=== PATIENT | female | born 1995 | race Caucasian/White ===

== ENCOUNTER → 2022-05-18 | Outpatient (CLI) | payer BC, SELFPAY ==
[2022-05-18 17:20] LABS: Absolute Lymphocyte Count 2.97 X10^3/uL (0.83-4.51); Absolute Neutrophil Count 3.2 X10^3/uL (2.0-7.7); Basophil# 0.07 X10^3/uL; Eosinophil# 0.22 X10^3/uL; Hematocrit 37.9 % (37-47); Hemoglobin 12.9 g/dL (12.0-15.0); Lymphocyte # 2.97 X10^3/ul (0.83-4.51); Lymphocyte % 40.8 % (19-41); Mean Corpuscular Hgb 29.3 pg (27.0-32.0); Mean Corpuscular Volume 85.9 fL (81-99); Mean Platelet Vol. 9.9 fl (6.2-12.0); Monocyte# 0.78 X10^3/uL; Monocyte% 10.7 % (0-10); NRBC Flagged by Analyzer 0 % (0-5); Neutrophil # 3.23 X10^3/uL (2.7-7.7); Neutrophil % 44.4 % (47-70); Platelet Count 235 K/mm3 (150-450); RBC Distribution Width CV 12.5 % (11.6-14.6); RBC Distribution Width SD 39.5 fl (35.1-43.9); Red Blood Count 4.41 M/mm3 (4.2-5.4); White Blood Count 7.3 K/mm3 (4.4-11.0)
[2022-05-18 17:43] LABS: Erythrocyte Sedimentation Rate 12 mm/hr (0-30)
[2022-05-18 18:18] LABS: ALB/GLOB Ratio 0.9 RATIO (0.9-2.4); AST(SGOT) 18 U/L (15-37); Alanine Aminotransfer ALT/SGPT 29 U/L (13-56); Albumin, Serum 3.7 g/dL (3.2-5.0); Alkaline Phosphatase 84 U/L (45-117); Anion Gap 7 (5-15); BUN 9 mg/dL (7-18); BUN/Creat Ratio 13.7 RATIO (10-20); CRP < 2.90 mg/L (0.0-3.0); Calcium,Total 8.9 mg/dL (8.5-10.1); Chloride 106 mmol/L (98-107); Creatinine, Serum 0.66 mg/dL (0.55-1.02); EST Glomerular Filtration Rate 117 mL/min (>60); Est Glom Filt Rate - Afr Amer 141 mL/min (>60); Free T3 2.9 pg/mL (2.18-3.98); Glucose 92 mg/dL (74-106); LDH 203 U/L (84-246); Potassium 3.6 mmol/L (3.5-5.1); Protein, Total 7.7 g/dL (6.4-8.2); Sodium Level 140 mmol/L (136-145); T4 Free Direct 1.03 ng/dL (0.76-1.46); Thyroid Stim Hormone (TSH) 0.93 uIU/mL (0.358-3.74)
[2022-05-22 13:07] LABS: Anti-Centromere B Ab <0.2 AI (0.0-0.9); Anti-Chromatin <0.2 AI (0.0-0.9); Anti-Jo <0.2 AI (0.0-0.9); Anti-Scleroderma-70 AB <0.2 AI (0.0-0.9); RNP Ab 0.2 AI (0.0-0.9); SJOGREN'S Anti-SS-A test < 0.2 AI (0.0-0.9); SJOGREN'S Anti-SS-B test 1.3 AI (0.0-0.9); Smith Ab <0.2 AI (0.0-0.9)
[2022-05-22 14:08] LABS: Endomysial Antibody IgA Negative (Negative)
[2022-05-22 15:07] LABS: Albumin 3.9 g/dL (2.9-4.4); Alpha-1-Globulins 0.3 g/dL (0.0-0.4); Alpha-2-Globulins 0.8 g/dL (0.4-1.0); Gamma Globulin 1.3 g/dL (0.4-1.8); Immunoglobulin A 156 mg/dL (87-352); Immunoglobulin E < 2 IU/mL (6-495); Immunoglobulin G 1185 mg/dL (586-1602); Immunoglobulin M 179 mg/dL (26-217); PROEL- TOTAL PROTEIN 7.4 g/dL (6.0-8.5)
[2022-05-22 16:07] LABS: Cytoplasmic Ab (C-ANCA) <1:20 titer (Neg:<1:20); Perinuclear Ab (P-ANCA) <1:20 titer (Neg:<1:20)
[2022-05-22 16:17] LABS: Immunoglobulin A 159 mg/dL (87-352); t-Transglutaminase IgA <2 U/mL (0-3)
[2022-05-22 16:24] LABS: Anti-dsDNA Ab <1 IU/mL (0-9)
== END | disposition home or self-care (01) ==
LOC: LAB 16:30
PROVIDERS: Referring Provider Internal Medicine Gastroenterology; Visit Provider Internal Medicine Gastroenterology
DX: R19.7 Diarrhea, unspecified (principal)
CPT/HCPCS: 36415; 80053; 82533; 82784; 82785; 83516; 83615; 84165; 84439; 84443; 84481; 85025; 85652; 86140; 86225; 86235; 86255; 86256; 86334

== ENCOUNTER → 2022-06-03 | Outpatient (CLI) | payer BC, SELFPAY ==
[2022-06-08 18:52] LABS: Pancreatic Elastase, Fecal 485 (>200)
[2022-06-08 18:54] LABS: Calprotectin, Stool <16 ug/g (0-120)
== END | disposition home or self-care (01) ==
LOC: LAB 09:00
PROVIDERS: Referring Provider Internal Medicine Gastroenterology; Visit Provider Internal Medicine Gastroenterology
DX: R19.7 Diarrhea, unspecified (principal)
CPT/HCPCS: 82653; 83630; 83993

== ENCOUNTER → 2022-08-09 | Outpatient (CLI) | payer BC, SELFPAY ==
[2022-08-14 17:07] LABS: Beef <0.10 kU/L (Class 0); Clam <0.10 kU/L (Class 0); Codfish <0.10 kU/L (Class 0); Corn <0.10 kU/L (Class 0); Egg, White <0.10 kU/L (Class 0); Egg, Whole <0.10 kU/L (Class 0); Milk (Cow) <0.10 kU/L (Class 0); Peanut <0.10 kU/L (Class 0); Pork <0.10 kU/L (Class 0); SCALLOP <0.10 kU/L (Class 0); SESAME SEED <0.10 kU/L (Class 0); Shrimp <0.10 kU/L (Class 0); Soybean <0.10 kU/L (Class 0); Walnut, (Food) <0.10 kU/L (Class 0); Wheat <0.10 kU/L (Class 0)
[2022-08-15 11:10] LABS: Chocolate <0.10 kU/L (Class 0)
== END | disposition home or self-care (01) ==
LOC: LAB 16:18
PROVIDERS: Referring Provider Internal Medicine Gastroenterology; Visit Provider Internal Medicine Gastroenterology
DX: D80.8 Other immunodeficiencies with predominantly antibody defects (principal); K21.9 Gastro-esophageal reflux disease without esophagitis; R19.7 Diarrhea, unspecified
CPT/HCPCS: 36415; 86003; 86005

== ENCOUNTER 2023-06-09 00:27 | Inpatient (IN) | payer BC, SELFPAY ==
[2023-06-09] VITALS (29 sets, daily range): BP systolic 97–132; BP diastolic 49–85; PULSE 68–153; RESP 16; TEMP 36.5–37.1; O2SAT 93–100; BMI 29.1
[2023-06-09] MEDS: LACTATED RINGERS 500 ML 999 ML IV (00:30)
--- NOTE | 2023-06-09 00:30 | PCM.HP.OB ---
HPI - General HPI Narrative TOMER SANTOS, is a 27 F who presents at 40w2d in active labor. SROM around 2330 on 06/08/23. Maternal Data Information JESSICA Calculator Estimated Delivery Date Method Current WG Current Estimate 06/07/23 Manual 40w 2d PFSH PFSH Allergy/AdvReac Type Severity Reaction Status Date / Time morphine Allergy Other Verified 06/09/23 00:29 NST FHR Rate Baby A Baseline: 125 Variability:: Moderate Accelerations:: 15 x 15 FHR Category:: Category I Uterine Activity:: every 1.5-2 minutes strong ROS Constitutional Constitutional: Reports systems reviewed and no addt'l complaints, except as documented; Denies headache(s) Eyes Eyes: Denies acute decrease in peripheral vision, blurry vision or change in vision ENT HEENT: Reports systems reviewed and no addt'l complaints, except as documented Cardiovascular Cardiovascular: Denies chest pain or dizziness Respiratory/Chest Respiratory/Chest: Denies cough, dyspnea, dyspnea on exertion, shortness of breath at rest or shortness of breath with exertion Gastrointestinal Gastrointestinal: Denies abdominal pain, diarrhea, nausea or vomiting Musculoskeletal Musculoskeletal: Denies limited range of motion Integumentary Integumentary: Reports systems reviewed and no addt'l complaints, except as documented Neurologic Neurologic: Reports systems reviewed and no addt'l complaints, except as documented Psychiatric Psychiatric: Reports systems reviewed and no addt'l complaints, except as documented Endocrine Endocrinology: Reports systems reviewed and no addt'l complaints, except as documented Hematologic/Lymphatic Hematologic/Lymphatic: Reports systems reviewed and no addt'l complaints, except as documented Allergic/Immunologic Allergic/Immunologic: Reports systems reviewed and no addt'l complaints, except as documented Vital Signs Vital Signs Vital Signs: 06/09/23 00:30 06/09/23 00:30 Pulse Rate 72 Blood Pressure 124/80 H BP Systolic 124 BP Diastolic 80 Weight Weight: 186 lb Body Mass Index (BMI) 29.1 Physical Exam Const alert and oriented x3 General Appearance: cooperative Orientation / Consciousness: awake, oriented to person, oriented to place and oriented to time Exam Limitations: no limitations HEENT normocephalic Head and Scalp: normal to inspection, normocephalic and atraumatic Face and Sinus: normal facial exam Eyes General Eye: normal appearance of both eyes Neck full ROM Chest Chest: symmetrical chest wall rise Resp normal respiratory effort and normal air movement Auscultation: clear to auscultation bilaterally Cardio regular rate, regular rhythm, S1 normal heart sound, S2 normal heart sound, no murmurs, no rub, no gallops and no clicks GI normal to inspection, nondistended, normoactive bowel sounds and non-tender appearance of the vagina normal Bladder / Kidney Exam: no CVA tenderness Manual OB Exam: estimated gestational size appropriate, presentation cephalic, dilated 6.5cm, effaced 80% and station 0 Amniotic Fluid: clear amniotic fluid Back/Spine normal ROM Extremity normal to inspection and full ROM Skin no rashes or lesions noted Neuro oriented x3, CN's II-XII intact bilaterally and moves all extremities Sensorium / Orientation: awake, alert and oriented to person Motor Exam: clonus absent Deep Tendon Reflexes: Rt Patellar (L4): 2+ and Lt Patellar (L4): 2+ Labs Labs Labs: Hct 37.9 % (37-47) Hgb 12.9 g/dL (12.0-15.0) Miscellaneous Test GBS negative RPR NR Rubella Immune HBsAG negative HepC negative HIV negative O positive GC/CT negative Assessment & Plan (1) Anemia affecting : (2) 40 weeks gestation of : (3) Active labor at term: (4) SROM (spontaneous rupture of membranes): (5) History of anorexia nervosa: PLAN: Plan 1) Admit to labor and delivery 2) Routine labs 3) Continuous EFM 4) Epidural for pain management upon request 5) Positonal changes 6) collaborative physician, notified of patient admission, status, above assessment and plan
--- OUTSIDE RECORDS SUMMARY | 2023-06-09 00:33 | XMS RPT_ITS | CCD ---
Author Name Unknown Address [id number] [place] [address] Organization [facility] Care Team Providers Care Land Leases And Rentals Manager Name Role Phone TEODORO MYERS Attending Unavailable Unavailable Primary Care Provider Unavailabl e NELI CADET Attending Unavailable NELI CADET Attending Unavailable KRISTAN JACKSON Attending Unavailable KRISTAN JACKSON Referring Unavailable STEVEN CABRERA Attending Unavail able TEODORO ALEJANDRO Attending Unavailable NELI CADET Attending Unavailable STEVEN CABRERA Attending Unavail able KRISTAN JACKSON Attending Unavailable KAYLA DURAN Referring Unavailable WISWELLKRISTAN Attending Unavailable TEODORO ALEJANDRO Attending Unavailable KAYLA DURAN Attending Unavailable DONNA, KRISTAN Attending Unavailable CHELLY, BEBA Attending Unavailable TEODORO ALEJANDRO Referring Unavailable AUNDREA CASTELAN Attending Unavailable NELI CADET Referring Unavailable CHELLY, BEBA Referring Unavailable CHELLY, BEBA Referring Unavailable NELI CADET Attending Unavailable KAYLA DURAN Attending Unavailable Allergies Allergy Classification Reported Allergen(s) Allergy Type Date of Onset Reaction(s) Facility (20 sources) Morphine; Translations: [MORPHINE] Drug Allergy 06-23-2022 Itching, Rash, Swelling [facility] Medications Completed/Discontinued Medications Medication Drug Class(es) Dates Sig (Normalized) Sig (Original) amoxicillin 875 mg oral tablet (3 sources) Penicillin-class Antibacterial Start: 04-11-2023 take 1 tablet by mouth every twelve hours amoxicillin (AMOXIL) 875 mg tablet Take 1 tablet by mouth every 12 hours. 0 04/11/2023 Active Problems Active Problems Problem Classification Problem Date Documented Date Episodic/Chronic Deficiency and other anemia (7 sources) Anemia; Translations: [Other specified anemias] Onset: 03-20-2023 03-20-2023 Episodic Immunizations and screening for infectious disease (5 sources) Patient encounter status; Translations: [Encounter for screening for human papillomavirus (HPV)] Episodic Other complications of (1 source) Anemia of ; Translations: [Anemia complicating , third trimester] 04-16-2023 Chronic Other complications of (1 source) Anemia complicating , third trimester; Translations: [Anemia during in third trimester] Onset: 04-16-2023 Chronic Other complications of (2 sources) Nausea and vomiting; Translations: [Vomiting of , unspecified] Episodic Other female genital disorders (2 sources) Abnormal uterine bleeding; Translations: [Abnormal uterine and vaginal bleeding, unspecified] Chronic Other female genital disorders (1 source) Abnormal uterine and vaginal bleeding, unspecified; Translations: [Abnormal uterine bleeding (AUB)] Onset: 09-11-2022 Chronic Other and delivery including normal (15 sources) Normal ; Translations: [Encounter for supervision of normal first , unspecified trimester] Onset: 10-26-2022 Episodic Other screening for suspected conditions (not mental disorders or infectious disease) (1 source) Cancer cervix screening status; Translations: [Encounter for screening for malignant neoplasm of cervix] Episodic Other skin disorders (1 source) Skin lesion; Translations: [Disorder of the skin and subcutaneous tissue, unspecified] Episodic Residual codes; unclassified (1 source) Gestation period, 12 weeks; Translations: [12 weeks gestation of ] 11-23-2022 Episodic Residual codes; unclassified (1 source) Gestation period, 16 weeks; Translations: [16 weeks gestation of ] 12-21-2022 Episodic Residual codes; unclassified (1 source) Gestation period, 19 weeks; Translations: [19 weeks gestation of ] 01-16-2023 Episodic Residual codes; unclassified (1 source) Gestation period, 20 weeks; Translations: [20 weeks gestation of ] 01-23-2023 Episodic Residual codes; unclassified (1 source) Gestation period, 21 weeks; Translations: [21 weeks gestation of ] 01-30-2023 Episodic Residual codes; unclassified (1 source) Gestation period, 24 weeks; Translations: [24 weeks gestation of ] 02-20-2023 Episodic Residual codes; unclassified (1 source) Gestation period, 28 weeks; Translations: [28 weeks gestation of ] 03-19-2023 Episodic Residual codes; unclassified (1 source) Gestation period, 30 weeks; Translations: [30 weeks gestation of ] 04-02-2023 Episodic Residual codes; unclassified (1 source) Gestation period, 32 weeks; Translations: [32 weeks gestation of ] 04-16-2023 Episodic Residual codes; unclassified (1 source) Gestation period, 34 weeks; Translations: [34 weeks gestation of ] 05-02-2023 Episodic Residual codes; unclassified (1 source) 38 weeks gestation of ; Translations: [38 weeks gestation of ] Onset: 05-30-2023 Episodic Residual codes; unclassified (1 source) 37 weeks gestation of ; Translations: [37 weeks gestation of ] Onset: 05-22-2023 Episodic Residual codes; unclassified (1 source) 24 weeks gestation of ; Translations: [24 weeks gestation of ] Onset: 03-19-2023 Episodic Past or Other Problems Problem Classification Problem Date Documented Da te Episodic/Chronic Abdominal pain (5 sources) Generalized abdominal pain; Translations: [Generalized abdominal pain] Onset: 09-11-2022 Episodic Other complications of (1 source) Vomiting of , unspecified; Translations: [Nausea and vomiting during ] Onset: 10-26-2022 Episodic Residual codes; unclassified (20 sources) FH: Congenital heart disease; Translations: [Family history of other congenital malformations, deformations and chromosomal abnormalities] Onset: 10-12-2022 Episodic Residual codes; unclassified (1 source) 21 weeks gestation of ; Translations: [21 weeks gestation of ] Onset: 01-30-2023 Episodic Residual codes; unclassified (1 source) 16 weeks gestation of ; Translations: [16 weeks gestation of ] Onset: 01-16-2023 Episodic Screening and history of mental health and substance abuse codes (20 sources) H/O: anorexia nervosa; Translations: [Personal history of other mental and behavioral disorders] Onset: 10-12-2022 Episodic Results Test Name Value Interpretation Reference Range Facil ity Vital Signs Date Time Vital Sign Value Performing Clinician Amina hart 05-02-2023 16:34-0500 Body weight 80.65 kg Kayla Plotila BARKER Work Phone: [facility] 05-02-2023 16:34-0500 Diastolic blood pressure 78 mm[Hg] Kayla Duran INDUSTRIAL ROOFER HELPER.CNM Work Phone: [facility] 05-02-2023 16:34-0500 Systolic blood pressure 120 mm[Hg] Kayla Duran INDUSTRIAL ROOFER HELPER.CNM Work Phone: [facility] 04-16-2023 16:30-0500 Body weight 79.83 kg Teodoro Alejandro INDUSTRIAL ROOFER HELPER.CNM Work Phone: [facility] 04-16-2023 16:30-0500 Diastolic blood pressure 60 mm[Hg] Teodoro Alejandro INDUSTRIAL ROOFER HELPER.CNM Work Phone: [facility] 04-16-2023 16:30-0500 Systolic blood pressure 108 mm[Hg] Teodoro Alejandro INDUSTRIAL ROOFER HELPER.CNM Work Phone: [facility] 04-02-2023 16:09-0500 Body weight 78.47 kg Kristan Jackson MD Work Phone: [facility] 04-02-2023 16:09-0500 Diastolic blood pressure 60 mm[Hg] Kristan Jackson MD Work Phone: [facility] 04-02-2023 16:09-0500 Systolic blood pressure 102 mm[Hg] Kristan Jackson MD Work Phone: [facility] 03-19-2023 15:06-0500 Body weight 77.11 kg Aundrea Castelan MD Work Phone: [facility] 03-19-2023 15:06-0500 Diastolic blood pressure 62 mm[Hg] Aundrea Castelan MD Work Phone: [facility] 03-19-2023 15:06-0500 Systolic blood pressure 102 mm[Hg] Aundrea Castelan MD Work Phone: [facility] 02-20-2023 16:10-0400 Body weight 77.11 kg Neli Cadet MD Work Phone: [facility] 02-20-2023 16:10-0400 Diastolic blood pressure 62 mm[Hg] Neli Cadet MD Work Phone: [facility] 02-20-2023 16:10-0400 Systolic blood pressure 102 mm[Hg] Neli Cadet MD Work Phone: [facility] 01-30-2023 14:29-0400 Body temperature 99.19 [degF] Neli Cadet MD Work Phone: [facility] 01-30-2023 14:29-0400 Body weight 74.75 kg Neli Cadet MD Work Phone: [facility] 01-30-2023 14:29-0400 Diastolic blood pressure 62 mm[Hg] Neli Cadet MD Work Phone: [facility] 01-30-2023 14:29-0400 Systolic blood pressure 108 mm[Hg] Neli Cadet MD Work Phone: [facility] 01-23-2023 15:46-0400 Body weight 75.3 kg Neli Cadet MD Work Phone: [facility] 01-23-2023 15:46-0400 Diastolic blood pressure 56 mm[Hg] Neli Cadet MD Work Phone: [facility] 01-23-2023 15:46-0400 Systolic blood pressure 94 mm[Hg] Neli Cadet MD Work Phone: [facility] 12-21-2022 15:21-0400 Body weight 72.94 kg Kayla Duran INDUSTRIAL ROOFER HELPER.CNM Work Phone: [facility] 12-21-2022 15:21-0400 Diastolic blood pressure 56 mm[Hg] Kayla Warnerts INDUSTRIAL ROOFER HELPER.CNM Work Phone: [facility] 12-21-2022 15:21-0400 Systolic blood pressure 90 mm[Hg] Kayla Plotts INDUSTRIAL ROOFER HELPER.CNM Work Phone: [facility] 11-23-2022 15:48-0400 Body weight 72.58 kg Elina Stinson APRN.SCREEN AND CYCLONE REPAIRER Work Phone: [facility] 11-23-2022 15:48-0400 Diastolic blood pressure 70 mm[Hg] Elina Stinson INDUSTRIAL ROOFER HELPER.SCREEN AND CYCLONE REPAIRER Work Phone: [facility] 11-23-2022 15:48-0400 Systolic blood pressure 110 mm[Hg] Elina Stinson INDUSTRIAL ROOFER HELPER.SCREEN AND CYCLONE REPAIRER Work Phone: [facility] 10-26-2022 14:54-0400 Body height 170.2 cm Kristan Jackson MD Work Phone: [facility] 10-26-2022 14:54-0400 Body weight 75.75 kg Kristan Jackson MD Work Phone: [facility] 10-26-2022 14:54-0400 Diastolic blood pressure 70 mm[Hg] Kristan Jackson MD Work Phone: [facility] 10-26-2022 14:54-0400 Systolic blood pressure 110 mm[Hg] Kristan Jackson MD Work Phone: [facility] 09-11-2022 15:47-0400 Diastolic blood pressure 60 mm[Hg] Beba Chelly INDUSTRIAL ROOFER HELPER.SCREEN AND CYCLONE REPAIRER Work Phone: [facility] 09-11-2022 15:47-0400 Systolic blood pressure 100 mm[Hg] Beba Alburgh INDUSTRIAL ROOFER HELPER.SCREEN AND CYCLONE REPAIRER Work Phone: [facility] 06-23-2022 15:00-0500 Body height 172.7 cm Kristan Jackson MD Work Phone: [facility] 06-23-2022 15:00-0500 Body weight 76.66 kg Kristan Jackson MD Work Phone: [facility] 06-23-2022 15:00-0500 Diastolic blood pressure 68 mm[Hg] Kristan Jackson MD Work Phone: [facility] 06-23-2022 15:00-0500 Systolic blood pressure 110 mm[Hg] Kristan Jackson MD Work Phone: [facility] Encounters Encounter Date Encounter Type Care Provider Facility Start: 06-06-2023 End: 06-06-2023 ambulatory STEVEN ALMANZA Facility:[facility] Start: 05-30-2023 End: 05-31-2023 ambulatory TEODORO ALEJANDRO Facility:[facility] Start: 05-22-2023 End: 05-23-2023 ambulatory STEVEN ALMANZA Facility:[facility] Start: 05-17-2023 End: 05-17-2023 ambulatory NELI CADET Facility:[facility] Start: 05-02-2023 End: 05-02-2023 ambulatory KAYLA DURAN Facility:[facility] Start: 05-02-2023 End: 05-02-2023 Patient encounter procedure Kayla Duran INDUSTRIAL ROOFER HELPER.CNM Work Phone: OB/Gynecology Procedures Date Procedure Procedure Detail Performing Clinician Start: 05-02-2023 RSV VACCINE, BIVALEN T (ABRYSVO) Kayla Duran INDUSTRIAL ROOFER HELPER.CNM Work Phone: Start: 05-02-2023 URINE OB DIP B/O Amanda Duran INDUSTRIAL ROOFER HELPER.CNM Work Phone: Start: 04-16-2023 URINE OB DIP B/O Shahzad Alejandro INDUSTRIAL ROOFER HELPER.CNM Work Phone: Start: 04-02-2023 INFLUENZA VACCINE, A GE 6 MO - 64 YR, QUADRIVALENT (AFLURIA, FLULAVAL, FLUZONE) Kristan Jackson MD Work Phone: Start: 04-02-2023 URINE OB DIP B/O Kristan davis MD Work Phone: Start: 03-19-2023 URINE OB DIP B/O Svitlana Castelan MD Work Phone: Start: 02-20-2023 URINE OB DIP B/O Neli Cadet MD Work Phone: Start: 01-30-2023 Urnls dip stick/tabl et rgnt auto w/o microscopy Neli Cadet MD Work Phone: Start: 01-23-2023 URINE OB DIP B/O Neli Cadet MD Work Phone: Start: 01-16-2023 Us preg uterus after 1st trimest 05/14 gestation Kayla Duran INDUSTRIAL ROOFER HELPER.CNM Work Phone: Start: 12-21-2022 URINE OB DIP B/O Amanda Duran APRN.[employer] Work Phone: Start: 10-26-2022 Antibody screen Kristan buckner MD Work Phone: Start: 10-26-2022 Antibody screen NELI CADET Plan of Treatment Date Care Activity Detail Author Start: 03-19-2033 Urine microalbumin profile [facility] Start: 06-23-2025 PAP TESTING PAP TESTING [facility] Start: 06-23-2025 Screening for malign ant neoplasm of cervix Pap Testing [facility] Start: 04-12-2023 RSV Vaccine (1 - Ris k 1-dose series) RSV Vaccine (1 - Risk 1-dose series) [facility] Start: 02-20-2023 End: 04-22-2023 CBC W Auto Differential panel - Blood CBC + DIFF Lab Routine 24 weeks gestation of Expected: 02/20/2023, Expires: 04/22/2023 [facility] Work Phone: Immunizations Immunization Date Immunization Notes Care Provider Fa [facility] 05-02-2023 respiratory syncytia l virus (RSV) vaccine, bivalent (ABRYSVO) Kayla Duran APRN.[employer] Work Phone: [facility] 04-02-2023 influenza, injectabl e, quadrivalent, contains preservative Kristan Jackson MD Work Phone: [facility] 03-19-2023 tetanus toxoid, redu jadyn diphtheria toxoid, and acellular pertussis vaccine, adsorbed Aundrea Castelan MD Work Phone: [facility] 03-10-2022 influenza virus vacc ine, unspecified formulation Neli Cadet MD Work Phone: [facility] Payers Date Payer Category Payer Unknown [employer] BLUE CARD PPO OOS [id number] 2022-Present [phone] [id number] [place] [address] PPO [id number] 2022 Unknown [id number] 2021 Unknown [id number] 1995 Unknown [id number] Social History Date Type Detail Facility Tobacco smoking stat [facility] Tobacco smoking consumption unknown [facility] Start: 1995 Sex Assigned At Not on file [facility] Start: 06-23-2022 Tobacco smoking stat [facility] Never smoked tobacco [facility] Start: 06-23-2022 Tobacco use and exposure Smokeless t obacco non-user [facility] Start: 06-23-2022 End: 09-11-2022 Alcohol intake Current drinker of alcohol (finding) [facility] Start: 10-12-2022 End: 05-02-2023 Alcohol intake Ex-drinker (finding) [facility] Start: 10-12-2022 Education 17 [facility] Start: 09-14-2022 [facility] Start: 09-18-2022 End: 10-26-2022 History of Social function [facility] Start: 09-18-2022 End: 10-26-2022 Tobacco use panel [facility] National Score (1-10 0), lower number is lower risk 92 [facility] Goals Date Patient Goal Desired Activity /State Personal health goal Clinical Notes 05-26-2022 to 05-31-2023 Quick Notes - Kayla Duran APRN.CNM - 05/02/2023 4:43 PM ESTPatient InstructionsTelephone Encounter - Delia Mcdaniel RN - 04/26/2023 12:56 PM ESTPatient Instructions Note Date & Type Note Facility 05-31-2023 Note HNO ID: [id number] Author: ?, ?, ? Service: ? Author Type: ? Type: Progress Notes Filed: 05/31/2023 09:12 Note Text: POPULATION HEALTH NAVIGATION OUTREACH Action/ 3rd attempt- Called patient as requested by patient. Left a voicemail and asked that she call me back. OB/PEDS Patient Identified by Name and : NO Outreach Outcome/Action Unable to reach patient: Left message Did you use a PCP flex slot to schedule this appointment? N/A Navigation Signature: Mathieu Stallings May 31, 2023 9:10 AM [facility] 05-24-2023 Note Patient Outreach (FREDIS TNAV) TOMER SANTOS ([id number]) 1995 F Date Time Provider Department 05/24/23 MATHIEU LING (IDANIA) NETNAV During your visit today, we recorded the following information about you: Mathieu Castorena 05/24/2023 10:26 AM Signed POPULATION HEALTH NAVIGATION OUTREACH Action/FYI Called and spoke to patient and she doesn't have a pediatrican selected. she said to send her the link via [employer] and I can call her next week. [employer] message sent per patient request. OB/PEDS Patient Identified by Name and : YES, via phone Outreach Outcome/Action Spoke to patient / parent / legal guardian: Patient will return the call or ask for return call [employer] message sent Did you use a PCP flex slot to schedule this appointment? N/A Reason for Outreach [place] Payer: Payor: AMIRA / Plan: BLUE CARD PPO OOS / Product Type: PPO / Care Gap Reviewed:: N/A Reminder: Reminder note to check Health Maintenance for items below Health Maintenance items due: HPV Vaccine(1 - 2-dose series) due on 2005 Covid-19 Vaccine(2022- season) due on 01/12/2023 Depression Assessment Never done Navigation Signature: Mathieu tSallings May 24, 2023 10:21 AM Mathieu Castorena 05/31/2023 9:12 AM Signed POPULATION HEALTH NAVIGATION OUTREACH Action/I 3rd attempt- Called patient as requested by patient. Left a voicemail and asked that she call me back. OB/PEDS Patient Identified by Name and : NO Outreach Outcome/Action Unable to reach patient: Left message Did you use a PCP flex slot to schedule this appointment? N/A Navigation Signature: Mathieu Stallings May 31, 2023 9:10 AM Allergies As of Date: 05/24/2023 Noted Allergy Reaction MORPHINE 06/23/2022 9 - Itching 2 - Rash 7 - Swelling Date Reviewed: 05/22/2023 Reviewed by: Mathieu Mosqueda MA - Fully Assessed Reason for Visit: Population Health Navigation Outreach [3910] Cmt: OB/PEDS Prescriptions as of 05/31/2023 - ferrous sulfate (IRON ORAL) Take by mouth. - prental multivitamin 27 mg iron- 800 mcg tablet Take 1 tablet by mouth once daily. Problem List As Of Date 05/24/2023 Noted Resolved History of anorexia nervosa [Z86.59] 10/12/2022 Family history of congenital heart defect [Z82.*10/12/2022 Patient request for diagnostic testing [Z01.89] 10/12/2022 Other specified anemias [D64.89] 03/20/2023 Encounter Status:Closed by MATHIEU CASTORENA on 05/24/23 [facility] 05-24-2023 Note HNO ID: [id number] Author: ?, ?, ? Service: ? Author Type: ? Type: Progress Notes Filed: 05/24/2023 10:26 Note Text: POPULATION HEALTH NAVIGATION OUTREACH Action/KWAMEI Called and spoke to patient and she doesn't have a pediatrican selected. she said to send her the link via [employer] and I can call her next week. [employer] message sent per patient request. OB/PEDS Patient Identified by Name and : YES, via phone Outreach Outcome/Action Spoke to patient / parent / legal guardian: Patient will return the call or ask for return call [employer] message sent Did you use a PCP flex slot to schedule this appointment? N/A Reason for Outreach [place] Payer: Payor: NABEELEM / Plan: BLUE CARD PPO OOS / Product Type: PPO / Care Gap Reviewed:: N/A Reminder: Reminder note to check Health Maintenance for items below Health Maintenance items due: HPV Vaccine(1 - 2-dose series) due on 2005 Covid-19 Vaccine( season) due on 01/12/2023 Depression Assessment Never done Navigation Signature: Mathieu Stallings May 24, 2023 10:21 AM [facility] 05-02-2023 Miscellaneous Notes Formattin g of this note might be different from the original. Tomer Santos is a 27 year old female who presents at 34w6d Estimated Date of Delivery: 06/07/23 for a routine visit. Good movement. Denies headache, visual changes, chest pain, shortness of breath, vaginal bleeding, leakage of fluid, or dysuria. Feeling well, no complaints. Desires RSV vaccine today. Size equal to dates. PTL precautions and timing of contractions reviewed. RTC in 2 weeks for JOVANNY with GBS. Kayla Duran APRN.CNM documented in this encounter [facility] 05-02-2023 Instructions Mathieu Mosqueda MA - 05/02/2023 4:29 PM EST SEQUENTIAL SCREENINGS The [facility] offers sequential screenings for women who are interested in screenings for chromosomal abnormalities and certain defects during a . The sequential screen combines ultrasound and blood tests to determine the risk of chromosomal abnormalities, including Down's Syndrome (Trisomy 21) and Trisomy 18, as well as open neural tube defects including spina bifida. Ultrasound examination is performed between 11 weeks and 13 weeks gestational age. Blood tests are drawn after the ultrasound and again later in the between 15 and 21 weeks gestational age. Please let your physician know if you are interested in this testing. It will require an appointment with our tap and die maker technician. This is not an ultrasound performed by a physician in our office during a routine visit. SIGNS AND SYMPTOMS OF LABOR 1. Contractions every 10 minutes or more often 2. Clear, pink, or brownish fluid (water) leaking from vagina 3. Feeling that baby is pushing down, pressure 4. Low, dull backache 5. Cramps that feel like a period 6. Cramps with or without diarrhea If you notice any of the above symptoms, contact our office at [phone] and ask to speak with a nurse. After hours, you can call doctors registry at [phone] OR call [facility] at [phone] and ask to have the doctor production sound mixer paged. If you consider this an emergency, dial or go to your nearest emergency department. NEED HELP? Are you dealing with a violent or abusive relationship? Are you a victim of rape or sexual assult? Call [facility] ([place]) 24 hour Crisis Hotline: 403.290.5836 or 931-722-6787. MANUAL Your Guide to a Healthy manual is now on-line. Visit the [email or web address] [email or web address] to download your free copy documented in this encounter [facility] 04-26-2023 Miscellaneous Notes Formattin g of this note might be different from the original. Patient notified. Delia Mcdaniel RN This is likely normal as long as no signs vaginitis or STD concerns. Neli Cadet MD documented in this encounter [facility] 04-16-2023 Miscellaneous Notes Formattin g of this note might be different from the original. JUDIT-S: Tomer Santos is a 27 year old female who presents at 32w4d with JESSICA:06/07/2023, by Last Menstrual Period for a routine visit.Good FM. Denies headache, visual changes, chest pain, shortness of breath, vaginal bleeding, leakage of fluid, or dysuria. Feeling well, no complaints. O: See flow sheet Gen: No apparent distress Abd: Gravid, nontender A:ASSESSMENT/PLAN: 1. Anemia during in third trimester 2. Encounter for supervision of normal first in third trimester 3. 32 weeks gestation of P: 1) PTL precautions reviewed and when to call 2) RTO in 2 weeks 3) Repeat CBC today, continue iron supplement for anemia 4) RSV vaccine reviewed Teodoro Alejandro APRN.CNM documented in this encounter [facility] 04-16-2023 Tano Darby Cma - 04/16/2023 4:23 PM EST SEQUENTIAL SCREENINGS The [facility] offers sequential screenings for women who are interested in screenings for chromosomal abnormalities and certain defects during a . The sequential screen combines ultrasound and blood tests to determine the risk of chromosomal abnormalities, including Down's Syndrome (Trisomy 21) and Trisomy 18, as well as open neural tube defects including spina bifida. Ultrasound examination is performed between 11 weeks and 13 weeks gestational age. Blood tests are drawn after the ultrasound and again later in the between 15 and 21 weeks gestational age. Please let your physician know if you are interested in this testing. It will require an appointment with our tap and die maker technician. This is not an ultrasound performed by a physician in our office during a routine visit. SIGNS AND SYMPTOMS OF LABOR 1. Contractions every 10 minutes or more often 2. Clear, pink, or brownish fluid (water) leaking from vagina 3. Feeling that baby is pushing down, pressure 4. Low, dull backache 5. Cramps that feel like a period 6. Cramps with or without diarrhea If you notice any of the above symptoms, contact our office at [phone] and ask to speak with a nurse. After hours, you can call doctors registry at [phone] OR call [facility] at [phone] and ask to have the doctor production sound mixer paged. If you consider this an emergency, dial 91-0 or go to your nearest emergency department. NEED HELP? Are you dealing with a violent or abusive relationship? Are you a victim of rape or sexual assult? Call [facility] ([place]) 24 hour Crisis Hotline: 324.847.4160 or 149-137-1689. MANUAL Your Guide to a Healthy manual is now on-line. Visit [email or web address]/HealthyPre gnancyGuide to download your free copy documented in this encounter [facility] 04-11-2023 Miscellaneous Notes Formattin g of this note might be different from the original. Patient notified. Voiced understanding. They prescribed her Amoxicillin for the ear infection. Delia Mcdaniel RN Agree with plan of care. She can add in Zinc 30 mg, Vitamin C 500 mg, and Vitamin D 1000 international unit(s) to help with immune system. Did they start her on antibiotics for ear infection? Kayla Duran APRN.CNM 31w6d Patient calling to let provider know she tested positive for covid today at [facility]. Symptoms started on 04/09/23. Next visit with JUDIT on 04/16/23. C/o fever, sore throat, cough, congestion and was diagnosed with double ear infection too. She has been taking tylenol for fever-- highest so far was 101.5. She has been pushing fluids and resting. She just got some Gatorade to get electrolytes too. Advised to continue pushing fluids/resting and to call PCP with worsening symptoms or go to ER with shortness of breath or chest pain. Please advise. Dottie Hernandez RN documented in this encounter [facility] 04-09-2023 Miscellaneous Notes Formattin g of this note might be different from the original. Patient had called in stating that she had some light bleeding after intercourse and called in last night and spoke with Dr Almanza. She is 31w4d. Calling with update as requested by Dr Almanza. Bleeding stopped 2 hours after she spoke with her. Baby has continued to be active. RENAE documented in this encounter [facility] 04-02-2023 Miscellaneous Notes Formattin g of this note might be different from the original. SW- No ctx, vb, lof. Good FM PE: Gen- NAD, well appearing Abd- Soft, gravid, NT See flowsheet A/p 31 wk gestation - Anemia: Cont iron. Repeat CBC next visit - Flu shot given today - Information given on in person and online childbirth classes - RTO 2 wks Kristan Jackson DO documented in this encounter [facility] 04-02-2023 Instructions Kristan Jackson MD - 04/02/2023 4:04 PM EST SEQUENTIAL SCREENINGS The [facility] offers sequential screenings for women who are interested in screenings for chromosomal abnormalities and certain defects during a . The sequential screen combines ultrasound and blood tests to determine the risk of chromosomal abnormalities, including Down's Syndrome (Trisomy 21) and Trisomy 18, as well as open neural tube defects including spina bifida. Ultrasound examination is performed between 11 weeks and 13 weeks gestational age. Blood tests are drawn after the ultrasound and again later in the between 15 and 21 weeks gestational age. Please let your physician know if you are interested in this testing. It will require an appointment with our tap and die maker technician. This is not an ultrasound performed by a physician in our office during a routine visit. SIGNS AND SYMPTOMS OF LABOR 1. Contractions every 10 minutes or more often 2. Clear, pink, or brownish fluid (water) leaking from vagina 3. Feeling that baby is pushing down, pressure 4. Low, dull backache 5. Cramps that feel like a period 6. Cramps with or without diarrhea If you notice any of the above symptoms, contact our office at [phone] and ask to speak with a nurse. After hours, you can call doctors registry at [phone] OR call [facility] at [phone] and ask to have the doctor production sound mixer paged. If you consider this an emergency, dial 9-1-0 or go to your nearest emergency department. NEED HELP? Are you dealing with a violent or abusive relationship? Are you a victim of rape or sexual assult? Call [facility] ([place]) 24 hour Crisis Hotline: 899.528.5028 or 393-092-6697. MANUAL Your Guide to a Healthy manual is now on-line. Visit [email or web address]/HealthyPre gnancyGuide to download your free copy In person and online childbirth options: 1) [facility] Online Virtual Childbirth and Class. -Please call to register and for more information: [phone] and register for our online classes they are $40 for both or $20 for just the class ?? 2) [facility] Online Childbirth Education, , and [place] classes: [email or web address]://events.[facility] .[email or web address] 3) Here is a list of online childbirth education and resources. [facility] has online childbirth, , and parenting classes. https://events.[facility] .org, type in childbirth https://evidencebaseGeoGraffiti.com /childbirth-class/ https://blissful[employer].in3Dgallery/p/empoweredmamasguide https://mamanaturalbirth.com/ documented in this encounter [facility] 03-20-2023 Miscellaneous Notes Formattin g of this note might be different from the original. Patient notified. Reviewed instructions and also sent a detailed message via [employer] per patient request. Delia Mcdaniel RN Left message for patient to call office. Dottie Hernandez RN ----- Message from Neli Cadet MD sent at 03/20/2023 3:12 PM EST ----- Needs iron for anemia Neli Cadet MD documented in this encounter [facility] 03-19-2023 Note HNO ID: [id number] Author: Ally Solano Ma Service: ? Author Type: ? Type: Progress Notes Filed: 03/19/2023 3:49 PM Note Text: Patient identified by name and date of . Tomer Santos presents today for a vaccination of Tdap. Patient denies an allergy to latex: yes Patient denies a severe (life-threatening) allergy to a previous dose of Tdap, DTP, DTaP, DT or Td vaccine. Yes Patient denies history of epilepsy or neurological problems: Yes Patient is afebrile and denies being moderately or severely ill: Yes Patient denies history of Guillain-[place] Syndrome (a severe paralytic illness): Yes Tdap Adacel injection was given without incident. See immunizations for details of immunizations administered today. VIS sheet provided: Yes Provider Dr Castelan was present in office at time of injection. Ally Solano Ma [facility] 03-19-2023 Miscellaneous Notes Formattin g of this note might be different from the original. RR- VB No. LOF No. CTXS No. Movement: present. Other c/o: No. Medication list reviewed. Physical Exam See Flow Sheet Abd: soft, nontender, gravid Ext: edema: Trace A/P 28w4d Estimated Date of Delivery: 06/07/23 Labs: 28 week labs tdap reviewed, desires this today d/w her birthing classes plans D/w her LARC- likely will choose [facility] Aundrea Castelan M.D. documented in this encounter [facility] 03-19-2023 History of Presen t illness Narrative Patient identified by name and date of . Tomer Santos presents today for a vaccination of Tdap. Patient denies an allergy to latex: yes Patient denies a severe (life-threatening) allergy to a previous dose of Tdap, DTP, DTaP, DT or Td vaccine. Yes Patient denies history of epilepsy or neurological problems: Yes Patient is afebrile and denies being moderately or severely ill: Yes Patient denies history of Guillain-[place] Syndrome (a severe paralytic illness): Yes Tdap Adacel injection was given without incident. See immunizations for details of immunizations administered today. VIS sheet provided: Yes Provider Dr Castelan was present in office at time of injection. Ally Solano Ma documented in this encounter [facility] 03-19-2023 Instructions Ally Solano Ma - 03/19/2023 3:09 PM EST SEQUENTIAL SCREENINGS The [facility] offers sequential screenings for women who are interested in screenings for chromosomal abnormalities and certain defects during a . The sequential screen combines ultrasound and blood tests to determine the risk of chromosomal abnormalities, including Down's Syndrome (Trisomy 21) and Trisomy 18, as well as open neural tube defects including spina bifida. Ultrasound examination is performed between 11 weeks and 13 weeks gestational age. Blood tests are drawn after the ultrasound and again later in the between 15 and 21 weeks gestational age. Please let your physician know if you are interested in this testing. It will require an appointment with our tap and die maker technician. This is not an ultrasound performed by a physician in our office during a routine visit. SIGNS AND SYMPTOMS OF LABOR 1. Contractions every 10 minutes or more often 2. Clear, pink, or brownish fluid (water) leaking from vagina 3. Feeling that baby is pushing down, pressure 4. Low, dull backache 5. Cramps that feel like a period 6. Cramps with or without diarrhea If you notice any of the above symptoms, contact our office at [phone] and ask to speak with a nurse. After hours, you can call doctors registry at [phone] OR call [facility] at [phone] and ask to have the doctor production sound mixer paged. If you consider this an emergency, dial 91-0 or go to your nearest emergency department. NEED HELP? Are you dealing with a violent or abusive relationship? Are you a victim of rape or sexual assult? Call [facility] ([place]) 24 hour Crisis Hotline: 710.214.7256 or 620-827-8187. MANUAL Your Guide to a Healthy manual is now on-line. Visit [facility][email or web address]/HealthyPre gnancyGuide to download your free copy documented in this encounter [facility] 02-20-2023 Miscellaneous Notes Formattin g of this note might be different from the original. KJ - No VB/LOF/ctxs. Reports good FM. Also reports heartburn. A&P: 28wk labs ordered GERD - advised on diet, tums & pepcid Reviewed PTL & FM precautions Neli Cadet MD documented in this encounter [facility] 02-20-2023 Instructions Cheryl Merlos Ma - 02/20/2023 4:05 PM EDT SEQUENTIAL SCREENINGS The [facility] offers sequential screenings for women who are interested in screenings for chromosomal abnormalities and certain defects during a . The sequential screen combines ultrasound and blood tests to determine the risk of chromosomal abnormalities, including Down's Syndrome (Trisomy 21) and Trisomy 18, as well as open neural tube defects including spina bifida. Ultrasound examination is performed between 11 weeks and 13 weeks gestational age. Blood tests are drawn after the ultrasound and again later in the between 15 and 21 weeks gestational age. Please let your physician know if you are interested in this testing. It will require an appointment with our tap and die maker technician. This is not an ultrasound performed by a physician in our office during a routine visit. SIGNS AND SYMPTOMS OF LABOR 1. Contractions every 10 minutes or more often 2. Clear, pink, or brownish fluid (water) leaking from vagina 3. Feeling that baby is pushing down, pressure 4. Low, dull backache 5. Cramps that feel like a period 6. Cramps with or without diarrhea If you notice any of the above symptoms, contact our office at [phone] and ask to speak with a nurse. After hours, you can call doctors registry at [phone] OR call [facility] at [phone] and ask to have the doctor production sound mixer paged. If you consider this an emergency, dial 9-1-1 or go to your nearest emergency department. NEED HELP? Are you dealing with a violent or abusive relationship? Are you a victim of rape or sexual assult? Call [facility] ([place]) 24 hour Crisis Hotline: 157.124.2233 or 196-871-3409. MANUAL Your Guide to a Healthy manual is now on-line. Visit [email or web address]/HealthyPre gnancyGuide to download your free copy documented in this encounter [facility] 02-09-2023 Note HNO ID: [id number] Author: Dottie Hernandez RN Service: ? Author Type: ? Type: Progress Notes Filed: 02/09/2023 9:32 AM Note Text: Order signed and faxed. Dottie Hernandez RN [facility] 02-08-2023 Note HNO ID: [id number] Author: Delia Mcdaniel RN Service: ? Author Type: ? Type: Progress Notes Filed: 02/08/2023 2:31 PM Note Text: Received breast pump order from [employer]. To FRANCISCA to sign. Delia Mcdaniel RN [facility] 02-08-2023 History of Presen t illness Narrative Received breast pump order from [employer]. To KJ to sign. Delia Mcdaniel RN documented in this encounter [facility] 01-30-2023 Miscellaneous Notes Formattin g of this note might be different from the original. KJ - Patient seen urgently for intermittent RLQ pain that is currently very dull. Also some LBP. Had some nausea (resolved) but no emesis. Tolerating PO well. Denies dysuria or fevers/chills. No VB/LOF/ctxs. Reports good FM. Abd - gravid, soft, NT A&P: RLQ & back pain in - suspect musculoskeletal. Patient advised on conservative measurs. Check UA & urine culture. Patient to call with worsened or increased pain. Neli Cadet MD documented in this encounter [facility] 01-30-2023 Instructions Cheryl Merlos Ma - 01/30/2023 2:20 PM EDT SEQUENTIAL SCREENINGS The [facility] offers sequential screenings for women who are interested in screenings for chromosomal abnormalities and certain defects during a . The sequential screen combines ultrasound and blood tests to determine the risk of chromosomal abnormalities, including Down's Syndrome (Trisomy 21) and Trisomy 18, as well as open neural tube defects including spina bifida. Ultrasound examination is performed between 11 weeks and 13 weeks gestational age. Blood tests are drawn after the ultrasound and again later in the between 15 and 21 weeks gestational age. Please let your physician know if you are interested in this testing. It will require an appointment with our tap and die maker technician. This is not an ultrasound performed by a physician in our office during a routine visit. SIGNS AND SYMPTOMS OF LABOR 1. Contractions every 10 minutes or more often 2. Clear, pink, or brownish fluid (water) leaking from vagina 3. Feeling that baby is pushing down, pressure 4. Low, dull backache 5. Cramps that feel like a period 6. Cramps with or without diarrhea If you notice any of the above symptoms, contact our office at [phone] and ask to speak with a nurse. After hours, you can call doctors registry at [phone] OR call [facility] at [phone] and ask to have the doctor production sound mixer paged. If you consider this an emergency, dial 9-7 or go to your nearest emergency department. NEED HELP? Are you dealing with a violent or abusive relationship? Are you a victim of rape or sexual assult? Call [facility] ([place]) 24 hour Crisis Hotline: 336.473.8224 or 095-975-8100. MANUAL Your Guide to a Healthy manual is now on-line. Visit [email or web address]/HealthyPre gnancyGuide to download your free copy documented in this encounter [facility] 01-29-2023 Miscellaneous Notes Formattin g of this note might be different from the original. Spoke with pt and she is going to try taking Tylenol and a warm bath. If pain becomes worse pt will call the office. Cara Walters LPN Agree with tylenol PRN and rest and hydrate today Recommend coming in to be seen with severe persistent pain or if she has other GI, , or OB complaints 21w4d Patient calling with c/o right sided pelvic pain that began today. Dull ache while sitting and relaxing. Pain rate of 4. When she urinated it was sharp and 7-8 out of 10. Denies dysuria, urinary frequency, or difficulty emptying her bladder. Denies VB or LOF. Discussed round ligament pain. Advised to try soaking in a warm bath, stretches, and Tylenol PRN. Please advise. Delia Mcdaniel RN documented in this encounter [facility] 01-23-2023 Miscellaneous Notes Formattin g of this note might be different from the original. KJ - No VB/LOF/ctxs. Reports FM. A&P: Anatomy US reviewed Neli Cadet MD documented in this encounter [facility] 01-23-2023 Instructions s Cheryl Stokes - 01/23/2023 3:45 PM EDT SEQUENTIAL SCREENINGS The [facility] offers sequential screenings for women who are interested in screenings for chromosomal abnormalities and certain defects during a . The sequential screen combines ultrasound and blood tests to determine the risk of chromosomal abnormalities, including Down's Syndrome (Trisomy 21) and Trisomy 18, as well as open neural tube defects including spina bifida. Ultrasound examination is performed between 11 weeks and 13 weeks gestational age. Blood tests are drawn after the ultrasound and again later in the between 15 and 21 weeks gestational age. Please let your physician know if you are interested in this testing. It will require an appointment with our tap and die maker technician. This is not an ultrasound performed by a physician in our office during a routine visit. SIGNS AND SYMPTOMS OF LABOR 1. Contractions every 10 minutes or more often 2. Clear, pink, or brownish fluid (water) leaking from vagina 3. Feeling that baby is pushing down, pressure 4. Low, dull backache 5. Cramps that feel like a period 6. Cramps with or without diarrhea If you notice any of the above symptoms, contact our office at [phone] and ask to speak with a nurse. After hours, you can call [facility] at [phone] OR call [facility] at [phone] and ask to have the doctor production sound mixer paged. If you consider this an emergency, dial 9-1-1 or go to your nearest emergency department. NEED HELP? Are you dealing with a violent or abusive relationship? Are you a victim of rape or sexual assult? Call [facility] ([place]) 24 hour Crisis Hotline: 498.790.3899 or 384-451-7180. MANUAL Your Guide to a Healthy manual is now on-line. Visit [email or web address]/HealthyPre gnancyGuide to download your free copy documented in this encounter [facility] 12-21-2022 Miscellaneous Notes Formattin g of this note might be different from the original. Tomer Santos is a 27 year old female who presents at 16w0d for a routine visit. Thinks she started feeling occasional movement. C/O daily headaches. Not taking any medications for relief. Reviewed appropriate medications to take. May try chiropractor. Had vision checked and was normal. Unsure if headaches are migraines. Denies chest pain, shortness of breath, vaginal bleeding, leakage of fluid, or dysuria. Feeling well, no complaints. PTL / Bleeding precautions reviewed. RTC in 3 weeks for anatomy US and JOVANNY. May need consult to headache clinic placed. Kayla Duran APRN.CNM documented in this encounter [facility] 12-21-2022 Instructions Kayla Duran APRN.CNM - 12/21/2022 10:58 AM EDT Tylenol extra strength 1000 mg PO every 6-8 hours Excedrin Migraine- not together with Tylenol Zyrtec 10 mg Magnesium citrate SEQUENTIAL SCREENINGS The [facility] offers sequential screenings for women who are interested in screenings for chromosomal abnormalities and certain defects during a . The sequential screen combines ultrasound and blood tests to determine the risk of chromosomal abnormalities, including Down's Syndrome (Trisomy 21) and Trisomy 18, as well as open neural tube defects including spina bifida. Ultrasound examination is performed between 11 weeks and 13 weeks gestational age. Blood tests are drawn after the ultrasound and again later in the between 15 and 21 weeks gestational age. Please let your physician know if you are interested in this testing. It will require an appointment with our tap and die maker technician. This is not an ultrasound performed by a physician in our office during a routine visit. SIGNS AND SYMPTOMS OF LABOR 1. Contractions every 10 minutes or more often 2. Clear, pink, or brownish fluid (water) leaking from vagina 3. Feeling that baby is pushing down, pressure 4. Low, dull backache 5. Cramps that feel like a period 6. Cramps with or without diarrhea If you notice any of the above symptoms, contact our office at [phone] and ask to speak with a nurse. After hours, you can call doctors registry at [phone] OR call [facility] at [phone] and ask to have the doctor production sound mixer paged. If you consider this an emergency, dial 91-5 or go to your nearest emergency department. NEED HELP? Are you dealing with a violent or abusive relationship? Are you a victim of rape or sexual assult? Call [facility] ([place]) 24 hour Crisis Hotline: 375.280.1919 or 329-905-2671. MANUAL Your Guide to a Healthy manual is now on-line. Visit [email or web address]/HealthyPre gnancyGuide to download your free copy documented in this encounter [facility] 11-29-2022 Miscellaneous Notes Formattin g of this note might be different from the original. Needs eye exam. Not OB issue. 12w6d Calling because for the past 1-2 weeks she has had intermittent spots in her vision. No other symptoms at all when they occur. Nothing specific triggers it. Drinking plenty of water. Has not had eye exam in over a year. Advised that she does need to schedule one. Last OB visit was 11/23. Please advise. Can send [employer] message with response. Dottie Hernandez RN documented in this encounter [facility] 11-23-2022 Miscellaneous Notes Formattin g of this note might be different from the original. AG- Pt doing well today. Has brief scant bleeding after SI. Is nauseated most mornings and evenings. Has only vomited 2-3 times. Taking B6 but does not always remember to take it twice a day.Taking in adequate nutrition and fluids. Feels like she has to concentrate more on starting urine flow. Denies urinary frequency, urgency, blood in urine or dysuria. Occasional sharp cramps with sudden movements to right or left pelvis. RTO 4 weeks. Elina Stinson APRN.SCREEN AND CYCLONE REPAIRER documented in this encounter [facility] 11-23-2022 Instructions Devorah Carrlol Ma - 11/23/2022 3:47 PM EDT SEQUENTIAL SCREENINGS The [facility] offers sequential screenings for women who are interested in screenings for chromosomal abnormalities and certain defects during a . The sequential screen combines ultrasound and blood tests to determine the risk of chromosomal abnormalities, including Down's Syndrome (Trisomy 21) and Trisomy 18, as well as open neural tube defects including spina bifida. Ultrasound examination is performed between 11 weeks and 13 weeks gestational age. Blood tests are drawn after the ultrasound and again later in the between 15 and 21 weeks gestational age. Please let your physician know if you are interested in this testing. It will require an appointment with our tap and die maker technician. This is not an ultrasound performed by a physician in our office during a routine visit. SIGNS AND SYMPTOMS OF LABOR 1. Contractions every 10 minutes or more often 2. Clear, pink, or brownish fluid (water) leaking from vagina 3. Feeling that baby is pushing down, pressure 4. Low, dull backache 5. Cramps that feel like a period 6. Cramps with or without diarrhea If you notice any of the above symptoms, contact our office at [phone] and ask to speak with a nurse. After hours, you can call [facility] at [phone] OR call [facility] at [phone] and ask to have the doctor production sound mixer paged. If you consider this an emergency, dial -- or go to your nearest emergency department. NEED HELP? Are you dealing with a violent or abusive relationship? Are you a victim of rape or sexual assult? Call [facility] ([place]) 24 hour Crisis Hotline: 674.357.2253 or 411-900-3952. MANUAL Your Guide to a Healthy manual is now on-line. Visit the [email or web address] to download your free copy documented in this encounter [facility] 11-06-2022 Miscellaneous Notes Formattin g of this note might be different from the original. filed Request received from pharmacy for 90 day Rx of Vitamin B6. Patient 9w4d, last seen 10/26. Indira Fernandes RN documented in this encounter [facility] 10-26-2022 Note HNO ID: [id number] Author: Kristan Jackson MD Service: ? Author Type: Physician Type: Progress Notes Filed: 10/26/2022 3:43 PM Note Text: Way Inspector offered: Patient declines. INITIAL OB ASSESSMENT OB Provider: Kristan Jackson DO HPI: Tomer is a 26 year old White here to establish Obstetrical Care. Patient's last menstrual period was 08/31/2022 (exact date). from OB Dating Form. Cycles regular was planned Complaints: nausea OB History T0 L0 SAB0 IAB0 Ectopic0 Multiple0 Live Births0 Patient's Risk Screening for delivery: MEDICAL/PSYCHOSOCIAL HISTORY: History of hemorrhage or bleeding concerns: No Thyroid Disease: No History of chronic hypertension: No History of pre-existing diabetes: No No results found for: ABORHD BMI 26.16 kg/(m2) History of abnormal pap: No Prior treatment for cervical dysplasia: none. History of STDs: None Tobacco use: No Caffeine use: No Drug use: No Alcohol use: No Multivitamin with Folic acid: Yes Congregational or heritage: No Would refuse blood transfusion if medically necessary: No Are you currently employed? 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 I don't have enough money to pay my bills: Never Within the past 12 months, have you worried that your food would run out before you had money to buy more: Never In the past 12 months, has lack of reliable transportation kept you from going to medical appointments or work, or from keeping things needed for daily living: Never In the past 12 months, have you had any concerns about having a place to live, or about the condition or quality of your housing: Never Are there any cultural or spiritual needs we should be aware of: No Over the past two weeks have you felt down, depressed, or hopeless: Negative Over the past two weeks have you felt little interest or pleasure in doing things: Negative GENETIC SCREENING: Partner present: Yes Patient verbalized knowledge of partner family health history: Yes Do you or your partner have any personal or family history of defects not previously discussed: No Do you have history of a complicated by anomaly, genetic condition, or demise: No Marital Status: Partner: Name: Nader PAST MEDICAL HISTORY Diagnosis Date Anemia Anorexia nervosa 2360-7961 PMDD (premenstrual dysphoric disorder) PAST SURGICAL HISTORY Procedure Laterality Date NONE Current Outpatient Medications Medication Sig Dispense Refill prental multivitamin 27 mg iron- 800 mcg tablet Take 1 tablet by mouth once daily. No current facility-administered medications for this visit. Allergies As of Date: 10/26/2022 Allergen Noted Reaction MORPHINE 06/23/2022 Itching, Rash, and Swelling Fully Assessed 10/26/2022 Does patient have penicillin allergy: No REVIEW OF SYSTEMS: GENERAL: Negative for: Fever or Chills HEENT: Negative for: Headache, Impaired Vision, Ringing in Ears, Nosebleeds NECK: Negative for: Swelling, Pain, Stiffness RESPIRATORY: Negative for: Cough, Shortness of breath, Wheezing GASTROINTESTINAL: Negative for: Heartburn, Constipation, Diarrhea, Blood in stool, Vomiting MUSCULOSKELETAL: Negative for: Muscle or joint pain, stiffness, Joint swelling NEUROLOGIC/PSYCHIATRIC: Negative for: Weakness, Paralysis, Numbness, Tingling, Tremor, Anxiety, Depression, Memory loss SKIN: Negative for: Rash, Itching GENITOURINARY: Negative for: vaginal itching, vaginal discharge, hematuria or dysuria PHYSICAL EXAM: BP 110/70 Ht 5' 7 (1.70m) Wt 167 lb (75.8kg) LMP 08/31/2022 BMI 26.15 kg/(m2). GENERAL: pleasant in no apparent distress DERMATOLOGY: Normal, without lesions, non-icteric, and non-hirsute NECK: full range of motion CHEST: Normal inspiratory effort BREAST: soft, non-tender, symmetric, no dominant mass, normal nipple-areolar complex, no lymphadenopathy, and no nipple discharge ABDOMEN: soft, non-tender, and no masses NEURO: exam grossly non-focal PELVIS: External genitalia normal without lesions. Perineal body intact. No vaginal or cervical lesions. Cervix closed. Uterus 8 week size. No adnexal masses or tenderness. Clinical Pelvimetry: Pelvimetry clinically assessed as adequate Limited OB ultrasound exam: single intrauterine , positive cardiac activity, and crown-rump length 7w4d OB Risk Screening: Completed, no positive findings documented. ASSESSMENT: 26 year old at 8w0d wks gestational age PLAN: 1) Patient oriented to practice. Patient given new OB orientation folder. Discussed nutrition, folic acid supplementation, dietary gu (more content not included)... [facility] 10-26-2022 History of Presen t illness Narrative Way Inspector offered: Patient declines. INITIAL OB ASSESSMENT OB Provider: Kristan Jackson DO HPI: Tomer is a 26 year old White here to establish Obstetrical Care. Patient's last menstrual period was 08/31/2022 (exact date). from OB Dating Form. Cycles regular was planned Complaints: nausea OB History T0 L0 SAB0 IAB0 Ectopic0 Multiple0 Live Births0 Patient's Risk Screening for delivery: MEDICAL/PSYCHOSOCIAL HISTORY: History of hemorrhage or bleeding concerns: No Thyroid Disease: No History of chronic hypertension: No History of pre-existing diabetes: No No results found for: ABORHD BMI 26.16 kg/(m^2) History of abnormal pap: No Prior treatment for cervical dysplasia: none. History of STDs: None Tobacco use: No Caffeine use: No Drug use: No Alcohol use: No Multivitamin with Folic acid: Yes Congregational or heritage: No Would refuse blood transfusion if medically necessary: No Are you currently employed? 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 I don't have enough money to pay my bills: Never Within the past 12 months, have you worried that your food would run out before you had money to buy more: Never In the past 12 months, has lack of reliable transportation kept you from going to medical appointments or work, or from keeping things needed for daily living: Never In the past 12 months, have you had any concerns about having a place to live, or about the condition or quality of your housing: Never Are there any cultural or spiritual needs we should be aware of: No Over the past two weeks have you felt down, depressed, or hopeless: Negative Over the past two weeks have you felt little interest or pleasure in doing things: Negative GENETIC SCREENING: Partner present: Yes Patient verbalized knowledge of partner family health history: Yes Do you or your partner have any personal or family history of defects not previously discussed: No Do you have history of a complicated by anomaly, genetic condition, or demise: No Marital Status: Partner: Name: Nader PAST MEDICAL HISTORY Diagnosis Date Anemia Anorexia nervosa 9587-2677 PMDD (premenstrual dysphoric disorder) PAST SURGICAL HISTORY Procedure Laterality Date NONE Current Outpatient Medications Medication Sig Dispense Refill prental multivitamin 27 mg iron- 800 mcg tablet Take 1 tablet by mouth once daily. No current facility-administered medications for this visit. Allergies As of Date: 10/26/2022 Allergen Noted Reaction MORPHINE 06/23/2022 Itching, Rash, and Swelling Fully Assessed 10/26/2022 Does patient have penicillin allergy: No REVIEW OF SYSTEMS: GENERAL: Negative for: Fever or Chills HEENT: Negative for: Headache, Impaired Vision, Ringing in Ears, Nosebleeds NECK: Negative for: Swelling, Pain, Stiffness RESPIRATORY: Negative for: Cough, Shortness of breath, Wheezing GASTROINTESTINAL: Negative for: Heartburn, Constipation, Diarrhea, Blood in stool, Vomiting MUSCULOSKELETAL: Negative for: Muscle or joint pain, stiffness, Joint swelling NEUROLOGIC/PSYCHIATRIC: Negative for: Weakness, Paralysis, Numbness, Tingling, Tremor, Anxiety, Depression, Memory loss SKIN: Negative for: Rash, Itching GENITOURINARY: Negative for: vaginal itching, vaginal discharge, hematuria or dysuria PHYSICAL EXAM: BP 110/70 Ht 5' 7 (1.70m) Wt 167 lb (75.8kg) LMP 08/31/2022 BMI 26.15 kg/(m^2). GENERAL: pleasant in no apparent distress DERMATOLOGY: Normal, without lesions, non-icteric, and non-hirsute NECK: full range of motion CHEST: Normal inspiratory effort BREAST: soft, non-tender, symmetric, no dominant mass, normal nipple-areolar complex, no lymphadenopathy, and no nipple discharge ABDOMEN: soft, non-tender, and no masses NEURO: exam grossly non-focal PELVIS: External genitalia normal without lesions. Perineal body intact. No vaginal or cervical lesions. Cervix closed. Uterus 8 week size. No adnexal masses or tenderness. Clinical Pelvimetry: Pelvimetry clinically assessed as adequate Limited OB ultrasound exam: single intrauterine , positive cardiac activity, and crown-rump length 7w4d OB Risk Screening: Completed, no positive findings documented. ASSESSMENT: 26 year old at 8w0d wks gestational age PLAN: 1) Patient oriented to practice. Patient given new OB orientation folder. Discussed nutrition, folic acid supplementation, dietary guidelines, exercise, smoking, alcohol, caffeine, and drug use. Discussed gestational weight gain guidelines. Discussed routine OB labs including STD/HIV. Discussed how to access Your guide to a health and the Tangled Yarn Worker. OB Community care order placed. Discussed aneuploidy and carrier screening. Regarding aneuploidy screening, nuchal translucency/first trimester early anatomy ultrasound and NIPT were discussed. Regarding carrier screening, the myriad screen was discussed. The risks/benefits and limitations of NIPT/aneuploidy screening were reviewed including the potential for false negative and false positive results. We discussed the availability of professional-society guided carrier screening and reviewed the conditions screened and limitations of screening. The availability of genetic counseling was reviewed. Information on aneuploidy/carrier screening was provided. The patient chooses: Aneuploidy screening: declines screening and Carrier screening: Declines Follow up in 4 weeks or sooner prn. Kristan Jackson DO documented in this encounter [facility] 10-26-2022 Instructions Mathieu Mosqueda MA - 10/26/2022 2:48 PM EDT Please select the following link to access the [facility] Your Guide to a Healthy . [email or web address] donte documented in this encounter [facility] 10-12-2022 Miscellaneous Notes Formattin g of this note might be different from the original. DISTANCE HEALTH VISIT This Team Access Model visit is a phone encounter. It required patient-provider interaction for the medical decision making as documented below. Patient states she has a history of anorexia from 20 12- that was treated on an outpatient basis. Patient's 's brother born with a heart issue. Had to have a pacemaker as an . Patient is unsure of the details but will provide them at the new OB visit. Patient desires aneuploidy screening. Contact information for [facility] given to patient to check on insurance coverage. Patient declined genetic carrier screening testing.Chuyita Peng RN documented in this encounter [facility] 09-11-2022 Note HNO ID: [id number] Author: Beba Spaulding APRN.SCREEN AND CYCLONE REPAIRER Service: ? Author Type: Nurse Practitioner Type: Progress Notes Filed: 09/12/2022 10:25 AM Note Text: Tomer Santos is a 26 year old female who presents for problem visit pelvic pain for 5 month(s). HPI: she stopped OCP in April. Since then she is having spotting b/t period, cycle 26-28, flow 7 days. Increase in acne and increase with cycle cramping and in between period. Cramping and bleeding after intercourse. OB History T0 L0 SAB0 IAB0 Ectopic0 Multiple0 Live Births0 Pigment Making Supervisor History LMP: 08/31/2022, Having periods Age at Menarche: Age at First : Age at Menopause: Pigment Making Supervisor History Comments: Sexual Activity: No sexual activity data on record; No partner data on record Contraception: No contraception data on record PAST MEDICAL HISTORY Diagnosis Date PMDD (premenstrual dysphoric disorder) PAST SURGICAL HISTORY Procedure Laterality Date NONE No family history on file. Social History Tobacco Use Smoking status: Never Smokeless tobacco: Never Vaping Use Vaping Use: Never used Substance Use Topics Alcohol use: Yes Drug use: Never No current outpatient medications on file. No current facility-administered medications for this visit. Allergies As of Date: 09/11/2022 Allergen Noted Reaction MORPHINE 06/23/2022 Itching, Rash, and Swelling Fully Assessed 09/11/2022 REVIEW OF SYSTEMS Abdomen: SEE HPI Bladder: No dysuria, gross hematuria, urinary frequency, urinary urgency, or incontinence. Expanded ROS: N/A Allergies and current medication updated:Yes EXAM: Wt 0 lb (0.0kg) LMP 08/31/2022 GENERAL: pleasant, female in no apparent distress HEENT: Normocephalic, atraumatic, mucus membranes moist, and no lesions CHEST: Normal inspiratory effort NEURO: alert and oriented x3,exam grossly non-focal EXTREMITIES: normal ASSESSMENT/PLAN: 1. Abnormal uterine bleeding (AUB) - ICD9: 626.9, ICD10: N93.9 (primary diagnosis) - TSH BLD - PROLACTIN BLD - TESTOSTERONE, FREE AND TOTAL - DHEA-S BLD - HYDROXYPROGESTERO-17 - FSH BLD - LUTEINIZING HORMONE - ESTRADIOL-17B BLD - PELVIC US WHI - HGB A1C 2. Generalized abdominal cramping - ICD9: 789.07, ICD10: R10.84 - TSH BLD - PROLACTIN BLD - TESTOSTERONE, FREE AND TOTAL - DHEA-S BLD - HYDROXYPROGESTERO-17 - FSH BLD - LUTEINIZING HORMONE - ESTRADIOL-17B BLD - PELVIC US WHI - HGB A1C Will notify pt of results Beba Spaulding APRN.JIMMY Medical Decision Making: Problems: Moderate: New problem with uncertain prognosis Data: Unique test(s) ordered: 3+ Risk: Low: Low risk from testing/treatment Medical Decision Making Level: 4 - Moderate [facility] 09-11-2022 History of Presen t illness Narrative Tomer Santos is a 26 year old female who presents for problem visit pelvic pain for 5 month(s). HPI: she stopped OCP in April. Since then she is having spotting b/t period, cycle 26-28, flow 7 days. Increase in acne and increase with cycle cramping and in between period. Cramping and bleeding after intercourse. OB History T0 L0 SAB0 IAB0 Ectopic0 Multiple0 Live Births0 Pigment Making Supervisor History LMP: 08/31/2022, Having periods Age at Menarche: Age at First : Age at Menopause: Pigment Making Supervisor History Comments: Sexual Activity: No sexual activity data on record; No partner data on record Contraception: No contraception data on record PAST MEDICAL HISTORY Diagnosis Date PMDD (premenstrual dysphoric disorder) PAST SURGICAL HISTORY Procedure Laterality Date NONE No family history on file. Social History Tobacco Use Smoking status: Never Smokeless tobacco: Never Vaping Use Vaping Use: Never used Substance Use Topics Alcohol use: Yes Drug use: Never No current outpatient medications on file. No current facility-administered medications for this visit. Allergies As of Date: 09/11/2022 Allergen Noted Reaction MORPHINE 06/23/2022 Itching, Rash, and Swelling Fully Assessed 09/11/2022 REVIEW OF SYSTEMS Abdomen: SEE HPI Bladder: No dysuria, gross hematuria, urinary frequency, urinary urgency, or incontinence. Expanded ROS: N/A Allergies and current medication updated:Yes EXAM: Wt 0 lb (0.0kg) LMP 08/31/2022 GENERAL: pleasant, female in no apparent distress HEENT: Normocephalic, atraumatic, mucus membranes moist, and no lesions CHEST: Normal inspiratory effort NEURO: alert and oriented x3,exam grossly non-focal EXTREMITIES: normal ASSESSMENT/PLAN: 1. Abnormal uterine bleeding (AUB) - ICD9: 626.9, ICD10: N93.9 (primary diagnosis) - TSH BLD - PROLACTIN BLD - TESTOSTERONE, FREE AND TOTAL - DHEA-S BLD - HYDROXYPROGESTERO-17 - FSH BLD - LUTEINIZING HORMONE - ESTRADIOL-17B BLD - PELVIC US WHI - HGB A1C 2. Generalized abdominal cramping - ICD9: 789.07, ICD10: R10.84 - TSH BLD - PROLACTIN BLD - TESTOSTERONE, FREE AND TOTAL - DHEA-S BLD - HYDROXYPROGESTERO-17 - FSH BLD - LUTEINIZING HORMONE - ESTRADIOL-17B BLD - PELVIC US WHI - HGB A1C Will notify pt of results Beba Spaulding APRN.CNP Medical Decision Making: Problems: Moderate: New problem with uncertain prognosis Data: Unique test(s) ordered: 3+ Risk: Low: Low risk from testing/treatment Medical Decision Making Level: 4 - Moderate documented in this encounter [facility] 06-23-2022 Note HNO ID: [id number] Author: Kristan Jackson MD Service: ? Author Type: Physician Type: Progress Notes Filed: 06/28/2022 7:44 PM Note Text: Way Inspector offered: Patient declines. Tomer is a 26 year old who presents for an annual gynecologic exam with complaints, questions about ovulation . Has PMDD. Interested in . Menses: Was on OCP since 2014 stopped end of 04/2022. 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 No motivation and anxiety around cycles Contraception: none HPV vaccine: Yes Last Pap: no record HPV: no record History of abnormal pap: No Last mammogram: never Sexually active: Yes Patient concerns for STD exposure: No. Time with current partner: 6-7 years, for 1.5 years OB History T0 L0 SAB0 IAB0 Ectopic0 Multiple0 Live Births0 Pigment Making Supervisor History LMP: 06/07/2022, Having periods Age at Menarche: Age at First : Age at Menopause: Pigment Making Supervisor History Comments: Sexual Activity: No sexual activity data on record; No partner data on record Contraception: No contraception data on record PAST MEDICAL HISTORY Diagnosis Date PMDD (premenstrual dysphoric disorder) PAST SURGICAL HISTORY Procedure Laterality Date NONE History reviewed. No pertinent family history.SOCIAL HISTORY Social History Tobacco Use Smoking status: Never Smokeless tobacco: Never Vaping Use Vaping Use: Never used Substance Use Topics Alcohol use: Yes Drug use: Never REVIEW OF SYSTEMS Abdomen: No abdominal pain, nausea, vomiting, diarrhea, or constipation. No bloating, early satiety, indigestion, or increased flatulence. Bladder: No dysuria, gross hematuria, urinary frequency, urinary urgency, or incontinence. Breast: No breast lumps, nipple d/c, overlying skin changes, redness or skin retraction. Allergies and current medication updated:Yes EXAM: BP 110/68 Ht 5' 8 (1.73m) Wt 169 lb (76.7kg) LMP 06/07/2022 BMI 25.70 kg/(m2). GENERAL: pleasant, female in no apparent distress HEENT: Normocephalic, atraumatic, mucus membranes moist, and no lesions NECK: Supple, full range of motion, no adenopathy, and thyroid normal DERMATOLOGY: Normal, without lesions, non-icteric, and non-hirsute BREAST: soft, non-tender, symmetric, no dominant mass, normal nipple-areolar complex, no lymphadenopathy, and no nipple discharge CHEST: Normal inspiratory effort ABDOMEN: soft, non-tender, and no masses PELVIC: external genitalia normal, normal Bartholin's glands, urethra, [place]'s glands, no vulvar lesions, no cervical lesions, good vaginal support, physiologic discharge present, normal appearing perineal body and perianal region BIMANUAL: uterus normal size, shape and consistency, no adnexal masses, and non-tender RECTOVAGINAL: deferred. NEURO: exam grossly non-focal EXTREMITIES: normal ASSESSMENT/PLAN: 1) Health maintenance: Pap done with reflex HPV. Nutrition, exercise and routine health maintenance exams reviewed. HPV vaccine: completed series per patient. PMDD: Discussed r/b/a SSRI. Pt considering. Information given on counselors in area as well. New skin lesion reported by patient: Derm referral placed. 2) Contraception: none. Contraceptive options reviewed and information provided. - Pre conception counseling. Cont to track menstrual cycles and discussed reasons to call 3) STD screening: Declined STD check. 4) Follow up one year or sooner as needed Kristan Jackson DO [facility] 06-23-2022 History of Presen t illness Narrative Way Inspector offered: Patient declines. Tomer is a 26 year old who presents for an annual gynecologic exam with complaints, questions about ovulation . Has PMDD. Interested in . Menses: Was on OCP since 2014 stopped end of 04/2022. 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 No motivation and anxiety around cycles Contraception: none HPV vaccine: Yes Last Pap: no record HPV: no record History of abnormal pap: No Last mammogram: never Sexually active: Yes Patient concerns for STD exposure: No. Time with current partner: 6-7 years, for 1.5 years OB History T0 L0 SAB0 IAB0 Ectopic0 Multiple0 Live Births0 Pigment Making Supervisor History LMP: 06/07/2022, Having periods Age at Menarche: Age at First : Age at Menopause: Pigment Making Supervisor History Comments: Sexual Activity: No sexual activity data on record; No partner data on record Contraception: No contraception data on record PAST MEDICAL HISTORY Diagnosis Date PMDD (premenstrual dysphoric disorder) PAST SURGICAL HISTORY Procedure Laterality Date NONE History reviewed. No pertinent family history.SOCIAL HISTORY Social History Tobacco Use Smoking status: Never Smokeless tobacco: Never Vaping Use Vaping Use: Never used Substance Use Topics Alcohol use: Yes Drug use: Never REVIEW OF SYSTEMS Abdomen: No abdominal pain, nausea, vomiting, diarrhea, or constipation. No bloating, early satiety, indigestion, or increased flatulence. Bladder: No dysuria, gross hematuria, urinary frequency, urinary urgency, or incontinence. Breast: No breast lumps, nipple d/c, overlying skin changes, redness or skin retraction. Allergies and current medication updated:Yes EXAM: BP 110/68 Ht 5' 8 (1.73m) Wt 169 lb (76.7kg) LMP 06/07/2022 BMI 25.70 kg/(m^2). GENERAL: pleasant, female in no apparent distress HEENT: Normocephalic, atraumatic, mucus membranes moist, and no lesions NECK: Supple, full range of motion, no adenopathy, and thyroid normal DERMATOLOGY: Normal, without lesions, non-icteric, and non-hirsute BREAST: soft, non-tender, symmetric, no dominant mass, normal nipple-areolar complex, no lymphadenopathy, and no nipple discharge CHEST: Normal inspiratory effort ABDOMEN: soft, non-tender, and no masses PELVIC: external genitalia normal, normal Bartholin's glands, urethra, [place]'s glands, no vulvar lesions, no cervical lesions, good vaginal support, physiologic discharge present, normal appearing perineal body and perianal region BIMANUAL: uterus normal size, shape and consistency, no adnexal masses, and non-tender RECTOVAGINAL: deferred. NEURO: exam grossly non-focal EXTREMITIES: normal ASSESSMENT/PLAN: 1) Health maintenance: Pap done with reflex HPV. Nutrition, exercise and routine health maintenance exams reviewed. HPV vaccine: completed series per patient. PMDD: Discussed r/b/a SSRI. Pt considering. Information given on counselors in area as well. New skin lesion reported by patient: Derm referral placed. 2) Contraception: none. Contraceptive options reviewed and information provided. - Pre conception counseling. Cont to track menstrual cycles and discussed reasons to call 3) STD screening: Declined STD check. 4) Follow up one year or sooner as needed Kristan Jackson DO documented in this encounter [facility] 05-26-2022 Miscellaneous Notes Formattin g of this note might be different from the original. Dr. Cruz looked over chart concerning referral. Referral to Geospatial Technician not appropriate. Note sent to Referring physician (Dr. Dalton) with Dr. Diggs recommendation. 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 Dr. Cruz recommends no F/U is needed unless pt. Has recurrent infections or reactive airway disease or allergy. Then she should be referred to an Sorting Grapple Operator or Beehive Kiln Supervisor. Message also left on pts. Voicemail no appt. Necessary in this office, contact Dr. Dalton office for further instruction. Aracelis Bonilla LPN Summary: NEW PATIENT Received referral and placed in nurse mailbox for review. DX: IGF DEFICIENCY REF PROV: SHANA DALTON INS: NABEELEM documented in this encounter [facility] Diagnosis Abnormal uterine bleeding (AUB)- Primary Generalized abdominal cramping Abdominal pain, generalized [facility] Diagnosis Abnormal uterine bleeding (AUB) Generalized abdominal cramping Abdominal pain, generalized [facility] Diagnosis Supervision of normal first , antepartum- Primary History of anorexia nervosa Personal history of other mental disorder Family history of congenital heart defect Family history of congenital anomalies Patient request for diagnostic testing Other specified examination [facility] Diagnosis Encounter for supervision of normal first in first trimester- Primary Supervision of normal first Nausea and vomiting during Patient request for diagnostic testing Other specified examination [facility] Diagnosis Encounter for supervision of normal first in first trimester Supervision of normal first Nausea and vomiting during [facility] Diagnosis 12 weeks gestation of - Primary state, incidental [facility] Diagnosis 16 weeks gestation of - Primary state, incidental Encounter for supervision of normal first in first trimester Supervision of normal first [facility] Diagnosis Encounter for anatomic survey- Primary Encounter for supervision of normal first in first trimester Supervision of normal first 19 weeks gestation of state, incidental [facility] Diagnosis Supervision of normal first , antepartum- Primary 20 weeks gestation of state, incidental [facility] Diagnosis Encounter for supervision of normal first in second trimester- Primary Supervision of normal first 21 weeks gestation of state, incidental RLQ abdominal pain Abdominal pain, right lower quadrant [facility] Diagnosis Encounter for supervision of normal first in second trimester- Primary Supervision of normal first 24 weeks gestation of state, incidental [facility]* Diagnosis 28 weeks gestation of - Primary state, incidental Encounter for supervision of normal first in third trimester Supervision of normal first Need for vaccination Need for prophylactic vaccination and inoculation against unspecified single disease [facility] Diagnosis 30 weeks gestation of - Primary state, incidental Encounter for supervision of normal first in third trimester Supervision of normal first Need for influenza vaccination Need for prophylactic vaccination and inoculation against influenza [facility] Diagnosis Anemia during in third trimester- Primary Encounter for supervision of normal first in third trimester Supervision of normal first 32 weeks gestation of state, incidental [facility] Diagnosis 34 weeks gestation of - Primary state, incidental Encounter for supervision of normal first in third trimester Supervision of normal first Need for vaccination Need for prophylactic vaccination and inoculation against unspecified single disease documented in this encounter [facility] for referral (narrative)* Diagnostic Procedure Only (Routine) - Open Specialty Diagnoses / Procedures Referred By Eneida rose Referred To Contact [facility] Diagnoses Abnormal uterine bleeding (AUB) Generalized abdominal cramping Procedures PELVIC US WHI US PELVIC NONOBSTETRIC REAL-TIME IMAGE COMPLETE Beba Spaulding APRN.CNP [address] [place] [address] [facility] [address] [place] [address] Referral ID Status Reason Start Date Expiration Date V isits Requested Visits Authorized [id number] Open Auto-Generate d Referral 09/11/2022 09/11/2023 1 1 [facility] for referral (narrative)* Diagnostic Procedure Only (Routine) - Pending Review Specialty Diagnoses / Procedures Referred By Eneida rose Referred To Contact [facility] Diagnoses 16 weeks gestation of Encounter for supervision of normal first in first trimester Procedures OBSTETRIC ULTRASOUND WHI US PREG UTERUS AFTER 1ST TRIMEST GESTATION Kayla Duran APRN.CNM [address] [place] [address] [facility] [address] [place] [address] Referral ID Status Reason Start Date Expiration Date Visits Requested Visits Authorized [id number] Pending Review Auto-Generat ed Referral 12/21/2022 12/21/2023 1 1 [facility] Summary Purpose Family History No Family History Records FoundNo Family History Records FoundNo Family History Records Found Advance Directives No Advanced Directives Records FoundNo Advanced Directives Records FoundNo Advanced Directives Records Found Reason for Referral Specialty Diagnoses / Procedures Referred By Eneida rose Referred To Contact Dermatology Diagnoses Skin lesion Procedures CONSULT TO DERMATOLOGY Kristan Jackson MD [address] [place] [address] Referral ID Status Reason Start Date Expiration Date Visits Requested Visits Authorized [id number] Ref Not Required PCP Requested Referral 06/23/2022 06/23/2023 1 1 Health Concerns Problem Noted Date [facility] - [facility] 10/12 Education - [place] 10/26/2022 Problem Noted Date [facility] - [facility] 10/12 Education - [place] 10/26/2022 Problem Noted Date Diagnosed Date [facility] - [facility] 10/26/2022 Education - [place] 10/26/2022 Problem Noted Date Diagnosed Date [facility] - [facility] 10/26/2022 Education - [place] 10/26/2022 Problem Noted Date Diagnosed Date [facility] - [facility] 10/26/2022 Education - [place] 10/26/2022 Problem Noted Date Diagnosed Date [facility] - [facility] 10/26/2022 Education - [place] 10/26/2022 Problem Noted Date Diagnosed Date [facility] - [facility] 10/26/2022 Education - [place] 10/26/2022 Problem Noted Date Diagnosed Date [facility] - [facility] 10/26/2022 Education - [place] 10/26/2022 Problem Noted Date Diagnosed Date [facility] - [facility] 10/26/2022 Education - [place] 10/26/2022 Problem Noted Date Diagnosed Date [facility] - [facility] 10/26/2022 Education - [place] 10/26/2022 Additional Source Comments INFORMATION SOURCE (unrecogn ized section and content) DATE CREATED AUTHOR AUTHOR'S ORGANIZ ATION 06/21/2021 [facility] DATE CREATED AUTHOR AUTHOR'S ORGANIZ ATION 06/07/2023 [facility] Source Comments (unrecognize d section and content) In the event this informatio n is protected by the Federal Confidentiality of Alcohol and Drug Abuse Patient Records regulations: The Federal rules restrict any use of the information to criminally investigate or prosecute any alcohol or drug abuse patient.[facility] the event this information is protected by the Federal Confidentiality of Alcohol and Drug Abuse Patient Records regulations: The Federal rules restrict any use of the information to criminally investigate or prosecute any alcohol or drug abuse patient.[facility] the event this information is protected by the Federal Confidentiality of Alcohol and Drug Abuse Patient Records regulations: The Federal rules restrict any use of the information to criminally investigate or prosecute any alcohol or drug abuse patient.[facility] the event this information is protected by the Federal Confidentiality of Alcohol and Drug Abuse Patient Records regulations: The Federal rules restrict any use of the information to criminally investigate or prosecute any alcohol or drug abuse patient.[facility] the event this information is protected by the Federal Confidentiality of Alcohol and Drug Abuse Patient Records regulations: The Federal rules restrict any use of the information to criminally investigate or prosecute any alcohol or drug abuse patient.[facility] the event this information is protected by the Federal Confidentiality of Alcohol and Drug Abuse Patient Records regulations: The Federal rules restrict any use of the information to criminally investigate or prosecute any alcohol or drug abuse patient.[facility] the event this information is protected by the Federal Confidentiality of Alcohol and Drug Abuse Patient Records regulations: The Federal rules restrict any use of the information to criminally investigate or prosecute any alcohol or drug abuse patient.[facility] the event this information is protected by the Federal Confidentiality of Alcohol and Drug Abuse Patient Records regulations: The Federal rules restrict any use of the information to criminally investigate or prosecute any alcohol or drug abuse patient.[facility] the event this information is protected by the Federal Confidentiality of Alcohol and Drug Abuse Patient Records regulations: The Federal rules restrict any use of the information to criminally investigate or prosecute any alcohol or drug abuse patient.[facility] the event this information is protected by the Federal Confidentiality of Alcohol and Drug Abuse Patient Records regulations: The Federal rules restrict any use of the information to criminally investigate or prosecute any alcohol or drug abuse patient.[facility] the event this information is protected by the Federal Confidentiality of Alcohol and Drug Abuse Patient Records regulations: The Federal rules restrict any use of the information to criminally investigate or prosecute any alcohol or drug abuse patient.[facility] the event this information is protected by the Federal Confidentiality of Alcohol and Drug Abuse Patient Records regulations: The Federal rules restrict any use of the information to criminally investigate or prosecute any alcohol or drug abuse patient.[facility] the event this information is protected by the Federal Confidentiality of Alcohol and Drug Abuse Patient Records regulations: The Federal rules restrict any use of the information to criminally investigate or prosecute any alcohol or drug abuse patient.[facility] the event this information is protected by the Federal Confidentiality of Alcohol and Drug Abuse Patient Records regulations: The Federal rules restrict any use of the information to criminally investigate or prosecute any alcohol or drug abuse patient.[facility] the event this information is protected by the Federal Confidentiality of Alcohol and Drug Abuse Patient Records regulations: The Federal rules restrict any use of the information to criminally investigate or prosecute any alcohol or drug abuse patient.[facility] the event this information is protected by the Federal Confidentiality of Alcohol and Drug Abuse Patient Records regulations: The Federal rules restrict any use of the information to criminally investigate or prosecute any alcohol or drug abuse patient.[facility] the event this information is protected by the Federal Confidentiality of Alcohol and Drug Abuse Patient Records regulations: The Federal rules restrict any use of the information to criminally investigate or prosecute any alcohol or drug abuse patient.[facility] the event this information is protected by the Federal Confidentiality of Alcohol and Drug Abuse Patient Records regulations: The Federal rules restrict any use of the information to criminally investigate or prosecute any alcohol or drug abuse patient.[facility] the event this information is protected by the Federal Confidentiality of Alcohol and Drug Abuse Patient Records regulations: The Federal rules restrict any use of the information to criminally investigate or prosecute any alcohol or drug abuse patient.[facility] the event this information is protected by the Federal Confidentiality of Alcohol and Drug Abuse Patient Records regulations: The Federal rules restrict any use of the information to criminally investigate or prosecute any alcohol or drug abuse patient.[facility] the event this information is protected by the Federal Confidentiality of Alcohol and Drug Abuse Patient Records regulations: The Federal rules restrict any use of the information to criminally investigate or prosecute any alcohol or drug abuse patient.[facility] the event this information is protected by the Federal Confidentiality of Alcohol and Drug Abuse Patient Records regulations: The Federal rules restrict any use of the information to criminally investigate or prosecute any alcohol or drug abuse patient.[facility] the event this information is protected by the Federal Confidentiality of Alcohol and Drug Abuse Patient Records regulations: The Federal rules restrict any use of the information to criminally investigate or prosecute any alcohol or drug abuse patient.[facility] Center[facility] the event this information is protected by the Federal Confidentiality of Alcohol and Drug Abuse Patient Records regulations: The Federal rules restrict any use of the information to criminally investigate or prosecute any alcohol or drug abuse patient.[facility] Reason for Visit (unrecogniz ed section and content) Reason Comments Yearly Exam Reason Comments Irregular Menstrual Cycle 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 Specialty Diagnoses / Procedures Referred By Contac t Referred To Contact [facility] Diagnoses Abnormal uterine bleeding (AUB) Generalized abdominal cramping Procedures PELVIC US WHI US PELVIC NONOBSTETRIC REAL-TIME IMAGE COMPLETE Beba Spaulding APRN.SCREEN AND CYCLONE REPAIRER [address] [place] [address] [facility] [address] [place] [address] Referral ID Status Reason Start Date Expiration Date V isits Requested Visits Authorized [id number] Closed Auto-Generate d Referral 09/14/2022 05/13/2023 1 1 Reason Comments Care Reason Comments Med Change Request Reason Onset Date Comments Care 11/23/2022 Reason Comments Question (OB Question) Reason Onset Date Comments Care 12/21/2022 Reason Comments US Specialty Diagnoses / Procedures Referred By Contac t Referred To Contact [facility] Diagnoses 16 weeks gestation of Encounter for supervision of normal first in first trimester Procedures OBSTETRIC ULTRASOUND WHI US PREG UTERUS AFTER 1ST TRIMEST GESTATION Kayla Duran APRN.CNM [address] [place] [address] [facility] [address] [place] [address] Referral ID Status Reason Start Date Expiration Date Visits Requested Visits Authorized [id number] Authorized Auto-Generat ed Referral 01/02/2023 05/13/2023 20 20 Reason Onset Date Comments Care 01/23/2023 Reason Comments OB Pain Reason Onset Date Comments Care 01/30/2023 Reason Comments Breast Pump Reason Onset Date Comments Care 02/20/2023 Reason Onset Date Comments Care 03/19/2023 Reason Comments Results Reason Onset Date Comments Care 04/02/2023 Immunizations 04/02/2023 Flu vaccination Reason Comments Clinical Update Reason Comments OB - + COVID Reason Onset Date Comments Care 04/16/2023 Reason Onset Date Comments Care 05/02/2023 FOR RECORDS PERTAINING TO PATIENTS WHO ARE OR HAVE BEEN ENROLLED IN A CHEMICAL DEPENDENCY/SUBSTANCEABUSE PROGRAM, SOME INFORMATION MAY BE OMITTED. This clinical summary was aggregated from multiple sources. Caution should be exercised in using it in the provision of clinical care. This summary normalizes information from multiple sources, and as a consequence, information in this document may materially change the coding, format and clinical context of patient data. In addition, data may be omitted in some cases. CLINICAL DECISIONS SHOULD BE BASED ON THE PRIMARY CLINICAL RECORDS. [facility] [employer] provides no warranty or guarantee of the accuracy or completeness of information in this document.
[2023-06-09 00:54] LABS: Absolute Lymphocyte Count 4.09 X10^3/uL (0.83-4.51); Absolute Neutrophil Count 8.9 X10^3/uL (2.0-7.7); Basophil# 0.08 X10^3/uL; Basophil% 0.5 % (0-1); Eosinophil# 0.09 X10^3/uL; Eosinophils% 0.6 % (0-5); Hematocrit 30.5 % (37-47); Hemoglobin 10.1 g/dL (12.0-15.0); Lymphocyte # 4.09 X10^3/ul (0.83-4.51); Mean Corp Hgb Conc 33.1 g/dL (32-36); Mean Corpuscular Hgb 27.3 pg (27.0-32.0); Mean Corpuscular Volume 82.4 fL (81-99); Mean Platelet Vol. 11.5 fl (6.2-12.0); Monocyte# 1.35 X10^3/uL; Monocyte% 9.2 % (0-10); NRBC Flagged by Analyzer 0 % (0-5); Neutrophil # 8.89 X10^3/uL (2.7-7.7); Neutrophil % 60.8 % (47-70); POSITIVE MORPHOLOGY YES; Platelet Count 209 K/mm3 (150-450); RBC Distribution Width CV 13.1 % (11.6-14.6); RBC Distribution Width SD 38.9 fl (35.1-43.9); White Blood Count 14.6 K/mm3 (4.4-11.0)
[2023-06-09 01:03] LABS: Differential Indicated SCAN CRITERIA MET
[2023-06-09] MEDS: Lactated Ringers 1,000 ML 200 ML IV (01:10)
[2023-06-09] MEDS: fentaNYL-bupivacaine (epidural) 100 ML BAG EPIDURAL (01:23)
[2023-06-09 02:26] LABS: Syphilis Antibodies Non-reactive
[2023-06-09 02:37] LABS: Atypical Lymphocyte 1+ %
[2023-06-09] MEDS: Oxytocin 10 UNITS/ML Vial IM (04:04)
[2023-06-09] MEDS: Oxytocin 15 Units/NS 250ml 15 UNITS/250 ML IV.SOLN 83 UNITS IV (04:10)
[2023-06-09] MEDS: Methylergonovine 0.2 MG/ML Ampul 0.200000000000000011 MG IM (04:11)
--- NOTE | 2023-06-09 04:32 | EX.PCM.OBRPT ---
Assessment & Plan (1) Vaginal delivery: (2) First degree perineal laceration: Maternal Data Information JESSICA Calculator Estimated Delivery Date Method Current WG Current Estimate 06/07/23 Manual 40w 2d Vaginal Delivery Maternal Presentation Maternal Presentation: Active Labor and Spontaneous Rupture of Membranes Operative Information Date of Procedure: 06/09/23 Pre-Operative Diagnosis: Active labor at term, SROM Post-Operative Diagnosis: , first degree perineal laceration Surgery / Procedure Performed: Spontaneous Vaginal Delivery Type of Anesthesia: Epidural Estimated Blood Loss: 500 ml Time of Delivery: 04:02 Findings Description of Procedure: Progressed to complete with urge to push. Epidural for pain management. of viable male infant over first degree perineal laceration. APGARS 9,9 respectively. Infant head delivered with body immediately forthcoming. Placed on maternal abdomen, strong cry. Mouth and nares suctioned for secretions. Pitocin started for active 3rd stage management. Cord doubly clamped and cut by FOB after pulsations ceased, delayed cord clamping. Placenta delivered intact via valdes, 3 vessel cord intact. Perineum inspected and revealed 1st degree perineal laceration. Repaired with 3.0 vicryl rapide and epidural. Fundus firm and hemostasis achieved. EBL 500ml. Mom and baby stable, planning to breastfeed. Family bonding well. notified of delivery. Presentation: Vertex and CECILIO Amniotic Membrane Rupture Type: Spontaneous Amniotic Fluid Description: Clear Placental Delivery Description: Spontaneous Placenta Disposition: [facility] Cord Vessel Description: 3 Vessels Cord Entanglement: None A Gender: Male (1 minute): 9 (5 minute): 9 Delayed Cord Clamping: Yes Post Vaginal Delivery Medications Given After Delivery: IV Pitocin and IM Pitocin Episiotomy Description: None Laceration: Perineal Extension/lac and 1st degree Complication Complications: None
[2023-06-09] MEDS: Ondansetron 4 MG/2 ML Vial IV (05:50)
[2023-06-09] MEDS: Ibuprofen 600 MG Tablet PO ×2 (09:12→17:20)
--- OUTSIDE RECORDS SUMMARY | 2023-06-09 14:31 | XMS RPT_ITS | CCD ---
Author Name Unknown Address [address] [place] [address] Organization [facility] Care Team Providers Care Information And Referral Director Name Role Phone TEODORO MYERS Attending Unavailable [...] [MORPHINE] Drug Allergy 06-23-2022 Itching, Rash, Swelling [facility] Medications Completed/Discontinued Medications Medication Drug Class(es) Dates [...] 80.65 kg Kayla Plotila BARKER Work Phone: [facility] 05-02-2023 16:34-0500 Diastolic blood pressure 78 mm[Hg] Kayla Duran ROADS SUPERINTENDENT.CNM Work Phone: [facility] 05-02-2023 16:34-0500 Systolic blood pressure 120 mm[Hg] Kayla Duran ROADS SUPERINTENDENT.CNM Work Phone: [facility] 04-16-2023 16:30-0500 Body weight 79.83 kg Teodoro Alejandro ROADS SUPERINTENDENT.CNM Work Phone: [facility] 04-16-2023 16:30-0500 Diastolic blood pressure 60 mm[Hg] Teodoro Alejandro ROADS SUPERINTENDENT.CNM Work Phone: [facility] 04-16-2023 16:30-0500 Systolic blood pressure 108 mm[Hg] Teodoro Alejandro ROADS SUPERINTENDENT.CNM Work Phone: [facility] 04-02-2023 16:09-0500 Body weight 78.47 kg Kristan Jackson MD Work Phone: [facility] 04-02-2023 16:09-0500 Diastolic blood pressure 60 mm[Hg] Kristan Jackson MD Work Phone: [facility] 04-02-2023 16:09-0500 Systolic blood pressure 102 mm[Hg] Kristan Jackson MD Work Phone: [facility] 03-19-2023 15:06-0500 Body weight 77.11 kg Aundrea Castelan MD Work Phone: [facility] 03-19-2023 15:06-0500 Diastolic blood pressure 62 mm[Hg] Aundrea Castelan MD Work Phone: [facility] 03-19-2023 15:06-0500 Systolic blood pressure 102 mm[Hg] Aundrea Castelan MD Work Phone: [facility] 02-20-2023 16:10-0400 Body weight 77.11 kg Neli Cadet MD Work Phone: [facility] 02-20-2023 16:10-0400 Diastolic blood pressure 62 mm[Hg] Neli Cadet MD Work Phone: [facility] 02-20-2023 16:10-0400 Systolic blood pressure 102 mm[Hg] Neli Cadet MD Work Phone: [facility] 01-30-2023 14:29-0400 Body temperature 99.19 [degF] Neli Cadet MD Work Phone: [facility] 01-30-2023 14:29-0400 Body weight 74.75 kg Neli Cadet MD Work Phone: [facility] 01-30-2023 14:29-0400 Diastolic blood pressure 62 mm[Hg] Neli Cadet MD Work Phone: [facility] 01-30-2023 14:29-0400 Systolic blood pressure 108 mm[Hg] Neli Cadet MD Work Phone: [facility] 01-23-2023 15:46-0400 Body weight 75.3 kg Neli Cadet MD Work Phone: [facility] 01-23-2023 15:46-0400 Diastolic blood pressure 56 mm[Hg] Neli Cadet MD Work Phone: [facility] 01-23-2023 15:46-0400 Systolic blood pressure 94 mm[Hg] Neli Cadet MD Work Phone: [facility] 12-21-2022 15:21-0400 Body weight 72.94 kg Kayla Duran ROADS SUPERINTENDENT.CNM Work Phone: [facility] 12-21-2022 15:21-0400 Diastolic blood pressure 56 mm[Hg] Kayla Warnerts ROADS SUPERINTENDENT.CNM Work Phone: [facility] 12-21-2022 15:21-0400 Systolic blood pressure 90 mm[Hg] Kayla Plotts ROADS SUPERINTENDENT.CNM Work Phone: [facility] 11-23-2022 15:48-0400 Body weight 72.58 kg Elina Stinson APRN.SENIOR ACCOUNT DIRECTOR Work Phone: [facility] 11-23-2022 15:48-0400 Diastolic blood pressure 70 mm[Hg] Elina Stinson ROADS SUPERINTENDENT.SENIOR ACCOUNT DIRECTOR Work Phone: [facility] 11-23-2022 15:48-0400 Systolic blood pressure 110 mm[Hg] Elina Stinson ROADS SUPERINTENDENT.SENIOR ACCOUNT DIRECTOR Work Phone: [facility] 10-26-2022 14:54-0400 Body height 170.2 cm Kristan Jackson MD Work Phone: [facility] 10-26-2022 14:54-0400 Body weight 75.75 kg Kristan Jackson MD Work Phone: [facility] 10-26-2022 14:54-0400 Diastolic blood pressure 70 mm[Hg] Kristan Jackson MD Work Phone: [facility] 10-26-2022 14:54-0400 Systolic blood pressure 110 mm[Hg] Kristan Jackson MD Work Phone: [facility] 09-11-2022 15:47-0400 Diastolic blood pressure 60 mm[Hg] Beba Chelly ROADS SUPERINTENDENT.SENIOR ACCOUNT DIRECTOR Work Phone: [facility] 09-11-2022 15:47-0400 Systolic blood pressure 100 mm[Hg] Beba [place] ROADS SUPERINTENDENT.SENIOR ACCOUNT DIRECTOR Work Phone: [facility] 06-23-2022 15:00-0500 Body height 172.7 cm Kristan Jackson MD Work Phone: [facility] 06-23-2022 15:00-0500 Body weight 76.66 kg Kristan Jackson MD Work Phone: [facility] 06-23-2022 15:00-0500 Diastolic blood pressure 68 mm[Hg] Kristan Jackson MD Work Phone: [facility] 06-23-2022 15:00-0500 Systolic blood pressure 110 mm[Hg] Kristan Jackson MD Work Phone: [facility] Encounters Encounter Date Encounter Type Care Provider Facility Start: 06-06-2023 End: 06-06-2023 ambulatory STEVEN ALMANZA Facility:[facility] Start: 05-30-2023 End: 05-31-2023 ambulatory TEODORO ALEJANDRO Facility:[facility] Start: 05-22-2023 End: 05-23-2023 ambulatory STEVEN ALMANZA Facility:[facility] Start: 05-17-2023 End: 05-17-2023 ambulatory NELI CADET Facility:[facility] Start: 05-02-2023 End: 05-02-2023 ambulatory KAYLA DURAN Facility:[facility] Start: 05-02-2023 End: 05-02-2023 Patient encounter procedure Kayla Duran ROADS SUPERINTENDENT.CNM Work Phone: OB/Gynecology Procedures Date Procedure Procedure Detail Performing Clinician Start: 05-02-2023 RSV VACCINE, BIVALEN T (ABRYSVO) Kayla Duran ROADS SUPERINTENDENT.CNM Work Phone: Start: 05-02-2023 URINE OB DIP B/O Amanda Duran ROADS SUPERINTENDENT.CNM Work Phone: Start: 04-16-2023 URINE OB DIP B/O Shahzad Alejandro ROADS SUPERINTENDENT.CNM Work Phone: Start: 04-02-2023 INFLUENZA VACCINE, A GE 6 MO - 64 YR, QUADRIVALENT (AFLURIA, FLULAVAL, FLUZONE) Kristan Jackson MD Work Phone: Start: 04-02-2023 URINE OB DIP B/O Krsitan davis MD Work Phone: Start: 03-19-2023 URINE [...] after 1st trimest 05/14 gestation Kayla Duran ROADS SUPERINTENDENT.CNM Work Phone: Start: 12-21-2022 URINE OB DIP B/O Amanda Duran APRN.ALEX[employer]REAM Work Phone: Start: 10-26-2022 Antibody screen Kristan buckner MD Work Phone: Start: 10-26-2022 Antibody screen NELI CADET Plan of Treatment Date Care Activity Detail Author Start: 03-19-2033 Urine microalbumin profile [facility] Start: 06-23-2025 PAP TESTING PAP TESTING [facility] Start: 06-23-2025 Screening for malign ant neoplasm of cervix Pap Testing [facility] Start: 04-12-2023 RSV Vaccine (1 - Ris k 1-dose series) RSV Vaccine (1 - Risk 1-dose series) [facility] Start: 02-20-2023 End: 04-22-2023 CBC W Auto Differential panel - Blood CBC + DIFF Lab Routine 24 weeks gestation of Expected: 02/20/2023, Expires: 04/22/2023 [facility] Work Phone: Immunizations Immunization Date Immunization Notes Care Provider Fa [facility] 05-02-2023 respiratory syncytia l virus (RSV) vaccine, bivalent (ABRYSVO) Kayla Duran APRN.AL[employer]ANDREAM Work Phone: [facility] 04-02-2023 influenza, injectabl e, quadrivalent, contains preservative Kristan Jackson MD Work Phone: [facility] 03-19-2023 tetanus toxoid, redu jadyn diphtheria toxoid, and acellular pertussis vaccine, adsorbed Aundrea Castelan MD Work Phone: [facility] 03-10-2022 influenza virus vacc ine, unspecified formulation Neli Cadet MD Work Phone: [facility] Payers Date Payer Category Payer Unknown [employer] BLUE CARD PPO OOS [id number] 2022-Present [phone] [id number] [place] [address] PPO [id number] 2022 Unknown [id number] 2021 Unknown [id number] 1995 Unknown [id number] Social History Date Type Detail Facility Tobacco smoking stat [facility] Tobacco smoking consumption unknown [facility] Start: 1995 Sex Assigned At Not on file [facility] Start: 06-23-2022 Tobacco smoking stat [facility] Never smoked tobacco [facility] Start: 06-23-2022 Tobacco use and exposure Smokeless t obacco non-user [facility] Start: 06-23-2022 End: 09-11-2022 Alcohol intake Current drinker of alcohol (finding) [facility] Start: 10-12-2022 End: 05-02-2023 Alcohol intake Ex-drinker (finding) [facility] Start: 10-12-2022 Education 17 [facility] Start: 09-14-2022 [facility] Start: 09-18-2022 End: 10-26-2022 History of Social function [facility] Start: 09-18-2022 End: 10-26-2022 Tobacco use panel [facility] National Score (1-10 0), lower number is lower risk 92 [facility] Goals Date Patient Goal Desired Activity /State Personal health goal Clinical Notes 05-26-2022 to 05-31-2023 Quick Notes - Kayla Duran APRN.CNM - 05/02/2023 4:43 PM ESTPatient InstructionsTelephone Encounter - Delia Mcdaniel RN - 04/26/2023 12:56 PM ESTPatient Instructions Note Date & Type Note Facility 05-31-2023 Note HNO ID: [id number] Author: ?, ?, ? Service: ? Author [...] Mathieu Stallings May 31, 2023 9:10 AM [facility] 05-24-2023 Note Patient Outreach (FREDIS TNAV) TOMER SANTOS ([id number]) 1995 F Date Time Provider Department 05/24/23 MATHIEU LING (IDANIA) NETNAV During your visit today, we recorded the following information about you: Mathieu Castorena 05/24/2023 10:26 AM Signed POPULATION HEALTH NAVIGATION OUTREACH Action/FYI Called and spoke to patient and she doesn't have a pediatrican selected. she said to send her the link via Bawte and I can call her next week. Digital Guardian message sent per patient request. OB/PEDS Patient Identified by Name and : YES, via phone Outreach Outcome/Action Spoke to patient / parent / legal guardian: Patient will return the call or ask for return call DartPoints message sent Did you use a PCP flex slot to schedule this appointment? N/A Reason for Outreach Imbler Payer: Payor: AMIRA / Plan: BLUE CARD PPO OOS / Product Type: PPO / Care Gap Reviewed:: N/A Reminder: Reminder note to check Health Maintenance for items below Health Maintenance items due: HPV Vaccine(1 - 2-dose series) due on 2005 Covid-19 Vaccine(2022- season) due on 01/12/2023 Depression Assessment Never done Navigation Signature: Mathieu Stallings May 24, 2023 10:21 AM Mathieu Castorena [...] Encounter Status:Closed by MATHIEU CASTORENA on 05/24/23 [facility] 05-24-2023 Note HNO ID: [id number] Author: ?, ?, ? Service: ? Author Type: ? Type: Progress Notes Filed: 05/24/2023 10:26 Note Text: POPULATION HEALTH NAVIGATION OUTREACH Action/KWAMEI Called and spoke to patient and she doesn't have a pediatrican selected. she said to send her the link via Bawte and I can call her next week. [employer] message sent per patient request. OB/PEDS Patient Identified by Name and : YES, via phone Outreach Outcome/Action Spoke to patient / parent / legal guardian: Patient will return the call or ask for return call [employer]Points message sent Did you use a PCP flex slot to schedule this appointment? N/A Reason for Outreach Imbler Payer: Payor: NABEELEM / Plan: BLUE CARD PPO OOS / Product Type: PPO / Care Gap Reviewed:: N/A Reminder: Reminder note to check Health Maintenance for items below Health Maintenance items due: HPV Vaccine(1 - 2-dose series) due on 2005 Covid-19 Vaccine( season) due on 01/12/2023 Depression Assessment Never done Navigation Signature: Mathieu Stallings May 24, 2023 10:21 AM [facility] 05-02-2023 Miscellaneous Notes Formattin g of [...] Kayla Duran APRN.CNM documented in this encounter [facility] 05-02-2023 Instructions Mathieu Mosqueda MA - 05/02/2023 4:29 PM EST SEQUENTIAL SCREENINGS The [facility] offers sequential screenings for women who are [...] It will require an appointment with our environmental field services technician. This is not an ultrasound performed [...] the above symptoms, contact our office at [phone] and ask to speak with a nurse. After hours, you can call doctors registry at [phone] OR call [facility] at [phone] and ask to have the doctor branch operation evaluation manager paged. If you consider this an emergency, dial or go to your nearest emergency department. NEED HELP? Are you dealing with a violent or abusive relationship? Are you a victim of rape or sexual assult? Call [facility] ([place]) 24 hour Crisis Hotline: 524.591.6142 or 944-331-2986. MANUAL Your Guide to a Healthy manual is now on-line. Visit [email or web address]/HealthyPre gnancyGuide to download your free copy documented in this encounter [facility] 04-26-2023 Miscellaneous Notes Formattin g of this note might be different from the original. Patient notified. Delia Mcdaniel RN This is likely normal as long as no signs vaginitis or STD concerns. Neli Cadet MD documented in this encounter [facility] 04-16-2023 Miscellaneous Notes Formattin g of this [...] Teodoro Alejandro APRN.CNM documented in this encounter [facility] 04-16-2023 Tano Darby Cma - 04/16/2023 4:23 PM EST SEQUENTIAL SCREENINGS The [facility] offers sequential screenings for women who are [...] It will require an appointment with our environmental field services technician. This is not an ultrasound performed [...] the above symptoms, contact our office at [phone] and ask to speak with a nurse. After hours, you can call doctors registry at [phone] OR call [facility] at [phone] and ask to have the doctor branch operation evaluation manager paged. If you consider this an emergency, dial 91-5 or go to your nearest emergency department. NEED HELP? Are you dealing with a violent or abusive relationship? Are you a victim of rape or sexual assult? Call [facility] ([place]) 24 hour Crisis Hotline: 827.923.9388 or 957-879-2998. MANUAL Your Guide to a Healthy manual is now on-line. Visit [email or web address]/HealthyPre gnancyGuide to download your free copy documented in this encounter [facility] 04-11-2023 Miscellaneous Notes Formattin g of this [...] she tested positive for covid today at [facility]. Symptoms started on 04/09/23. Next visit with [...] Dottie Hernandez RN documented in this encounter [facility] 04-09-2023 Miscellaneous Notes Formattin g of this [...] be active. RENAE documented in this encounter [facility] 04-02-2023 Miscellaneous Notes Formattin g of this [...] Kristan Jackson DO documented in this encounter [facility] 04-02-2023 Instructions Kristan Jackson MD - 04/02/2023 4:04 PM EST SEQUENTIAL SCREENINGS The [facility] offers sequential screenings for women who are [...] It will require an appointment with our environmental field services technician. This is not an ultrasound performed [...] the above symptoms, contact our office at [phone] and ask to speak with a nurse. After hours, you can call doctors registry at [phone] OR call [facility] at [phone] and ask to have the doctor branch operation evaluation manager paged. If you consider this an emergency, dial 9-1- or go to your nearest emergency department. NEED HELP? Are you dealing with a violent or abusive relationship? Are you a victim of rape or sexual assult? Call [facility] ([place]) 24 hour Crisis Hotline: 167.528.3027 or 385-664-7974. MANUAL Your Guide to a Healthy manual is now on-line. Visit [email or web address]/HealthyPre gnancyGuide to download your free copy In person and online childbirth options: 1) [facility] Online Virtual Childbirth and Class. -Please call to register and for more information: [phone] and register for our online classes they are $40 for both or $20 for just the class ?? 2) [facility] Online Childbirth Education, , and Imbler classes: [email or web address]://[email or web address].[email or web address] .[email or web address] 3) Here is a list of online childbirth education and resources. [facility] has online childbirth, , and parenting classes. https://events.[facility] .org, type in childbirth https://evidencebaseiMedX.com /childbirth-class/ https://blissful-.LiquidFrameworks.iLost/p/empoweredmamasguide https://mamanaturalbirth.com/ documented in this encounter [facility] 03-20-2023 Miscellaneous Notes Formattin g of this note might be different from the original. Patient notified. Reviewed instructions and also sent a detailed message via Digital Guardian per patient request. Delia Mcdaniel RN Left message for patient to call office. Dottie Hernandez RN ----- Message from Neli Cadet MD sent at 03/20/2023 3:12 PM EST ----- Needs iron for anemia Neli Cadet MD documented in this encounter [facility] 03-19-2023 Note HNO ID: [id number] Author: Ally Solano Ma Service: ? Author [...] severely ill: Yes Patient denies history of Guillain-[place] Syndrome (a severe paralytic illness): Yes Tdap Adacel injection was given without incident. See immunizations for details of immunizations administered today. VIS sheet provided: Yes Provider Dr Castelan was present in office at time of injection. Ally Solano Ma [facility] 03-19-2023 Miscellaneous Notes Formattin g of [...] Aundrea Castelan M.D. documented in this encounter [facility] 03-19-2023 History of Presen t illness Narrative [...] severely ill: Yes Patient denies history of Guillain-[place] Syndrome (a severe paralytic illness): Yes Tdap Adacel injection was given without incident. See immunizations for details of immunizations administered today. VIS sheet provided: Yes Provider Dr Castelan was present in office at time of injection. Ally Solano Ma documented in this encounter [facility] 03-19-2023 Instructions Ally Solano Ma - 03/19/2023 3:09 PM EST SEQUENTIAL SCREENINGS The [facility] offers sequential screenings for women who are [...] It will require an appointment with our environmental field services technician. This is not an ultrasound performed [...] the above symptoms, contact our office at [phone] and ask to speak with a nurse. After hours, you can call doctors registry at [phone] OR call [facility] at [phone] and ask to have the doctor branch operation evaluation manager paged. If you consider this an emergency, dial 91-6 or go to your nearest emergency department. NEED HELP? Are you dealing with a violent or abusive relationship? Are you a victim of rape or sexual assult? Call [facility] ([place]) 24 hour Crisis Hotline: 994.878.1843 or 348-479-4728. MANUAL Your Guide to a Healthy manual is now on-line. Visit [email or web address]/HealthyPre gnancyGuide to download your free copy documented in this encounter [facility] 02-20-2023 Miscellaneous Notes Formattin g of this note might be different from the original. KJ - No VB/LOF/ctxs. Reports good FM. Also reports heartburn. A&P: 28wk labs ordered GERD - advised on diet, tums & pepcid Reviewed PTL & FM precautions Neli Cadet MD documented in this encounter [facility] 02-20-2023 Instructions Cheryl Merlos Ma - 02/20/2023 4:05 PM EDT SEQUENTIAL SCREENINGS The [facility] offers sequential screenings for women who are [...] It will require an appointment with our environmental field services technician. This is not an ultrasound performed [...] the above symptoms, contact our office at [phone] and ask to speak with a nurse. After hours, you can call doctors registry at [phone] OR call [facility] at [phone] and ask to have the doctor branch operation evaluation manager paged. If you consider this an emergency, dial 9-1-1 or go to your nearest emergency department. NEED HELP? Are you dealing with a violent or abusive relationship? Are you a victim of rape or sexual assult? Call [facility] ([place]) 24 hour Crisis Hotline: 308.370.2384 or 856-299-4879. MANUAL Your Guide to a Healthy manual is now on-line. Visit [email or web address]/HealthyPre gnancyGuide to download your free copy documented in this encounter [facility] 02-09-2023 Note HNO ID: [id number] Author: Dottie Hernandez RN Service: ? Author Type: ? Type: Progress Notes Filed: 02/09/2023 9:32 AM Note Text: Order signed and faxed. Dottie Hernandez RN [facility] 02-08-2023 Note HNO ID: [id number] Author: Delia Mcdaniel RN Service: ? Author Type: ? Type: Progress Notes Filed: 02/08/2023 2:31 PM Note Text: Received breast pump order from [employer]. To FRANCISCA to sign. Delia Mcdaniel RN [facility] 02-08-2023 History of Presen t illness Narrative Received breast pump order from [employer]. To KJ to sign. Delia Mcdaniel RN documented in this encounter [facility] 01-30-2023 Miscellaneous Notes Formattin g of this [...] Neli Cadet MD documented in this encounter [facility] 01-30-2023 Instructions Cheryl Merlos Ma - 01/30/2023 2:20 PM EDT SEQUENTIAL SCREENINGS The [facility] offers sequential screenings for women who are [...] It will require an appointment with our environmental field services technician. This is not an ultrasound performed [...] the above symptoms, contact our office at [phone] and ask to speak with a nurse. After hours, you can call doctors registry at [phone] OR call [facility] at [phone] and ask to have the doctor branch operation evaluation manager paged. If you consider this an emergency, dial 9-0 or go to your nearest emergency department. NEED HELP? Are you dealing with a violent or abusive relationship? Are you a victim of rape or sexual assult? Call [facility] ([place]) 24 hour Crisis Hotline: 441.865.1495 or 285-514-5551. MANUAL Your Guide to a Healthy manual is now on-line. Visit [email or web address]/HealthyPre gnancyGuide to download your free copy documented in this encounter [facility] 01-29-2023 Miscellaneous Notes Formattin g of this [...] Delia Mcdaniel RN documented in this encounter [facility] 01-23-2023 Miscellaneous Notes Formattin g of this note might be different from the original. KJ - No VB/LOF/ctxs. Reports FM. A&P: Anatomy US reviewed Neli Cadet MD documented in this encounter [facility] 01-23-2023 Instructions s Cheryl Stokes - 01/23/2023 3:45 PM EDT SEQUENTIAL SCREENINGS The [facility] offers sequential screenings for women who are [...] It will require an appointment with our environmental field services technician. This is not an ultrasound performed [...] the above symptoms, contact our office at [phone] and ask to speak with a nurse. After hours, you can call [facility] at [phone] OR call [facility] at [phone] and ask to have the doctor branch operation evaluation manager paged. If you consider this an emergency, dial 9-1-1 or go to your nearest emergency department. NEED HELP? Are you dealing with a violent or abusive relationship? Are you a victim of rape or sexual assult? Call [facility] ([place]) 24 hour Crisis Hotline: 216.348.9149 or 457-513-1503. MANUAL Your Guide to a Healthy manual is now on-line. Visit [email or web address]/HealthyPre gnancyGuide to download your free copy documented in this encounter [facility] 12-21-2022 Miscellaneous Notes Formattin g of this [...] Kayla Duran APRN.CNM documented in this encounter [facility] 12-21-2022 Instructions Kayla Duran APRN.CNM - 12/21/2022 10:58 AM EDT Tylenol extra strength 1000 mg PO every 6-8 hours Excedrin Migraine- not together with Tylenol Zyrtec 10 mg Magnesium citrate SEQUENTIAL SCREENINGS The [facility] offers sequential screenings for women who are [...] It will require an appointment with our environmental field services technician. This is not an ultrasound performed [...] the above symptoms, contact our office at [phone] and ask to speak with a nurse. After hours, you can call [facility] at [phone] OR call [facility] at [phone] and ask to have the doctor branch operation evaluation manager paged. If you consider this an emergency, dial [phone] or go to your nearest emergency department. NEED HELP? Are you dealing with a violent or abusive relationship? Are you a victim of rape or sexual assult? Call [facility] ([place]) 24 hour Crisis Hotline: 195.226.6370 or 861-828-4838. MANUAL Your Guide to a Healthy manual is now on-line. Visit [email or web address] to download your free copy documented in this encounter [facility] 11-29-2022 Miscellaneous Notes Formattin g of this [...] visit was 11/23. Please advise. Can send Bawte message with response. Dottie Hernandez RN documented in this encounter [facility] 11-23-2022 Miscellaneous Notes Formattin g of this [...] left pelvis. RTO 4 weeks. Elina Stinson APRN.SENIOR ACCOUNT DIRECTOR documented in this encounter [facility] 11-23-2022 Instructions Devorah Carroll Ma - 11/23/2022 3:47 PM EDT SEQUENTIAL SCREENINGS The [facility] offers sequential screenings for women who are [...] It will require an appointment with our environmental field services technician. This is not an ultrasound performed [...] the above symptoms, contact our office at [phone] and ask to speak with a nurse. After hours, you can call [facility] at [phone] OR call [facility] at [phone] and ask to have the doctor branch operation evaluation manager paged. If you consider this an emergency, dial -- or go to your nearest emergency department. NEED HELP? Are you dealing with a violent or abusive relationship? Are you a victim of rape or sexual assult? Call [facility] ([place]) 24 hour Crisis Hotline: 447.836.7216 or 403-969-1876. MANUAL Your Guide to a Healthy manual is now on-line. Visit [email or web address] to download your free copy documented in this encounter [facility] 11-06-2022 Miscellaneous Notes Formattin g of this note might be different from the original. filed Request received from pharmacy for 90 day Rx of Vitamin B6. Patient 9w4d, last seen 10/26. Indira Fernandes RN documented in this encounter [facility] 10-26-2022 Note HNO ID: [id number] Author: Kristan Jackson MD Service: ? Author Type: Physician Type: Progress Notes Filed: 10/26/2022 3:43 PM Note Text: Fur Machine Operator offered: Patient declines. INITIAL OB ASSESSMENT OB [...] use: No Multivitamin with Folic acid: Yes Synagogue or heritage: No Would refuse blood transfusion if medically necessary: No Are you currently employed? 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 [facility] 10-26-2022 History of Presen t illness Narrative Fur Machine Operator offered: Patient declines. INITIAL OB ASSESSMENT OB [...] use: No Multivitamin with Folic acid: Yes Synagogue or heritage: No Would refuse blood transfusion if medically necessary: No Are you currently employed? 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 OB Community care order placed. Discussed aneuploidy [...] Kristan Jackson DO documented in this encounter [facility] 10-26-2022 Instructions Mathieu Mosqueda MA - 10/26/2022 2:48 PM EDT Please select the following link to access the [facility] Your Guide to a Healthy . [email or web address] donte documented in this encounter [facility] 10-12-2022 Miscellaneous Notes Formattin g of this [...] testing.Chuyita Peng RN documented in this encounter [facility] 09-11-2022 Note HNO ID: [id number] Author: Beba Spaulding APRN.SENIOR ACCOUNT DIRECTOR Service: ? Author Type: Nurse Practitioner Type: [...] L0 SAB0 IAB0 Ectopic0 Multiple0 Live Births0 Towel Folder History LMP: 08/31/2022, Having periods Age at Menarche: Age at First : Age at Menopause: Towel Folder History Comments: Sexual Activity: No sexual activity [...] Medical Decision Making Level: 4 - Moderate [facility] 09-11-2022 History of Presen t illness [...] L0 SAB0 IAB0 Ectopic0 Multiple0 Live Births0 Towel Folder History LMP: 08/31/2022, Having periods Age at Menarche: Age at First : Age at Menopause: Towel Folder History Comments: Sexual Activity: No sexual activity [...] 4 - Moderate documented in this encounter [facility] 06-23-2022 Note HNO ID: [id number] Author: Kristan Jackson MD Service: ? Author Type: Physician Type: Progress Notes Filed: 06/28/2022 7:44 PM Note Text: Fur Machine Operator offered: Patient declines. Tomer is a 26 year old who presents for an annual gynecologic exam with complaints, questions about ovulation . Has PMDD. Interested in . Menses: Was on OCP since 2014 stopped end of 04/2022. 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 Tomer is a 26 year old who presents for an annual gynecologic exam with complaints, questions about ovulation . Has PMDD. Interested in . Menses: Was on OCP since 2014 stopped end of 04/2022. 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 Dr. Cruz looked over chart concerning referral. Referral to Hims Clerk not appropriate. Note sent to Referring physician (Dr. Dalton) with Dr. Diggs recommendation. 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 Dr. Cruz recommends no F/U is needed unless pt. Has recurrent infections or reactive airway disease or allergy. Then she should be referred to an Lunchroom Mother or Staffing Director. Message also left on pts. Voicemail no appt. Necessary in this office, contact Dr. Dalton office for further instruction. Aracelis Bonilla LPN Summary: NEW PATIENT Received referral and placed in nurse mailbox for review. DX: IGF DEFICIENCY REF PROV: SHANA DALTON INS: NABEELEM documented in this encounter [facility] Diagnosis Abnormal uterine bleeding (AUB)- Primary Generalized abdominal cramping Abdominal pain, generalized [facility] Diagnosis Abnormal uterine bleeding (AUB) Generalized abdominal cramping Abdominal pain, generalized [facility] Diagnosis Supervision of normal first , antepartum- Primary History of anorexia nervosa Personal history of other mental disorder Family history of congenital heart defect Family history of congenital anomalies Patient request for diagnostic testing Other specified examination [facility] Diagnosis Encounter for supervision of normal first in first trimester- Primary Supervision of normal first Nausea and vomiting during Patient request for diagnostic testing Other specified examination [facility] Diagnosis Encounter for supervision of normal first in first trimester Supervision of normal first Nausea and vomiting during [facility] Diagnosis 12 weeks gestation of - Primary state, incidental [facility] Diagnosis 16 weeks gestation of - Primary state, incidental Encounter for supervision of normal first in first trimester Supervision of normal first [facility] Diagnosis Encounter for anatomic survey- Primary Encounter for supervision of normal first in first trimester Supervision of normal first 19 weeks gestation of state, incidental [facility] Diagnosis Supervision of normal first , antepartum- Primary 20 weeks gestation of state, incidental [facility]* Diagnosis Encounter for supervision of normal first in second trimester- Primary Supervision of normal first 21 weeks gestation of state, incidental RLQ abdominal pain Abdominal pain, right lower quadrant [facility] Diagnosis Encounter for supervision of normal first in second trimester- Primary Supervision of normal first 24 weeks gestation of state, incidental [facility] Diagnosis 28 weeks gestation of - Primary state, incidental Encounter for supervision of normal first in third trimester Supervision of normal first Need for vaccination Need for prophylactic vaccination and inoculation against unspecified single disease [facility] Diagnosis 30 weeks gestation of - Primary state, incidental Encounter for supervision of normal first in third trimester Supervision of normal first Need for influenza vaccination Need for prophylactic vaccination and inoculation against influenza [facility] Diagnosis Anemia during in third trimester- Primary Encounter for supervision of normal first in third trimester Supervision of normal first 32 weeks gestation of state, incidental [facility] Diagnosis 34 weeks gestation of - Primary state, incidental Encounter for supervision of normal first in third trimester Supervision of normal first Need for vaccination Need for prophylactic vaccination and inoculation against unspecified single disease documented in this encounter [facility] for referral (narrative)* Diagnostic Procedure Only (Routine) - Open Specialty Diagnoses / Procedures Referred By Eneida rose Referred To Contact [facility] Diagnoses Abnormal uterine bleeding (AUB) Generalized abdominal cramping Procedures PELVIC US WHI US PELVIC NONOBSTETRIC REAL-TIME IMAGE COMPLETE Beba Spaulding APRN.CNP [address] [place] [address] [facility] [address] [place] [address] Referral ID Status Reason Start Date Expiration Date V isits Requested Visits Authorized [id number] Open Auto-Generate d Referral 09/11/2022 09/11/2023 1 1 [facility] for referral (narrative)* Diagnostic Procedure Only (Routine) - Pending Review Specialty Diagnoses / Procedures Referred By Eneida rose Referred To Contact [facility] Diagnoses 16 weeks gestation of Encounter for supervision of normal first in first trimester Procedures OBSTETRIC ULTRASOUND WHI US PREG UTERUS AFTER 1ST TRIMEST GESTATION Kayla Duran APRN.CNM [address] [place] [address] [facility] [address] [place] [address] Referral ID Status Reason Start Date Expiration Date Visits Requested Visits Authorized [id number] Pending Review Auto-Generat ed Referral 12/21/2022 12/21/2023 1 1 [facility] Summary Purpose Family History No Family History Records FoundNo Family History Records FoundNo Family History Records Found Advance Directives No Advanced Directives Records FoundNo Advanced Directives Records FoundNo Advanced Directives Records Found Reason for Referral Specialty Diagnoses / Procedures Referred By Eneida rose Referred To Contact Dermatology Diagnoses Skin lesion Procedures CONSULT TO DERMATOLOGY Kristan Jackson MD [address] [place] [address] Referral ID Status Reason Start Date Expiration Date Visits Requested Visits Authorized [id number] Ref Not Required PCP Requested Referral 06/23/2022 06/23/2023 1 1 Health Concerns Problem Noted Date [facility] Education - [facility] 10/12 Education - [place] 10/26/2022 Problem Noted Date [facility] - [facility] 10/12 Education - [place] 10/26/2022 Problem Noted Date Diagnosed Date [facility] - [facility] 10/26/2022 Education - [place] 10/26/2022 Problem Noted Date Diagnosed Date [facility] - [facility] 10/26/2022 Education - [place] 10/26/2022 Problem Noted Date Diagnosed Date [facility] - [facility] 10/26/2022 Education - [place] 10/26/2022 Problem Noted Date Diagnosed Date [facility] - [facility] 10/26/2022 Education - [place] 10/26/2022 Problem Noted Date Diagnosed Date [facility] - [facility] 10/26/2022 Education - [place] 10/26/2022 Problem Noted Date Diagnosed Date [facility] - [facility] 10/26/2022 Education - [place] 10/26/2022 Problem Noted Date Diagnosed Date [facility] - [facility] 10/26/2022 Education - [place] 10/26/2022 Problem Noted Date Diagnosed Date [facility] - [facility] 10/26/2022 [place] - [place] 10/26/2022 Additional Source Comments INFORMATION SOURCE (unrecogn ized section and content) DATE CREATED AUTHOR AUTHOR'S ORGANIZ ATION 06/21/2021 [facility] DATE CREATED AUTHOR AUTHOR'S ORGANIZ ATION 06/07/2023 [facility] Source Comments (unrecognize d section and content) In the event this informatio n is protected by the Federal Confidentiality of Alcohol and Drug Abuse Patient Records regulations: The Federal rules restrict any use of the information to criminally investigate or prosecute any alcohol or drug abuse patient.[facility] the event this information is protected by the Federal Confidentiality of Alcohol and Drug Abuse Patient Records regulations: The Federal rules restrict any use of the information to criminally investigate or prosecute any alcohol or drug abuse patient.[facility] the event this information is protected by the Federal Confidentiality of Alcohol and Drug Abuse Patient Records regulations: The Federal rules restrict any use of the information to criminally investigate or prosecute any alcohol or drug abuse patient.[facility] System[facility] the event this information is protected by the Federal Confidentiality of Alcohol and Drug Abuse Patient Records regulations: The Federal rules restrict any use of the information to criminally investigate or prosecute any alcohol or drug abuse patient.[facility] System[facility] the event this information is protected by the Federal Confidentiality of Alcohol and Drug Abuse Patient Records regulations: The Federal rules restrict any use of the information to criminally investigate or prosecute any alcohol or drug abuse patient.[facility] System[facility] the event this information is protected by the Federal Confidentiality of Alcohol and Drug Abuse Patient Records regulations: The Federal rules restrict any use of the information to criminally investigate or prosecute any alcohol or drug abuse patient.[facility] System[facility] the event this information is protected by the Federal Confidentiality of Alcohol and Drug Abuse Patient Records regulations: The Federal rules restrict any use of the information to criminally investigate or prosecute any alcohol or drug abuse patient.[facility] System[facility] the event this information is protected by the Federal Confidentiality of Alcohol and Drug Abuse Patient Records regulations: The Federal rules restrict any use of the information to criminally investigate or prosecute any alcohol or drug abuse patient.[facility] System[facility] the event this information is protected by the Federal Confidentiality of Alcohol and Drug Abuse Patient Records regulations: The Federal rules restrict any use of the information to criminally investigate or prosecute any alcohol or drug abuse patient.[facility] System[facility] the event this information is protected by the Federal Confidentiality of Alcohol and Drug Abuse Patient Records regulations: The Federal rules restrict any use of the information to criminally investigate or prosecute any alcohol or drug abuse patient.[facility] System[facility] the event this information is protected by the Federal Confidentiality of Alcohol and Drug Abuse Patient Records regulations: The Federal rules restrict any use of the information to criminally investigate or prosecute any alcohol or drug abuse patient.[facility] System[facility] the event this information is protected by the Federal Confidentiality of Alcohol and Drug Abuse Patient Records regulations: The Federal rules restrict any use of the information to criminally investigate or prosecute any alcohol or drug abuse patient.[facility] System[facility] the event this information is protected by the Federal Confidentiality of Alcohol and Drug Abuse Patient Records regulations: The Federal rules restrict any use of the information to criminally investigate or prosecute any alcohol or drug abuse patient.[facility] System[facility] the event this information is protected by the Federal Confidentiality of Alcohol and Drug Abuse Patient Records regulations: The Federal rules restrict any use of the information to criminally investigate or prosecute any alcohol or drug abuse patient.[facility] SystemIn the event this information is protected by the Federal Confidentiality of Alcohol and Drug Abuse Patient Records regulations: The Federal rules restrict any use of the information to criminally investigate or prosecute any alcohol or drug abuse patient.[facility] SystemIn the event this information is protected by the Federal Confidentiality of Alcohol and Drug Abuse Patient Records regulations: The Federal rules restrict any use of the information to criminally investigate or prosecute any alcohol or drug abuse patient.[facility] SystemIn the event this information is protected by the Federal Confidentiality of Alcohol and Drug Abuse Patient Records regulations: The Federal rules restrict any use of the information to criminally investigate or prosecute any alcohol or drug abuse patient.[facility] SystemIn the event this information is protected by the Federal Confidentiality of Alcohol and Drug Abuse Patient Records regulations: The Federal rules restrict any use of the information to criminally investigate or prosecute any alcohol or drug abuse patient.[facility] SystemIn the event this information is protected by the Federal Confidentiality of Alcohol and Drug Abuse Patient Records regulations: The Federal rules restrict any use of the information to criminally investigate or prosecute any alcohol or drug abuse patient.[facility] SystemIn the event this information is protected by the Federal Confidentiality of Alcohol and Drug Abuse Patient Records regulations: The Federal rules restrict any use of the information to criminally investigate or prosecute any alcohol or drug abuse patient.[facility] SystemIn the event this information is protected by the Federal Confidentiality of Alcohol and Drug Abuse Patient Records regulations: The Federal rules restrict any use of the information to criminally investigate or prosecute any alcohol or drug abuse patient.[facility] SystemIn the event this information is protected by the Federal Confidentiality of Alcohol and Drug Abuse Patient Records regulations: The Federal rules restrict any use of the information to criminally investigate or prosecute any alcohol or drug abuse patient.[facility] SystemIn the event this information is protected by the Federal Confidentiality of Alcohol and Drug Abuse Patient Records regulations: The Federal rules restrict any use of the information to criminally investigate or prosecute any alcohol or drug abuse patient.[facility] SystemIn the event this information is protected by the Federal Confidentiality of Alcohol and Drug Abuse Patient Records regulations: The Federal rules restrict any use of the information to criminally investigate or prosecute any alcohol or drug abuse patient.[facility] Reason for Visit (unrecogniz ed section and content) Reason Comments Yearly Exam Reason Comments Irregular Menstrual Cycle 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 Specialty Diagnoses / Procedures Referred By Contac t Referred To Contact [facility] Diagnoses Abnormal uterine bleeding (AUB) Generalized abdominal cramping Procedures PELVIC US WHI US PELVIC NONOBSTETRIC REAL-TIME IMAGE COMPLETE Beba Spaulding APRN.SENIOR ACCOUNT DIRECTOR [address] [place] [address] [facility] [address] [place] [address] Referral ID Status Reason Start Date Expiration Date V isits Requested Visits Authorized [id number] Closed Auto-Generate d Referral 09/14/2022 05/13/2023 1 1 Reason Comments Care Reason Comments Med Change Request Reason Onset Date Comments Care 11/23/2022 Reason Comments Question (OB Question) Reason Onset Date Comments Care 12/21/2022 Reason Comments US Specialty Diagnoses / Procedures Referred By Contac t Referred To Contact [facility] Diagnoses 16 weeks gestation of Encounter for supervision of normal first in first trimester Procedures OBSTETRIC ULTRASOUND WHI US PREG UTERUS AFTER 1ST TRIMEST GESTATION Kayla Duran APRN.CNM [address] [place] [address] [facility] [address] [place] [address] Referral ID Status Reason Start Date Expiration Date Visits Requested Visits Authorized [id number] Authorized Auto-Generat ed Referral 01/02/2023 05/13/2023 20 [...] BE BASED ON THE PRIMARY CLINICAL RECORDS. [facility] [employer] provides no warranty or guarantee of the accuracy or completeness of information in this document.
[2023-06-10 00:05] VITALS: BP 116/54; PULSE 79; RESP 16; TEMP 36.6
[2023-06-10 04:35] VITALS: BP 107/70; PULSE 79; RESP 16; TEMP 36.8; O2SAT 96
[2023-06-10 08:45] VITALS: BP 105/70; PULSE 84; RESP 16; TEMP 36.5
--- NOTE | 2023-06-10 09:36 | PCM.PN.OB ---
Subjective Subjective Doing well per patient and nursing staff. Ambulating and taking PO without difficulty. Voiding and passing flatus. Pain controlled. , services for assistance. Denies headache, visual changes, chest pain, shortness of breath, leg pain or increased bleeding. Lochia normal. Objective Data Objective Data Vital Signs: Vital Signs Temp Pulse Resp BP Pulse Ox O2 Del Method 97.7 F L 84 16 105/70 96 Room Air 06/10/23 08:45 06/10/23 08:45 06/10/23 08:45 06/10/23 08:45 06/10/23 04:35 06/10/23 08:45 Oxygen Delivery Method Room Air Weight: 186 lb Body Mass Index (BMI) 29.1 Intake & Output: Intake and Output for Last 24 Hours 06/08/23 06/09/23 06/10/23 23:59 23:59 23:59 Intake Total 1333 / 1333 Output Total 1950 / 1950 Balance -617 / -617 Lab / Micro Data 06/09/23 00:30 ROS Constitutional Constitutional: Reports systems reviewed and no addt'l complaints, except as documented; Denies headache(s) Eyes Eyes: Denies acute decrease in peripheral vision, blurry vision or change in vision ENT HEENT: Reports systems reviewed and no addt'l complaints, except as documented Cardiovascular Cardiovascular: Denies chest pain or dizziness Respiratory/Chest Respiratory/Chest: Denies cough, dyspnea, dyspnea on exertion, shortness of breath at rest or shortness of breath with exertion Gastrointestinal Gastrointestinal: Denies abdominal pain, diarrhea, nausea or vomiting Genitourinary Genitourinary: Denies abdominal discomfort Musculoskeletal Musculoskeletal: Denies limited range of motion Integumentary Integumentary: Reports systems reviewed and no addt'l complaints, except as documented Neurologic Neurologic: Reports systems reviewed and no addt'l complaints, except as documented Psychiatric Psychiatric: Reports systems reviewed and no addt'l complaints, except as documented Endocrine Endocrinology: Reports systems reviewed and no addt'l complaints, except as documented Hematologic/Lymphatic Hematologic/Lymphatic: Reports systems reviewed and no addt'l complaints, except as documented Allergic/Immunologic Allergic/Immunologic: Reports systems reviewed and no addt'l complaints, except as documented Physical Exam Const alert and oriented x3 General Appearance: cooperative Orientation / Consciousness: awake, oriented to person, oriented to place and oriented to time Exam Limitations: no limitations HEENT normocephalic Head and Scalp: normal to inspection, normocephalic and atraumatic Face and Sinus: normal facial exam Eyes General Eye: normal appearance of both eyes Neck full ROM Chest Chest: symmetrical chest wall rise Resp normal respiratory effort and normal air movement Auscultation: clear to auscultation bilaterally Cardio regular rate, regular rhythm, S1 normal heart sound, S2 normal heart sound, no murmurs, no rub, no gallops and no clicks GI normal to inspection, nondistended, normoactive bowel sounds and non-tender appearance of the vagina normal Bladder / Kidney Exam: no CVA tenderness Back/Spine normal ROM Extremity normal to inspection and full ROM Skin no rashes or lesions noted Neuro oriented x3, CN's II-XII intact bilaterally and moves all extremities Sensorium / Orientation: awake, alert and oriented to person Motor Exam: clonus absent Deep Tendon Reflexes: Rt Patellar (L4): 2+ and Lt Patellar (L4): 2+ Assessment & Plan (1) First degree perineal laceration: (2) Vaginal delivery: (3) Lactating mother: PLAN: Plan 1) Routine PP Care. PPD #1 2) Vitals stable 3) 5) Follow up in 2 and 6 weeks
--- NOTE | 2023-06-10 10:43 | PCM.DC.SUM ---
Providers Date of Admission: 06/09/23 Primary Care Physician: [place] Primary Care Phys Reason For Visit: VAGINAL DELIVERY Diagnosis Discharge Diagnosis (1) First degree perineal laceration: Status: Acute Code(s): O70.0 - First degree perineal laceration during delivery (2) Vaginal delivery: Status: Acute Code(s): O80 - Encounter for full-term uncomplicated delivery (3) Lactating mother: Status: Acute Code(s): Z39.1 - Encounter for care and examination of lactating mother Plan 1) Routine PP Care. PPD #1 2) Vitals stable 3) 5) Follow up in 2 and 6 weeks Medications at Discharge Home Medications acetaminophen 500 mg tablet 1,000 mg (2 x 500 mg) PO Q6H PRN PRN Pain 1-10 Or Fever #0 tabs 06/10/23 ibuprofen 600 mg tablet 600 mg PO Q6H PRN PRN Pain Score 1-3 #0 tabs 06/10/23 Hospital Course Operations None Procedures None Summary of Care Provided Minutes Spent on Discharge: 15 Weight / BMI Weight Weight: 186 lb Body Mass Index (BMI) 29.1 ABG / Lab / Microbiology Data 06/09/23 00:30 D/C Instructions Discharge Diet: No restrictions Discharge Activity: Return to Normal Activity, May Drive and May Shower May resume sexual activity in: 6 weeks Weight Bearing Status: Full weight bearing When: 2 weeks and 6 weeks Meaningful Use Info Meaningful Use Diagnoses (Choose all that apply): None applicable Discharge Plan Admission Admit Date/Time: 06/09/23 00:27 Primary Reason for Your Visit: Vaginal Delivery, first degree perineal laceration Attending Provider: Pooja Alejandro Primary Care Provider: Care Physician,[place] Primary Discharge Orders/Prescriptions Prescriptions: New acetaminophen 500 mg Tablet 1,000 mg PO Q6H PRN PRN (Reason: Pain 1-10 Or Fever) Qty: 0 0RF ibuprofen 600 mg Tablet 600 mg PO Q6H PRN PRN (Reason: Pain Score 1-3) Qty: 0 0RF Referrals / Follow Up: Care Physician,No Primary [Primary Care Provider] - Disposition Disposition (needs filled in before D/C Order can be placed): Home, Self Care
[2023-06-10 13:50] VITALS: BP 110/47; PULSE 74; RESP 14; TEMP 36.6
== END 2023-06-10 14:00 | disposition home or self-care (01) | DRG 807 ==
LOC: WP 04:07 → WPOUT 14:28
PROVIDERS: Admitting Provider Advanced Practice Midwife; Visit Provider Advanced Practice Midwife
DX: O70.0 First degree perineal laceration during delivery (principal); Z37.0 Single live birth; O99.02 Anemia complicating childbirth; Z86.59 Personal history of other mental and behavioral disorders; Z3A.40 40 weeks gestation of pregnancy
CPT/HCPCS: 59050; 85025; 86780; 86850; 86900; 86901; J7120; J2405

== ENCOUNTER 2023-06-11 15:21 | Emergency (ER) | payer BC, SELFPAY ==
[2023-06-11 15:22] VITALS: BP 119/83; PULSE 124; RESP 16; TEMP 36.3; O2SAT 99
[2023-06-11 15:28] VITALS: BMI 29.4
--- NOTE | 2023-06-11 15:30 | ED.RN ---
dr day consulted from triage. to get CT from triage no further orders at this time until dr bailey
--- NOTE | 2023-06-11 15:50 | CT_ITS ---
STUDY: CT BRAIN WITHOUT CONTRAST REASON FOR EXAM: Female, 27 years old. [place], vision changes, dizziness RADIATION DOSAGE (If Supplied By Facility): CTDIvol = ( 47.06 ) mGy, DLP = ( 872.68 ) mGycm TECHNIQUE: Transaxial CT imaging of the brain was performed without administration of intravenous contrast material. Individualized dose optimization techniques were used for this CT. COMPARISON: No relevant priors. FINDINGS: Normal soft tissue structures. Normal calvarium. Normal size ventricles and extra-axial spaces for the patient''s age. Normal white matter tracts of the cerebral hemispheres. Normal basal ganglia and thalami. Normal brainstem. Normal cerebellum. There is no intracranial hemorrhage. There are no findings of an acute ischemic infarction. Normal visualized paranasal sinuses. CT/Brain/Head without Contrast IMPRESSION: Normal unenhanced CT scan of the brain. Electronically Signed: Saul Holliday MD at 17:04 EST ,
[2023-06-11 16:29] VITALS: BP 119/84; PULSE 70; RESP 16; O2SAT 99
[2023-06-11 16:32] VITALS: BMI 29.4
--- OUTSIDE RECORDS SUMMARY | 2023-06-11 16:34 | XMS RPT_ITS | CCD ---
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 0 04/11/2023 Active Problems Active Problems Problem Classification Problem Date Documented Date Episodic/Chronic Deficiency and other anemia (8 sources) Anemia; Translations: [Other specified anemias] Onset: [...] 09-11-2022 Chronic Other and delivery including normal (17 sources) Normal ; Translations: [Encounter for supervision [...] weeks gestation of ] Onset: 03-19-2023 Episodic Residual codes; unclassified (1 source) Gestation period, 38 weeks; Translations: [38 weeks gestation of ] 05-30-2023 Episodic Past or Other Problems Problem Classification [...] Vital Sign Value Performing Clinician Amina hart 05-30-2023 16:38-0500 Body weight 84.1 kg Teodoro Alejandro SERVICE ATTENDANT CAFETERIA.CNM Work Phone: [facility] 05-30-2023 16:38-0500 Diastolic blood pressure 64 mm[Hg] Teodoro Alejandro SERVICE ATTENDANT CAFETERIA.CNM Work Phone: [facility] 05-30-2023 16:38-0500 Systolic blood pressure 98 mm[Hg] Teodoro Alejandro SERVICE ATTENDANT CAFETERIA.CNM Work Phone: [facility] 05-02-2023 16:34-0500 Body weight 80.65 kg Kayla Duran SERVICE ATTENDANT CAFETERIA.CNM Work Phone: [facility] 05-02-2023 16:34-0500 Diastolic blood pressure 78 mm[Hg] Kayla Plotts SERVICE ATTENDANT CAFETERIA.CNM Work Phone: [facility] 05-02-2023 16:34-0500 Systolic blood pressure 120 mm[Hg] Kayla Plotts SERVICE ATTENDANT CAFETERIA.CNM Work Phone: [facility] 04-16-2023 16:30-0500 Body weight 79.83 kg Teodoro Alejandro SERVICE ATTENDANT CAFETERIA.CNM Work Phone: [facility] 04-16-2023 16:30-0500 Diastolic blood pressure 60 mm[Hg] Teodoro Alejandro SERVICE ATTENDANT CAFETERIA.CNM Work Phone: [facility] 04-16-2023 16:30-0500 Systolic blood pressure 108 mm[Hg] Teodoro Alejandro SERVICE ATTENDANT CAFETERIA.CNM Work Phone: [facility] 04-02-2023 16:09-0500 Body weight 78.47 kg Kristan Jackson MD Work Phone: [facility] 04-02-2023 16:09-0500 Diastolic blood pressure 60 mm[Hg] Kristan Jackson MD Work Phone: [facility] 04-02-2023 16:09-0500 Systolic blood pressure 102 mm[Hg] Kristan Jackson MD Work Phone: [facility] 03-19-2023 15:06-0500 Body weight 77.11 kg Aundrea Castelan MD Work Phone: [facility] 03-19-2023 15:06-0500 Diastolic blood pressure 62 mm[Hg] Aundrea Castelan MD Work Phone: [facility] 03-19-2023 15:06-0500 Systolic blood pressure 102 mm[Hg] Aundrea Castelan MD Work Phone: [facility] 02-20-2023 16:10-0400 Body weight 77.11 kg Neli Cadet MD Work Phone: [facility] 02-20-2023 16:10-0400 Diastolic blood pressure 62 mm[Hg] Neli Cadet MD Work Phone: [facility] 02-20-2023 16:10-0400 Systolic blood pressure 102 mm[Hg] Neli Cadet MD Work Phone: [facility] 01-30-2023 14:29-0400 Body temperature 99.19 [degF] Neli Cadet MD Work Phone: [facility] 01-30-2023 14:29-0400 Body weight 74.75 kg Neli Cadet MD Work Phone: [facility] 01-30-2023 14:29-0400 Diastolic blood pressure 62 mm[Hg] Neli Cadet MD Work Phone: [facility] 01-30-2023 14:29-0400 Systolic blood pressure 108 mm[Hg] Neli Cadet MD Work Phone: [facility] 01-23-2023 15:46-0400 Body weight 75.3 kg Neli Cadet MD Work Phone: [facility] 01-23-2023 15:46-0400 Diastolic blood pressure 56 mm[Hg] Neli Cadet MD Work Phone: [facility] 01-23-2023 15:46-0400 Systolic blood pressure 94 mm[Hg] Neli Cadet MD Work Phone: [facility] 12-21-2022 15:21-0400 Body weight 72.94 kg Kayla Plotts SERVICE ATTENDANT CAFETERIA.CNM Work Phone: [facility] 12-21-2022 15:21-0400 Diastolic blood pressure 56 mm[Hg] Kayla Plotts SERVICE ATTENDANT CAFETERIA.CNM Work Phone: [facility] 12-21-2022 15:21-0400 Systolic blood pressure 90 mm[Hg] Kayla Plotts SERVICE ATTENDANT CAFETERIA.CNM Work Phone: [facility] 11-23-2022 15:48-0400 Body weight 72.58 kg Elina Stinson SERVICE ATTENDANT CAFETERIA.BLACKING MACHINE OPERATOR Work Phone: [facility] 11-23-2022 15:48-0400 Diastolic blood pressure 70 mm[Hg] Elina Yuhrie SERVICE ATTENDANT CAFETERIA.BLACKING MACHINE OPERATOR Work Phone: [facility] 11-23-2022 15:48-0400 Systolic blood pressure 110 mm[Hg] Elina Barreraie SERVICE ATTENDANT CAFETERIA.BLACKING MACHINE OPERATOR Work Phone: [facility] 10-26-2022 14:54-0400 Body height 170.2 cm Kristan Jackson MD Work Phone: [facility] 10-26-2022 14:54-0400 Body weight 75.75 kg Kristan Jackson MD Work Phone: [facility] 10-26-2022 14:54-0400 Diastolic blood pressure 70 mm[Hg] Kristan Jackson MD Work Phone: [facility] 10-26-2022 14:54-0400 Systolic blood pressure 110 mm[Hg] Kristan Jackson MD Work Phone: [facility] 09-11-2022 15:47-0400 Diastolic blood pressure 60 mm[Hg] Beba Chelly SERVICE ATTENDANT CAFETERIA.BLACKING MACHINE OPERATOR Work Phone: [facility] 09-11-2022 15:47-0400 Systolic blood pressure 100 mm[Hg] Beba [place] SERVICE ATTENDANT CAFETERIA.BLACKING MACHINE OPERATOR Work Phone: [facility] 06-23-2022 15:00-0500 Body height 172.7 cm Kristan Jackson MD Work Phone: [facility] 06-23-2022 15:00-0500 Body weight 76.66 kg Kristan Jackson MD Work Phone: [facility] 06-23-2022 15:00-0500 Diastolic blood pressure 68 mm[Hg] Kristan Jackson MD Work Phone: [facility] 06-23-2022 15:00-0500 Systolic blood pressure 110 mm[Hg] Kristan Jackson MD Work Phone: [facility] Encounters Encounter Date Encounter Type Care Provider Facility Start: 06-06-2023 End: 06-06-2023 ambulatory STEVEN ALMANZA Facility:[facility] Start: 05-30-2023 End: 05-31-2023 ambulatory TEODORO ALEJANDRO Facility:[facility] Start: 05-30-2023 End: 05-30-2023 Patient encounter procedure Teodoro Alejandro SERVICE ATTENDANT CAFETERIA.CNM Work Phone: OB/Gynecology Procedures Date Procedure Procedure Detail Performing Clinician Start: 05-30-2023 URINE OB DIP B/O Shahzad Alejandro SERVICE ATTENDANT CAFETERIA.CNM Work Phone: Start: 05-02-2023 RSV VACCINE, BIVALEN T (ABRYSVO) Kayla Duran SERVICE ATTENDANT CAFETERIA.CNM Work Phone: Start: 05-02-2023 URINE OB DIP B/O Amanda Duran SERVICE ATTENDANT CAFETERIA.CNM Work Phone: Start: 04-16-2023 URINE OB DIP B/O Shahzad Alejandro SERVICE ATTENDANT CAFETERIA.CNM Work Phone: Start: 04-02-2023 INFLUENZA VACCINE, A [...] after 1st trimest 05/14 gestation Kayla Duran SERVICE ATTENDANT CAFETERIA.CNM Work Phone: Start: 12-21-2022 URINE OB DIP B/O Amanda Duran SERVICE ATTENDANT CAFETERIA.CNM Work Phone: Start: 10-26-2022 Antibody screen Kristan buckner MD Work Phone: Start: 10-26-2022 Antibody screen NELI CADET Plan of Treatment Date Care Activity Detail Author Start: 03-19-2033 Urine microalbumin profile [facility] Start: 06-23-2025 PAP TESTING PAP TESTING [facility] Start: 06-23-2025 Screening for malign ant neoplasm of cervix Pap Testing [facility] Start: 05-14-2023 Depression Assessment Depression Ass essment [facility] Start: 04-12-2023 RSV Vaccine (1 - Ris k 1-dose series) RSV Vaccine (1 - Risk 1-dose series) [facility] Start: 02-20-2023 End: 04-22-2023 CBC W Auto Differential panel - Blood CBC + DIFF Lab Routine 24 weeks gestation of Expected: 02/20/2023, Expires: 04/22/[address] [facility] Work Phone: Immunizations Immunization Date Immunization Notes Care Provider Fa cility 05-02-2023 respiratory syncytia l virus (RSV) vaccine, bivalent (ABRYSVO) Kayla Duran SERVICE ATTENDANT CAFETERIA.CNM Work Phone: [facility] 04-02-2023 influenza, injectabl e, quadrivalent, contains preservative Kristan Jackson MD Work Phone: [facility] 03-19-2023 tetanus toxoid, redu jadyn diphtheria toxoid, and acellular pertussis vaccine, adsorbed Aundrea Castelan MD Work Phone: [facility] 03-10-2022 influenza virus vacc ine, unspecified formulation Neli Cadet MD Work Phone: [facility] Payers Date Payer Category Payer Unknown [employer] BLUE CARD PPO OOS [id number] 2022-Present [phone] [address] [place] [address] PPO [id number] 2022 Unknown [id number] 2021 Unknown [id number] 1995 Unknown [id number] Social History Date Type Detail Facility Tobacco smoking stat [facility] Tobacco smoking consumption unknown [facility] Start: 1995 Sex Assigned At Not on file [facility] Start: 06-23-2022 Tobacco smoking stat [facility] Never smoked tobacco [facility] Start: 06-23-2022 Tobacco use and exposure Smokeless t obacco non-user [facility] Start: 06-23-2022 End: 09-11-2022 Alcohol intake Current drinker of alcohol (finding) [facility] Start: 10-12-2022 End: 05-30-2023 Alcohol intake Ex-drinker (finding) [facility] Start: 10-12-2022 Education 17 [facility] Start: 09-14-2022 [facility] Start: 09-18-2022 End: 10-26-2022 History of Social function [facility] Start: 09-18-2022 End: 10-26-2022 Tobacco use panel [facility] National Score (1-10 0), lower number is lower risk 92 [facility] Goals Date Patient Goal Desired Activity /State Personal health goal Clinical Notes 05-26-2022 to 05-31-2023 Patient InstructionsPrenatal Quick Notes - Teodoro Alejandro APRN.CNM - 05/30/2023 11:13 AM ESTPrenatal Quick Notes - Kayla Duran APRN.CNM - 05/02/2023 4:43 PM ESTPatient Instructions Note Date & Type Note Facility 05-31-2023 Note HNO ID: [id number] Author: ?, ?, ? Service: ? Author Type: ? Type: Progress Notes Filed: 05/31/2023 09:12 Note Text: POPULATION HEALTH NAVIGATION OUTREACH Action/FYI 3rd attempt- Called patient as requested by patient. Left a voicemail and asked that she call me back. OB/PEDS Patient Identified by Name and : NO Outreach Outcome/Action Unable to reach patient: Left message Did you use a PCP flex slot to schedule this appointment? N/A Navigation Signature: Mathieu Finkluis eduardo Pss May 31, 2023 9:10 AM [facility] 05-30-2023 Instructions Tano Kyle Cma - 05/30/2023 4:30 PM EST SEQUENTIAL SCREENINGS The [facility] offers sequential screenings for women who are [...] It will require an appointment with our network operations center technician. This is not an ultrasound performed [...] the above symptoms, contact our office at [phone] and ask to speak with a nurse. After hours, you can call doctors registry at [phone] OR call [facility] at [phone] and ask to have the doctor site monitor paged. If you consider this an emergency, dial 01-12- or go to your nearest emergency department. NEED HELP? Are you dealing with a violent or abusive relationship? Are you a victim of rape or sexual assult? Call [facility] ([place]) 24 hour Crisis Hotline: 195.880.7037 or 512-408-3814. MANUAL Your Guide to a Healthy manual is now on-line. Visit [email or web address]/HealthyPre gnancyGuide to download your free copy documented in this encounter [facility] 05-30-2023 Miscellaneous Notes Formattin g of this note might be different from the original. JUDIT-S: Tomer Santos is a 27 year old female who presents at 38w6d with JESSICA:06/07/2023, by Last Menstrual Period for a routine visit. Denies headache, visual changes, chest pain, shortness of breath, vaginal bleeding, leakage of fluid, or dysuria. Feeling well, no complaints. O: See flow sheet Gen: No apparent distress Abd: Gravid, nontender ASSESSMENT/PLAN: 1. Encounter for supervision of normal first in third trimester 2. 38 weeks gestation of P: 1) Labor instructions reviewed and when to call 2) RTO in one week 3) Reviewed elective IOL vs expectant management. Would like expectant management. Teodoro Alejandro APRN.CNM documented in this encounter [facility] 05-24-2023 Note Patient Outreach (FREDIS WHITE) TOMER SANTOS ([id number]) 1995 F Date Time Provider Department 05/24/23 MATHIEU LING (PSS) During your visit today, we recorded the following information about you: Mathieu Castorena 05/24/2023 10:26 AM Signed POPULATION HEALTH NAVIGATION OUTREACH Action/RENAE Called and spoke to patient and she doesn't have a pediatrican selected. she said to send her the link via [employer] and I can call her next week. Manifactt message sent per patient request. OB/PEDS Patient Identified by Name and : YES, via phone Outreach Outcome/Action Spoke to patient / parent / legal guardian: Patient will return the call or ask for return call [employer] message sent Did you use a PCP flex slot to schedule this appointment? N/A Reason for Outreach [place] Payer: Payor: [employer] / Plan: BLUE CARD [...] 9:12 AM Signed POPULATION HEALTH NAVIGATION OUTREACH Action/ 3rd attempt- [...] Encounter Status:Closed by MATHIEU CASTORENA on 05/24/23 [facility] 05-24-2023 Note HNO ID: [id number] Author: ?, ?, ? Service: ? Author Type: ? Type: Progress Notes Filed: 05/24/2023 10:26 Note Text: POPULATION HEALTH NAVIGATION OUTREACH Action/FYI Called and spoke to patient and she doesn't have a pediatrican selected. she said to send her the link via [employer] and I can call her next week. Man[employer] message sent per patient request. OB/PEDS Patient Identified by Name and : YES, via phone Outreach Outcome/Action Spoke to patient / parent / legal guardian: Patient will return the call or ask for return call [employer] message sent Did you use a PCP flex slot to schedule this appointment? N/A Reason for Outreach Payer: Payor: [employer] / Plan: BLUE CARD PPO OOS / Product Type: PPO / Care Gap Reviewed:: N/A Reminder: Reminder note to check Health Maintenance for items below Health Maintenance items due: HPV Vaccine(1 - 2-dose series) due on 2005 Covid-19 Vaccine( season) due on 01/12/2023 Depression Assessment Never done Navigation Signature: Mathieu Stallings May 24, 2023 10:21 AM [facility] 05-02-2023 Miscellaneous Notes Formattin g of [...] Kayla Duran APRN.CNM documented in this encounter [facility] 05-02-2023 Instructions Mathieu Mosqueda MA - 05/02/2023 4:29 PM EST SEQUENTIAL SCREENINGS The [facility] offers sequential screenings for women who are [...] It will require an appointment with our network operations center technician. This is not an ultrasound performed [...] the above symptoms, contact our office at [phone] and ask to speak with a nurse. After hours, you can call doctors registry at [phone] OR call [facility] at [phone] and ask to have the doctor site monitor paged. If you consider this an emergency, dial 4-8-8 or go to your nearest emergency department. NEED HELP? Are you dealing with a violent or abusive relationship? Are you a victim of rape or sexual assult? Call [facility] [place] ([facility] 24 hour Crisis Hotline: 182.541.9071 or 994-685-2539. MANUAL Your Guide to a Healthy manual is now on-line. Visit [email or web address]/HealthyPre gnancyGuide to download your free copy documented in this encounter [facility] 04-26-2023 Miscellaneous Notes Formattin g of this note might be different from the original. Patient notified. Delia Mcdaniel RN This is likely normal as long as no signs vaginitis or STD concerns. Neli Cadet MD documented in this encounter [facility] 04-16-2023 Miscellaneous Notes Formattin g of this [...] Teodoro Alejandro APRN.CNM documented in this encounter [facility] 04-16-2023 Instructions Tano Kyle Cma - 04/16/2023 4:23 PM EST SEQUENTIAL SCREENINGS The [facility] offers sequential screenings for women who are [...] It will require an appointment with our network operations center technician. This is not an ultrasound performed [...] the above symptoms, contact our office at [phone] and ask to speak with a nurse. After hours, you can call doctors registry at [phone] OR call [facility] at [phone] and ask to have the doctor site monitor paged. If you consider this an emergency, dial 9-1-9 or go to your nearest emergency department. NEED HELP? Are you dealing with a violent or abusive relationship? Are you a victim of rape or sexual assult? Call [facility] ([place]) 24 hour Crisis Hotline: 379.878.8336 or 691-562-9248. MANUAL Your Guide to a Healthy manual is now on-line. Visit [email or web address]/HealthyPre gnancyGuide to download your free copy documented in this encounter [facility] 04-11-2023 Miscellaneous Notes Formattin g of this [...] she tested positive for covid today at [facility]. Symptoms started on 04/09/23. Next visit with [...] Dottie Hernandez RN documented in this encounter [facility] 04-09-2023 Miscellaneous Notes Formattin g of this note might be different from the original. Patient had called in stating that she had some light bleeding after intercourse and called in last night and spoke with Dr Almanza. She is 31w4d. Calling with update as requested by Dr Almanza. Bleeding stopped 2 hours after she spoke with her. Baby has continued to be active. FYI documented in this encounter [facility] 04-02-2023 Miscellaneous Notes Formattin g of this [...] Kristan Jackson DO documented in this encounter [facility] 04-02-2023 Instructions Kristna Jackson MD - 04/02/2023 4:04 PM EST SEQUENTIAL SCREENINGS The [facility] offers sequential screenings for women who are [...] It will require an appointment with our network operations center technician. This is not an ultrasound performed [...] the above symptoms, contact our office at [phone] and ask to speak with a nurse. After hours, you can call doctors registry at [phone] OR call [facility] at [phone] and ask to have the doctor site monitor paged. If you consider this an emergency, dial --2 or go to your nearest emergency department. NEED HELP? Are you dealing with a violent or abusive relationship? Are you a victim of rape or sexual assult? Call [facility] ([place]) 24 hour Crisis Hotline: 151.759.6221 or 823-966-1441. MANUAL Your Guide to a Healthy manual is now on-line. Visit [email or web address]/HealthyPre gnancyGuide to download your free copy In person and online childbirth options: 1) [facility] Online Virtual Childbirth and Class. -Please call to register and for more information: [phone] and register for our online classes they are $40 for both or $20 for just the class ?? 2) [facility] Online Childbirth Education, , and classes: [email or web address]://events.[facility] .org 3) Here is a list of online childbirth education and resources. [facility] has online childbirth, , and parenting classes. https://events.[facility] .org, type in childbirth https://evidencebasedbirth.com /childbirth-class/ https://blissful-.teachab le.com/p/empoweredmamasguide https://mamanaturalbirth.com/ documented in this encounter [facility] 03-20-2023 Miscellaneous Notes Formattin g of this note might be different from the original. Patient notified. Reviewed instructions and also sent a detailed message via Mychart per patient request. Delia Mcdaniel RN Left message for patient to call office. Dottie Hernandez RN ----- Message from Neli Cadet MD sent at 03/20/2023 3:12 PM EST ----- Needs iron for anemia Neli Cadet MD documented in this encounter [facility] 03-19-2023 Note HNO ID: [id number] Author: Ally Solano Ma Service: ? Author [...] severely ill: Yes Patient denies history of Guillain-Denver Syndrome (a severe paralytic illness): Yes Tdap Adacel injection was given without incident. See immunizations for details of immunizations administered today. VIS sheet provided: Yes Provider Dr Castelan was present in office at time of injection. Ally Solano Ma [facility] 03-19-2023 Miscellaneous Notes Formattin g of [...] her LARC- likely will choose [facility] Aundrea Fawad, M.D. documented in this encounter [facility] 03-19-2023 History of Presen t illness Narrative [...] severely ill: Yes Patient denies history of Guillain-Denver Syndrome (a severe paralytic illness): Yes Tdap Adacel injection was given without incident. See immunizations for details of immunizations administered today. VIS sheet provided: Yes Provider Dr Castelan was present in office at time of injection. Ally Solano Ma documented in this encounter [facility] 03-19-2023 Instructions Ally Solano Ma - 03/19/2023 3:09 PM EST SEQUENTIAL SCREENINGS The [facility] offers sequential screenings for women who are [...] It will require an appointment with our network operations center technician. This is not an ultrasound performed [...] the above symptoms, contact our office at [phone] and ask to speak with a nurse. After hours, you can call doctors registry at [phone] OR call [facility] at [phone] and ask to have the doctor site monitor paged. If you consider this an emergency, dial 3-2-7 or go to your nearest emergency department. NEED HELP? Are you dealing with a violent or abusive relationship? Are you a victim of rape or sexual assult? Call [facility] ([place]) 24 hour Crisis Hotline: 111.532.2181 or 112-467-0841. MANUAL Your Guide to a Healthy manual is now on-line. Visit [email or web address]/HealthyPre gnancyGuide to download your free copy documented in this encounter [facility] 02-20-2023 Miscellaneous Notes Formattin g of this note might be different from the original. KJ - No VB/LOF/ctxs. Reports good FM. Also reports heartburn. A&P: 28wk labs ordered GERD - advised on diet, tums & pepcid Reviewed PTL & FM precautions Neli Cadet MD documented in this encounter [facility] 02-20-2023 Instructions Cheryl Merlos Ma - 02/20/2023 4:05 PM EDT SEQUENTIAL SCREENINGS The [facility] offers sequential screenings for women who are [...] It will require an appointment with our network operations center technician. This is not an ultrasound performed [...] the above symptoms, contact our office at [phone] and ask to speak with a nurse. After hours, you can call doctors registry at [phone] OR call [facility] at [phone] and ask to have the doctor site monitor paged. If you consider this an emergency, dial 9-1-1 or go to your nearest emergency department. NEED HELP? Are you dealing with a violent or abusive relationship? Are you a victim of rape or sexual assult? Call [facility] ([place]) 24 hour Crisis Hotline: 775.408.9562 or 395-561-2379. MANUAL Your Guide to a Healthy manual is now on-line. Visit [facility].org/HealthyPre gnancyGuide to download your free copy documented in this encounter [facility] 02-09-2023 Note HNO ID: [id number] Author: Dottie Hernandez RN Service: ? Author Type: ? Type: Progress Notes Filed: 02/09/2023 9:32 AM Note Text: Order signed and faxed. Dottie Hernandez RN [facility] 02-08-2023 Note HNO ID: [id number] Author: Delia Mcdaniel RN Service: ? Author Type: ? Type: Progress Notes Filed: 02/08/2023 2:31 PM Note Text: Received breast pump order from [facility]. To FRANCISCA to sign. Delia Mcdaniel RN [facility] 02-08-2023 History of Presen t illness Narrative Received breast pump order from [employer]. To FRANCISCA to sign. Delia Mcdaniel RN documented in this encounter [facility] 01-30-2023 Miscellaneous Notes Formattin g of this [...] Neli Cadet MD documented in this encounter [facility] 01-30-2023 Instructions s Cheryl Stokes - 01/30/2023 2:20 PM EDT SEQUENTIAL SCREENINGS The [facility] offers sequential screenings for women who are [...] It will require an appointment with our network operations center technician. This is not an ultrasound performed [...] the above symptoms, contact our office at [phone] and ask to speak with a nurse. After hours, you can call doctors registry at [phone] OR call [facility] at [phone] and ask to have the doctor site monitor paged. If you consider this an emergency, dial 01-12- or go to your nearest emergency department. NEED HELP? Are you dealing with a violent or abusive relationship? Are you a victim of rape or sexual assult? Call [facility] ([place]) 24 hour Crisis Hotline: 234.272.1127 or 240-772-4522. MANUAL Your Guide to a Healthy manual is now on-line. Visit [email or web address] to download your free copy documented in this encounter [facility] 01-29-2023 Miscellaneous Notes Formattin g of this [...] Delia Mcdaniel RN documented in this encounter [facility] 01-23-2023 Miscellaneous Notes Formattin g of this note might be different from the original. KJ - No VB/LOF/ctxs. Reports FM. A&P: Anatomy US reviewed Neli Cadet MD documented in this encounter [facility] 01-23-2023 Instructions Cheryl Merlos Ma - 01/23/2023 3:45 PM EDT SEQUENTIAL SCREENINGS [facility] offers sequential screenings for women who are [...] It will require an appointment with our network operations center technician. This is not an ultrasound performed [...] the above symptoms, contact our office at [phone] and ask to speak with a nurse. After hours, you can call doctors registry at [phone] OR call [facility] at [phone] and ask to have the doctor site monitor paged. If you consider this an emergency, dial 9-4-5 or go to your nearest emergency department. NEED HELP? Are you dealing with a violent or abusive relationship? Are you a victim of rape or sexual assult? Call [facility] ([facility] 24 hour Crisis Hotline: 105.483.1741 or 730-776-0219. MANUAL Your Guide to a Healthy manual is now on-line. Visit [email or web address] to download your free copy documented in this encounter [facility] 12-21-2022 Miscellaneous Notes Formattin g of this [...] Kayla Duran APRN.CNM documented in this encounter [facility] 12-21-2022 Instructions Kayla Duran APRN.CNM - 12/21/2022 10:58 AM EDT Tylenol extra strength 1000 mg PO every 6-8 hours Excedrin Migraine- not together with Tylenol Zyrtec 10 mg Magnesium citrate SEQUENTIAL SCREENINGS [facility] offers sequential screenings for women who are [...] It will require an appointment with our network operations center technician. This is not an ultrasound performed [...] the above symptoms, contact our office at [phone] and ask to speak with a nurse. After hours, you can call doctors registry at [phone] OR call [facility] at [phone] and ask to have the doctor site monitor paged. If you consider this an emergency, dial 9-1-1 or go to your nearest emergency department. NEED HELP? Are you dealing with a violent or abusive relationship? Are you a victim of rape or sexual assult? Call [facility] ([place]) 24 hour Crisis Hotline: 881.140.6288 or 537-531-3151. MANUAL Your Guide to a Healthy manual is now on-line. Visit [email or web address] to download your free copy documented in this encounter [facility] 11-29-2022 Miscellaneous Notes Formattin g of this [...] visit was 11/23. Please advise. Can send [employer] message with response. Dottie Hernandez RN documented in this encounter [facility] 11-23-2022 Miscellaneous Notes Formattin g of this [...] left pelvis. RTO 4 weeks. Elina Stinson APRN.BLACKING MACHINE OPERATOR documented in this encounter [facility] 11-23-2022 Instructions Devorah Carroll Ma - 11/23/2022 3:47 PM EDT SEQUENTIAL SCREENINGS [facility] offers sequential screenings for women who are [...] It will require an appointment with our network operations center technician. This is not an ultrasound performed [...] the above symptoms, contact our office at [phone] and ask to speak with a nurse. After hours, you can call doctors registry at [phone] OR call [facility] at [phone] and ask to have the doctor site monitor paged. If you consider this an emergency, dial 9-1-1 or go to your nearest emergency department. NEED HELP? Are you dealing with a violent or abusive relationship? Are you a victim of rape or sexual assult? Call [facility] [place] ([facility] 24 hour Crisis Hotline: 648.986.5995 or 710-755-4873. MANUAL Your Guide to a Healthy manual is now on-line. Visit [email or web address] to download your free copy documented in this encounter [facility] 11-06-2022 Miscellaneous Notes Formattin g of this note might be different from the original. filed Request received from pharmacy for 90 day Rx of Vitamin B6. Patient 9w4d, last seen 10/26. Indira Fernandes RN documented in this encounter [facility] 10-26-2022 Note HNO ID: [id number] Author: Kristan Jackson MD Service: ? Author Type: Physician Type: Progress Notes Filed: 10/26/2022 3:43 PM Note Text: Hourly Team Members offered: Patient declines. 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 [facility] 10-26-2022 History of Presen t illness Narrative Hourly Team Members offered: Patient declines. 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 OB Community care order placed. Discussed aneuploidy [...] Kristan Jackson DO documented in this encounter [facility] 10-26-2022 Instructions Mathieu Mosqueda MA - 10/26/2022 2:48 PM EDT Please select the following link to access the [facility] Your Guide to a Healthy . [email or web address] documented in this encounter [facility] 10-12-2022 Miscellaneous Notes Formattin g of this note might be different from the original. DISTANCE HEALTH VISIT This Team Access Model visit is a phone encounter. It required patient-provider interaction for the medical decision making as documented below. Patient states she has a history of anorexia from [age]- 19 that was treated on an outpatient basis. Patient's 's brother born with a heart issue. Had to have a pacemaker as an infant. Patient is unsure of the details but will provide them at the new OB visit. Patient desires aneuploidy screening. Contact information for [facility] given to patient to check on insurance coverage. Patient declined genetic carrier screening testing.Chuyita Peng RN documented in this encounter [facility] 09-11-2022 Note HNO ID: [id number] Author: Beba Spaulding APRN.BLACKING MACHINE OPERATOR Service: ? Author Type: Nurse Practitioner Type: Progress Notes Filed: 09/12/2022 10:25 AM Note Text: Tomer Santso is a 26 year old female who presents for problem visit pelvic pain for 5 month(s). HPI: she stopped OCP in April. Since then she is having spotting b/t period, cycle 26-28, flow 7 days. Increase in acne and increase with cycle cramping and in between period. Cramping and bleeding after intercourse. 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 LMP: 08/31/2022, Having periods Age at Menarche: Age at First : Age at Menopause: [employer] History Comments: Sexual Activity: No sexual activity [...] Medical Decision Making Level: 4 - Moderate [facility] 09-11-2022 History of Presen t illness [...] L0 SAB0 IAB0 Ectopic0 Multiple0 Live Births0 [employer]eter History LMP: 08/31/2022, Having periods Age at Menarche: Age at First : Age at Menopause: [employer] History Comments: Sexual Activity: No sexual activity [...] 4 - Moderate documented in this encounter [facility] 06-23-2022 Note HNO ID: [id number] Author: Kristan Jackson MD Service: ? Author Type: Physician Type: Progress Notes Filed: 06/28/2022 7:44 PM Note Text: Hourly Team Members offered: Patient declines. Tomer is a 26 year old who presents for an annual gynecologic exam with complaints, questions about ovulation . Has PMDD. Interested in . Menses: Was on OCP since 2014 stopped end of 04/2022. 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 Tomer is a 26 year old who presents for an annual gynecologic exam with complaints, questions about ovulation . Has PMDD. Interested in . Menses: Was on OCP since 2014 stopped end of 04/2022. 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 Dr. Cruz looked over chart concerning referral. Referral to Casing Man not appropriate. Note sent to Referring physician (Dr. Dalton) with Dr. Diggs recommendation. 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 Dr. Cruz recommends no F/U is needed unless pt. Has recurrent infections or reactive airway disease or allergy. Then she should be referred to an Yard Inspector or Surface Grinder. Message also left on pts. Voicemail no appt. Necessary in this office, contact Dr. Dalton office for further instruction. Aracelis Bonilla LPN Summary: NEW PATIENT Received referral and placed in nurse mailbox for review. DX: IGF DEFICIENCY REF PROV: SHANA JESSICA INS: ANTHEM documented in this encounter [facility] Diagnosis Abnormal uterine bleeding (AUB)- Primary Generalized abdominal cramping Abdominal pain, generalized [facility] Diagnosis Abnormal uterine bleeding (AUB) Generalized abdominal cramping Abdominal pain, generalized [facility] Diagnosis Supervision of normal first , antepartum- Primary History of anorexia nervosa Personal history of other mental disorder Family history of congenital heart defect Family history of congenital anomalies Patient request for diagnostic testing Other specified examination [facility] Diagnosis Encounter for supervision of normal first in first trimester- Primary Supervision of normal first Nausea and vomiting during Patient request for diagnostic testing Other specified examination [facility] Diagnosis Encounter for supervision of normal first in first trimester Supervision of normal first Nausea and vomiting during [facility] Diagnosis 12 weeks gestation of - Primary state, incidental [facility] Diagnosis 16 weeks gestation of - Primary state, incidental Encounter for supervision of normal first in first trimester Supervision of normal first [facility] Diagnosis Encounter for anatomic survey- Primary Encounter for supervision of normal first in first trimester Supervision of normal first 19 weeks gestation of state, incidental [facility] Diagnosis Supervision of normal first , antepartum- Primary 20 weeks gestation of state, incidental [facility] Diagnosis Encounter for supervision of normal first in second trimester- Primary Supervision of normal first 21 weeks gestation of state, incidental RLQ abdominal pain Abdominal pain, right lower quadrant [facility] Diagnosis Encounter for supervision of normal first in second trimester- Primary Supervision of normal first 24 weeks gestation of state, incidental [facility] Diagnosis 28 weeks gestation of - Primary state, incidental Encounter for supervision of normal first in third trimester Supervision of normal first Need for vaccination Need for prophylactic vaccination and inoculation against unspecified single disease [facility] Diagnosis 30 weeks gestation of - Primary state, incidental Encounter for supervision of normal first in third trimester Supervision of normal first Need for influenza vaccination Need for prophylactic vaccination and inoculation against influenza [facility] Diagnosis Anemia during in third trimester- Primary Encounter for supervision of normal first in third trimester Supervision of normal first 32 weeks gestation of state, incidental [facility] Diagnosis 34 weeks gestation of - Primary state, incidental Encounter for supervision of normal first in third trimester Supervision of normal first Need for vaccination Need for prophylactic vaccination and inoculation against unspecified single disease [facility] Diagnosis Encounter for supervision of normal first in third trimester- Primary Supervision of normal first 38 weeks gestation of state, incidental documented in this encounter [facility] for referral (narrative)* Diagnostic Procedure Only (Routine) - Open Specialty Diagnoses / Procedures Referred By Eneida t Referred To Contact [facility] Diagnoses Abnormal uterine bleeding (AUB) Generalized abdominal cramping Procedures PELVIC US WHI US PELVIC NONOBSTETRIC REAL-TIME IMAGE COMPLETE Beba Spaulding, OZZY.BLACKING MACHINE OPERATOR [address] [place] [address] [facility] [address] [place] [address] Referral ID Status Reason Start Date Expiration Date V isits Requested Visits Authorized [id number] Open Auto-Generate d Referral 09/11/2022 09/11/2023 1 1 [facility] Diagnostic Procedure Only (Routine) - Pending Review Specialty Diagnoses / Procedures Referred By Eneida t Referred To Contact [facility] Diagnoses 16 weeks gestation of Encounter for supervision of normal first in first trimester Procedures OBSTETRIC ULTRASOUND WHI US PREG UTERUS AFTER 1ST TRIMEST GESTATION Kayla Duran APRN.CNM [address] [place] [address] [facility] [address] [place] [id number] Referral ID Status Reason Start Date Expiration Date Visits Requested Visits Authorized [id number] Pending Review Auto-Generat ed Referral 12/21/2022 12/21/2023 1 1 [facility] Summary Purpose Family History No Family History Records FoundNo Family History Records FoundNo Family History Records Found Advance Directives No Advanced Directives Records FoundNo Advanced Directives Records FoundNo Advanced Directives Records Found Reason for Referral Specialty Diagnoses / Procedures Referred By Eneida rose Referred To Contact Dermatology Diagnoses Skin lesion Procedures CONSULT TO DERMATOLOGY Kristan Jackson MD [address] [place] [address] Referral ID Status Reason Start Date Expiration Date Visits Requested Visits Authorized [id number] Ref Not Required PCP Requested Referral 06/23/2022 06/23/2023 1 1 Health Concerns Problem Noted Date [facility] - COMMON 10/12 Education - [place] 10/26/2022 Problem Noted Date [facility] - COMMON 10/12 Education - [place] 10/26/2022 Problem Noted Date Diagnosed Date [facility] - [facility] 10/26/2022 Education - [place] 10/26/2022 Problem Noted Date Diagnosed Date [facility] - [facility] 10/26/2022 Education - [place] 10/26/2022 Problem Noted Date Diagnosed Date [facility] - [facility] 10/26/2022 Education - [place] 10/26/2022 Problem Noted Date Diagnosed Date [facility] - [facility] 10/26/2022 Education - [place] 10/26/2022 Problem Noted Date Diagnosed Date [facility] - [facility] 10/26/2022 Education - [place] 10/26/2022 Problem Noted Date Diagnosed Date [facility] - [facility] 10/26/2022 Education - [place] 10/26/2022 Problem Noted Date Diagnosed Date [facility] - [facility] 10/26/2022 Education - [place] 10/26/2022 Problem Noted Date Diagnosed Date [facility] - [facility] 10/26/2022 Education - [place] 10/26/2022 Additional Source Comments INFORMATION SOURCE (unrecogn ized section and content) DATE CREATED AUTHOR AUTHOR'S ORGANIZ ATION 06/21/2021 [facility] DATE CREATED AUTHOR AUTHOR'S ORGANIZ ATION 06/07/2023 [facility] Source Comments (unrecognize d section and content) In the event this informatio n is protected by the Federal Confidentiality of Alcohol and Drug Abuse Patient Records regulations: The Federal rules restrict any use of the information to criminally investigate or prosecute any alcohol or drug abuse patient.[facility] the event this information is protected by the Federal Confidentiality of Alcohol and Drug Abuse Patient Records regulations: The Federal rules restrict any use of the information to criminally investigate or prosecute any alcohol or drug abuse patient.[facility] the event this information is protected by the Federal Confidentiality of Alcohol and Drug Abuse Patient Records regulations: The Federal rules restrict any use of the information to criminally investigate or prosecute any alcohol or drug abuse patient.[facility] the event this information is protected by the Federal Confidentiality of Alcohol and Drug Abuse Patient Records regulations: The Federal rules restrict any use of the information to criminally investigate or prosecute any alcohol or drug abuse patient.[facility] the event this information is protected by the Federal Confidentiality of Alcohol and Drug Abuse Patient Records regulations: The Federal rules restrict any use of the information to criminally investigate or prosecute any alcohol or drug abuse patient.[facility] the event this information is protected by the Federal Confidentiality of Alcohol and Drug Abuse Patient Records regulations: The Federal rules restrict any use of the information to criminally investigate or prosecute any alcohol or drug abuse patient.[facility]In the event this information is protected by the Federal Confidentiality of Alcohol and Drug Abuse Patient Records regulations: The Federal rules restrict any use of the information to criminally investigate or prosecute any alcohol or drug abuse patient.[facility] the event this information is protected by the Federal Confidentiality of Alcohol and Drug Abuse Patient Records regulations: The Federal rules restrict any use of the information to criminally investigate or prosecute any alcohol or drug abuse patient.[facility]In the event this information is protected by the Federal Confidentiality of Alcohol and Drug Abuse Patient Records regulations: The Federal rules restrict any use of the information to criminally investigate or prosecute any alcohol or drug abuse patient.[facility]In the event this information is protected by the Federal Confidentiality of Alcohol and Drug Abuse Patient Records regulations: The Federal rules restrict any use of the information to criminally investigate or prosecute any alcohol or drug abuse patient.[facility]In the event this information is protected by the Federal Confidentiality of Alcohol and Drug Abuse Patient Records regulations: The Federal rules restrict any use of the information to criminally investigate or prosecute any alcohol or drug abuse patient.[facility] HospitalIn the event this information is protected by the Federal Confidentiality of Alcohol and Drug Abuse Patient Records regulations: The Federal rules restrict any use of the information to criminally investigate or prosecute any alcohol or drug abuse patient.[facility] HospitalIn the event this information is protected by the Federal Confidentiality of Alcohol and Drug Abuse Patient Records regulations: The Federal rules restrict any use of the information to criminally investigate or prosecute any alcohol or drug abuse patient.[facility] the event this information is protected by the Federal Confidentiality of Alcohol and Drug Abuse Patient Records regulations: The Federal rules restrict any use of the information to criminally investigate or prosecute any alcohol or drug abuse patient.[facility]In the event this information is protected by the Federal Confidentiality of Alcohol and Drug Abuse Patient Records regulations: The Federal rules restrict any use of the information to criminally investigate or prosecute any alcohol or drug abuse patient.[facility]In the event this information is protected by the Federal Confidentiality of Alcohol and Drug Abuse Patient Records regulations: The Federal rules restrict any use of the information to criminally investigate or prosecute any alcohol or drug abuse patient.[facility]In the event this information is protected by the Federal Confidentiality of Alcohol and Drug Abuse Patient Records regulations: The Federal rules restrict any use of the information to criminally investigate or prosecute any alcohol or drug abuse patient.[facility]In the event this information is protected by the Federal Confidentiality of Alcohol and Drug Abuse Patient Records regulations: The Federal rules restrict any use of the information to criminally investigate or prosecute any alcohol or drug abuse patient.[facility]In the event this information is protected by the Federal Confidentiality of Alcohol and Drug Abuse Patient Records regulations: The Federal rules restrict any use of the information to criminally investigate or prosecute any alcohol or drug abuse patient.[facility] HospitalIn the event this information is protected by the Federal Confidentiality of Alcohol and Drug Abuse Patient Records regulations: The Federal rules restrict any use of the information to criminally investigate or prosecute any alcohol or drug abuse patient.[facility] the event this information is protected by the Federal Confidentiality of Alcohol and Drug Abuse Patient Records regulations: The Federal rules restrict any use of the information to criminally investigate or prosecute any alcohol or drug abuse patient.[facility] the event this information is protected by the Federal Confidentiality of Alcohol and Drug Abuse Patient Records regulations: The Federal rules restrict any use of the information to criminally investigate or prosecute any alcohol or drug abuse patient.[facility] the event this information is protected by the Federal Confidentiality of Alcohol and Drug Abuse Patient Records regulations: The Federal rules restrict any use of the information to criminally investigate or prosecute any alcohol or drug abuse patient.[facility] the event this information is protected by the Federal Confidentiality of Alcohol and Drug Abuse Patient Records regulations: The Federal rules restrict any use of the information to criminally investigate or prosecute any alcohol or drug abuse patient.[facility] the event this information is protected by the Federal Confidentiality of Alcohol and Drug Abuse Patient Records regulations: The Federal rules restrict any use of the information to criminally investigate or prosecute any alcohol or drug abuse patient.[facility] Reason for Visit (unrecogniz ed section and content) Reason Comments Yearly Exam Reason Comments Irregular Menstrual Cycle 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 Specialty Diagnoses / Procedures Referred By Contac t Referred To Contact [facility] Diagnoses Abnormal uterine bleeding (AUB) Generalized abdominal cramping Procedures PELVIC US WHI US PELVIC NONOBSTETRIC REAL-TIME IMAGE COMPLETE Beba Spaulding, SERVICE ATTENDANT [place].BLACKING MACHINE OPERATOR [address] [place] [address] [facility] [address] [place] [address] Referral ID Status Reason Start Date Expiration Date V isits Requested Visits Authorized [id number] Closed Auto-Generate d Referral 09/14/2022 05/13/2023 1 1 Reason Comments Care Reason Comments Med Change Request Reason Onset Date Comments Care 11/23/2022 Reason Comments Question (OB Question) Reason Onset Date Comments Care 12/21/2022 Reason Comments US Specialty Diagnoses / Procedures Referred By Contac t Referred To Contact [facility] Diagnoses 16 weeks gestation of Encounter for supervision of normal first in first trimester Procedures OBSTETRIC ULTRASOUND WHI US PREG UTERUS AFTER 1ST TRIMEST GESTATION Kayla Duran, SERVICE ATTENDANT [place].CN[facility] [address] [place] [address] [facility] [address] [place] [address] Referral ID Status Reason Start Date Expiration Date Visits Requested Visits Authorized [id number] Authorized Auto-Generat ed Referral 01/02/2023 05/13/2023 20 [...] 04/16/2023 Reason Onset Date Comments Care 05/02/2023 Reason Onset Date Comments Care 05/30/2023 FOR RECORDS PERTAINING TO PATIENTS WHO ARE [...] BE BASED ON THE PRIMARY CLINICAL RECORDS. [facility], [facility]. provides no warranty or guarantee of the accuracy or completeness of information in this document.
--- NOTE | 2023-06-11 16:55 | EDS_ITS ---
HPI <MILTON Lutz - Last Filed: 06/11/23 18:00> History of Present Illness Chief Complaint: Neuro S/Sx Narrative Narrative: Patient is a 27-year-old female that has no significant medical history who recently gave 2 days ago. Patient states at roughly 11 AM today, the patient had a left-sided headache with some right eye visual changes such as some blurred vision. Patient took a nap, states when she woke up her headache was worse and she had some worsening right vision changes which she is feels that half of her vision was blurry. Patient took Tylenol, this decreased her headache and patient's vision is now back to normal. She called her BUSINESS EDUCATION PROFESSOR who referred her to the emergency department. Patient denies any upper or lower extremity weakness. Patient states to have some dizziness. Patient states that when she was trying to talk, she had some difficulty finding the words however patient also has been sleep deprived secondary to giving . Patient at this time is mostly asymptomatic PFSH <MILTON Lutz - Last Filed: 06/11/23 18:00> [facility] Medical History (Updated 06/11/23 @ 18:00 by MILTON Lutz) Anxiety Home Medications acetaminophen 500 mg tablet 1,000 mg (2 x 500 mg) PO Q6H PRN PRN Pain 1-10 Or Fever #0 tabs 06/10/23 [Rx Last Taken Unknown] ibuprofen 600 mg tablet 600 mg PO Q6H PRN PRN Pain Score 1-3 #0 tabs 06/10/23 [Rx Last Taken Unknown] Allergy/AdvReac Type Severity Reaction Status Date / Time morphine Allergy Other Verified 06/11/23 15:22 Social History Smoking Status: Never smoker ROS <MILTON Lutz - Last Filed: 06/11/23 18:00> ROS ED ROS Narrative Constitutional: Negative for fever, chills, weight loss, weakness Eyes: Negative for vision loss, double vision. Positive for vision changes in the right eye ENT: Negative for any sore throat, ear pain, congestion Cardiovascular: Negative for any chest pain, tightness, palpitations Respiratory: Negative for any cough, sputum production, hemoptysis, dyspnea, dyspnea on exertion, orthopnea Gastrointestinal: Negative for any abdominal pain, nausea, vomiting, diarrhea, constipation, blood in stool, blood in vomit : Negative for any urinary frequency, dysuria, retention, blood in urine Muscle skeletal: Negative for any myalgias, arthralgias, neck pain, back pain Neurological: Negative for any syncope, paresthesias. Positive headache, dizziness Skin: Negative for any rashes, lumps, itching, abrasions, lacerations Psychiatric: Negative for any depression, anxiety, stress, suicidal ideation, homicidal ideation Hematologic: Negative for any easy bruising, excessive bruising, easy bleeding Allergies: Negative for any eczema, hives, rash EXAM <MILTON Lutz - Last Filed: 06/11/23 18:00> Physical Exam Narrative Exam Narrative: Vital signs reviewed. Patient is alert and orient x 4, patient is currently breast-feeding the child while I was doing my examination. Patient has a headache to the left side of the head at a 3 on the pain scale. HEET: Head normocephalic atraumatic, TMs clear bilaterally. Posterior pharynx is clear, moist mucous membranes. Nares clear bilaterally. Pupils are equal round reactive to light. Negative for any photophobia Neck: Supple with no lymphadenopathy or tenderness. No signs of meningismus. Cardiac: Regular rate and rhythm no murmurs gallops or rubs, equal peripheral pulses bilaterally. Respiratory: Lungs clear to auscultation bilaterally. No chest tenderness. Abdomen: Soft, nontender, nondistended. No abdominal bruit or pulsatile masses. No hepatosplenomegaly Extremities: No peripheral edema, no signs of gross trauma or deformity. Active full range of motion of all extremities. Neuro: Cranial nerves II through XII intact, no focal neurological deficits. NIH stroke scale 0 Skin: Clean dry and intact with no rash, purpura, petechiae, vesicles or pustules. Backs/flank: No CVA tenderness, no midline spinal tenderness, no deformity. Psych: Normal mood and affect. No SI, HI or acute psychosis. Const Vital Signs: 06/11/23 15:22 06/11/23 16:29 Temperature 97.4 F L Temperature Source Temporal Pulse Rate 124 H 70 Respiratory Rate 16 16 Blood Pressure 119/83 H 119/84 H Blood Pressure Mean 95 95 Pulse Ox 99 99 Oxygen Delivery Method Room Air Room Air Positive well nourished and well developed General Appearance ED: well developed <Dr. Noé Matias MD - Last Filed: 06/11/23 17:55> Physical Exam Const Vital Signs: 06/11/23 15:22 06/11/23 16:29 Temperature 97.4 F L Temperature Source Temporal Pulse Rate 124 H 70 Respiratory Rate 16 16 Blood Pressure 119/83 H 119/84 H Blood Pressure Mean 95 95 Pulse Ox 99 99 Oxygen Delivery Method Room Air Room Air MDM <Cali Mallory NP-C - Last Filed: 06/11/23 18:00> [facility] Lab Data Labs: Laboratory Results - last 24 hr 06/11/23 17:11 WBC 12.3 H RBC 3.26 L Hgb 8.9 L Hct 27.8 L MCV 85.3 MCH 27.3 MCHC 32.0 RDW Std Deviation 40.7 RDW Coeff of Rebekah 13.4 Plt Count 212 MPV 11.0 Immature Gran % (Auto) 0.600 Neut % (Auto) 63.0 Lymph % (Auto) 26.1 [place] % (Auto) 6.3 Eos % (Auto) 3.3 Baso % (Auto) 0.7 Absolute Neuts (auto) 7.8 H Absolute Lymphs (auto) 3.22 Nucleated RBC % 0 Sodium 139 Potassium 3.7 Chloride 107 Carbon Dioxide 27.0 Anion Gap 5 BUN 6 L Creatinine 0.65 Estim Creat Clear Calc 147.17 Est GFR (MDRD) Af Amer 142 Est GFR (MDRD) Non-Af 117 BUN/Creatinine Ratio 9.3 L Glucose 93 Calcium 9.6 Radiography Diagnostic Testing: Clinical Impression(s) from Imaging Studies Brain CT 06/11/23 15:50 IMPRESSION: Normal unenhanced CT scan of the brain. Electronically Signed: Saul Holliday MD at 17:04 EST , Treatment and Re-Evaluation :: Patient appears to be in no obvious distress, vital signs are stable. Presenting to the emergency department with complaints of left-sided headache, right-sided vision changes. Differential diagnosis includes venous thrombosis secondary to the hypercoagulable state of , migraine headache, tension headache, sleep deprivation. Patient will receive a CT scan of the brain, basic laboratory values. All radiologic examinations were read, reviewed by the emergency department attending. From these reads, a plan of care will be put in place. Patient's CT scan of the brain was unremarkable. Patient's CBC showed a leukocytosis of 12.3, this is improved since the 2023 was 14.6. Patient's hemoglobin is 8.9 however patient did give 2 days ago. Patient's chemistries were unremarkable. At this time, patient has asymptomatic. Patient has no neurological focal deficit. I do not believe that any MRI is emergency necessary. Patient will need to follow-up closely with her BUSINESS EDUCATION PROFESSOR, if these headaches persist, patient will then need to get an MRI. I spoke with the patient at length, she is happy with the plan of care, all questions answered, stable for discharge. <Dr. Noé Matias MD - Last Filed: 06/11/23 17:55> [facility] Narrative Medical decision making narrative: I have personally performed a face to face assessment of the patient and have reviewed the ANISH Note. I performed a substantive portion of the visit including all aspects of the following. My moya findings include: History is 27-year-old female status post spontaneous vaginal delivery at 40 weeks and 2 days approximately 2 days ago. She is underwent well. There are no complications during the or delivery. Patient has had a headache today with possible right-sided visual field cut. The headache is nearly resolved and the visual field cut has resolved. She has had no weakness to her arms or legs. No history of clotting problems. No head trauma. No fever. No prior neurological problems. Exam is [well-appearing 27-year-old female. Initial blood pressure 119/83. Patient is in no distress. When I am in the room she is actively breast- feeding. H EENT exam appears round reactive light. Extra motions are intact. Normal speech. No facial droop. Neck nontender. Lungs clear. Heart regular rhythm rate about 70. Abdomen soft nontender. Moving all 4 extremities. 5 out of 5 personnel generalist manager strength. Dorsi plantarflexion intact. Normal motor strength. Equal symmetrical. Negative drift of either the upper or lower extremities. NIH score is 0.] Medical Decision Making [27-year-old status post delivery with a headache. Exam normal. NIH normal. CAT scan of the brain negative. She is doing well at 5:50 PM. She will be discharged home. She and I believe the woman in her room with his family I explained to them if she has continued symptoms she would need further evaluation and possible MRI to rule out a sinus venous thrombosis but there is no reason to believe she has that at this time and her symptoms have resolved.] Other additions or changes: [None] History & Record Review Discussion w/independent historian: Patient Additional record(s) reviewed:: Prior inpatient record, Prior outpatient record, Prior ED visit and Prior labs Lab Data Attestation: I reviewed the patient's lab results. Lab results narrative: CBC shows a white count 12.3. H&H 8.9 and 27.8. Platelets 212. Electrolytes show a gap of 5. Normal BUN and creatinine. Glucose 93. Labs: Laboratory Results - last 24 hr 06/11/23 17:11 WBC 12.3 H RBC 3.26 L Hgb 8.9 L Hct 27.8 L MCV 85.3 MCH 27.3 MCHC 32.0 RDW Std Deviation 40.7 RDW Coeff of Rebekah 13.4 Plt Count 212 MPV 11.0 Immature Gran % (Auto) 0.600 Neut % (Auto) 63.0 Lymph % (Auto) 26.1 [place] % (Auto) 6.3 Eos % (Auto) 3.3 Baso % (Auto) 0.7 Absolute Neuts (auto) 7.8 H Absolute Lymphs (auto) 3.22 Nucleated RBC % 0 Sodium 139 Potassium 3.7 Chloride 107 Carbon Dioxide 27.0 Anion Gap 5 BUN 6 L Creatinine 0.65 Estim Creat Clear Calc 147.17 Est GFR (MDRD) Af Amer 142 Est GFR (MDRD) Non-Af 117 BUN/Creatinine Ratio 9.3 L Glucose 93 Calcium 9.6 Radiography Diagnostic Testing: Clinical Impression(s) from Imaging Studies Brain CT 06/11/23 15:50 IMPRESSION: Normal unenhanced CT scan of the brain. Electronically Signed: Saul Holliday MD at 17:04 EST , Discharge Plan Triage Chief Complaint: Neuro S/Sx ED Midlevel Provider: Cali Mallory ED Provider: Noé Matias Dx/Rx/DC Orders Clinical Impression: Vaginal delivery, Headache, Alteration in vision Instructions: Prevention Women 18 to 39, ED Occipital Neuralgia Prescriptions: No Action acetaminophen 500 mg Tablet 1,000 mg PO Q6H PRN PRN (Reason: Pain 1-10 Or Fever) Qty: 0 0RF ibuprofen 600 mg Tablet 600 mg PO Q6H PRN PRN (Reason: Pain Score 1-3) Qty: 0 0RF Primary Care Provider: Care Physician,No Primary Referrals: Care Physician,No Primary [Primary Care Provider] - Activity Restrictions/Additional Instructions: Please follow-up with your BUSINESS EDUCATION PROFESSOR, if these headaches persist, vision changes, you need to follow-up to receive an MRI of the brain. Please return for any worsening symptoms. Disposition Disposition: Home, Self Care
[2023-06-11 17:22] LABS: Absolute Lymphocyte Count 3.22 X10^3/uL (0.83-4.51); Absolute Neutrophil Count 7.8 X10^3/uL (2.0-7.7); Basophil# 0.09 X10^3/uL; Basophil% 0.7 % (0-1); Eosinophil# 0.41 X10^3/uL; Eosinophils% 3.3 % (0-5); Hematocrit 27.8 % (37-47); Hemoglobin 8.9 g/dL (12.0-15.0); Lymphocyte # 3.22 X10^3/ul (0.83-4.51); Lymphocyte % 26.1 % (19-41); Mean Corpuscular Hgb 27.3 pg (27.0-32.0); Mean Corpuscular Volume 85.3 fL (81-99); Monocyte# 0.78 X10^3/uL; Monocyte% 6.3 % (0-10); NRBC Flagged by Analyzer 0 % (0-5); Neutrophil # 7.75 X10^3/uL (2.7-7.7); Platelet Count 212 K/mm3 (150-450); RBC Distribution Width CV 13.4 % (11.6-14.6); RBC Distribution Width SD 40.7 fl (35.1-43.9); Red Blood Count 3.26 M/mm3 (4.2-5.4); White Blood Count 12.3 K/mm3 (4.4-11.0)
[2023-06-11 17:41] LABS: Anion Gap 5 (5-15); BUN 6 mg/dL (7-18); BUN/Creat Ratio 9.3 RATIO (10-20); Calcium,Total 9.6 mg/dL (8.5-10.1); Chloride 107 mmol/L (98-107); Creatinine, Serum 0.65 mg/dL (0.55-1.02); EST Glomerular Filtration Rate 117 mL/min (>60); Est Glom Filt Rate - Afr Amer 142 mL/min (>60); Estimated Creatinine Clearance 147.17 ml/min; Glucose 93 mg/dL (74-106); Potassium 3.7 mmol/L (3.5-5.1); Sodium Level 139 mmol/L (136-145)
[2023-06-11 18:00] VITALS: RESP 16
[2023-06-11 18:18] VITALS: BP 123/80; PULSE 90; RESP 14; O2SAT 99
== END 2023-06-11 18:25 | disposition home or self-care (01) ==
PROVIDERS: Nurse Practitioner; Emergency Provider Emergency Medicine; Visit Provider Emergency Medicine
DX: R51.9 Headache, unspecified (principal); H54.7 Unspecified visual loss
CPT/HCPCS: 70450; 80048; 85025; 99283